=== PATIENT | male | born 1950 | race Caucasian/White ===

== ENCOUNTER → 2023-05-29 10:41 | Outpatient (REF) | payer OTHER, SELFPAY | LOC: HWRAD 10:41 | PROVIDERS: ATTENDING PHYSICIAN Specialist; FAMILY PHYSICIAN Internal Medicine | DX: C67.9 Malignant neoplasm of bladder, unspecified (principal) | CPT/HCPCS: 74178; Q9967 ==

== ENCOUNTER → 2023-10-09 11:47 | Outpatient (REF) | payer OTHER, SELFPAY ==
[2023-10-09 13:39] LABS: Blood Urea Nitrogen 17 mg/dl (9-20); Calcium 8.5 mg/dl (8.4-10.2); Carbon Dioxide 25 mmol/L (22-30); Chloride 109 mmol/L (98-107); Glucose 165 mg/dl (70-99); Potassium 4.8 mmol/L (3.5-5.1); Sodium 138 mmol/L (135-145); eGFR > 60.00
[2023-10-09 13:49] LABS: % Basophils 0.4 % (0-2); % Eosinophils 3.1 % (0-6); % Immature Granulocytes 1.5 % (0-0.5); % Lymphocytes 27.2 % (20.5-51.1); % Monocytes 8.7 % (1.7-9.3); % Neutrophils 59.1 % (42.2-75.2); Absolute Eosinophils 0.2 10^3/uL (0-0.7); Absolute Immature Granulocytes 0.1 10^3/uL (0-0.05); Absolute Monocytes 0.7 10^3/uL (0.1-0.6); Absolute Neutrophils 4.5 10^3/uL (1.4-6.5); Hemoglobin 7.9 g/dL (13.0-18.0); Mean Corp Hgb Conc. 31.6 g/dL (33.0-37.0); Mean Corpuscular Hgb 31.5 pg (27.0-31.0); Mean Corpuscular Volume 99.6 fL (80.0-94.0); Nucleated Red Blood Cells % 0 % (-); Red Blood Cell Count 2.51 10^6/uL (4.70-6.10); Red Cell Dist. Width 13.9 % (11.5-14.5); White Blood Cell Count 7.5 10^3/uL (4.8-10.8)
== END ==
LOC: OLABP 11:47
PROVIDERS: ATTENDING PHYSICIAN Family Medicine
DX: N17.9 Acute kidney failure, unspecified (principal); E11.9 Type 2 diabetes mellitus without complications; E87.1 Hypo-osmolality and hyponatremia; E83.39 Other disorders of phosphorus metabolism; M62.81 Muscle weakness (generalized); C67.9 Malignant neoplasm of bladder, unspecified; Z48.816 Encounter for surgical aftercare following surgery on the genitourinary system
CPT/HCPCS: 36415; 80048; 85025

== ENCOUNTER → 2023-10-11 11:23 | Outpatient (REF) | payer OTHER, SELFPAY ==
[2023-10-11 12:09] LABS: % Basophils 0.3 % (0-2); % Eosinophils 4.3 % (0-6); % Immature Granulocytes 1.5 % (0-0.5); % Lymphocytes 34.9 % (20.5-51.1); % Monocytes 6.8 % (1.7-9.3); % Neutrophils 52.2 % (42.2-75.2); Absolute Eosinophils 0.3 10^3/uL (0-0.7); Absolute Immature Granulocytes 0.1 10^3/uL (0-0.05); Absolute Lymphocytes 2.3 10^3/uL (1.2-3.4); Absolute Monocytes 0.4 10^3/uL (0.1-0.6); Absolute Neutrophils 3.4 10^3/uL (1.4-6.5); Hematocrit 23.9 % (39.0-52.0); Hemoglobin 7.9 g/dL (13.0-18.0); Mean Corp Hgb Conc. 33.1 g/dL (33.0-37.0); Mean Corpuscular Hgb 31.5 pg (27.0-31.0); Mean Corpuscular Volume 95.2 fL (80.0-94.0); Mean Platelet Volume 11.7 fL (7.4-10.4); Nucleated Red Blood Cells % 0 % (-); Platelet Count 125 10^3/uL (130-400); Red Blood Cell Count 2.51 10^6/uL (4.70-6.10); Red Cell Dist. Width 13.9 % (11.5-14.5); White Blood Cell Count 6.5 10^3/uL (4.8-10.8)
[2023-10-11 12:47] LABS: ALT (SGPT) 13 U/L (0-50); AST (SGOT) 22 U/L (17-59); Albumin 2.7 g/dl (3.5-5.0); Alkaline Phosphatase 90 U/L (38-126); Blood Urea Nitrogen 19 mg/dl (9-20); Calcium 9.1 mg/dl (8.4-10.2); Carbon Dioxide 23 mmol/L (22-30); Chloride 108 mmol/L (98-107); Glucose 121 mg/dl (70-99); Potassium 4.4 mmol/L (3.5-5.1); Sodium 138 mmol/L (135-145); Total Bilirubin 0.2 mg/dl (0.2-1.3); Total Protein 5.9 g/dl (6.3-8.2); eGFR > 60.00
== END ==
LOC: OLABP 11:23
PROVIDERS: ATTENDING PHYSICIAN Family Medicine
DX: N17.9 Acute kidney failure, unspecified (principal); E11.9 Type 2 diabetes mellitus without complications; E87.1 Hypo-osmolality and hyponatremia; E83.39 Other disorders of phosphorus metabolism; M62.81 Muscle weakness (generalized); C67.9 Malignant neoplasm of bladder, unspecified; Z48.816 Encounter for surgical aftercare following surgery on the genitourinary system
CPT/HCPCS: 36415; 80053; 85025

== ENCOUNTER → 2023-10-14 11:59 | Outpatient (REF) | payer OTHER, SELFPAY ==
[2023-10-14 16:32] LABS: % Basophils 0.7 % (0-2); % Immature Granulocytes 1.1 % (0-0.5); % Lymphocytes 40.5 % (20.5-51.1); % Monocytes 6.6 % (1.7-9.3); % Neutrophils 46.1 % (42.2-75.2); Absolute Eosinophils 0.3 10^3/uL (0-0.7); Absolute Immature Granulocytes 0.1 10^3/uL (0-0.05); Absolute Lymphocytes 2.3 10^3/uL (1.2-3.4); Absolute Monocytes 0.4 10^3/uL (0.1-0.6); Absolute Neutrophils 2.6 10^3/uL (1.4-6.5); Hematocrit 26.7 % (39.0-52.0); Hemoglobin 8.4 g/dL (13.0-18.0); Mean Corp Hgb Conc. 31.5 g/dL (33.0-37.0); Mean Corpuscular Hgb 31.7 pg (27.0-31.0); Mean Corpuscular Volume 100.8 fL (80.0-94.0); Mean Platelet Volume 11.9 fL (7.4-10.4); Nucleated Red Blood Cells % 0 % (-); Platelet Count 167 10^3/uL (130-400); Red Blood Cell Count 2.65 10^6/uL (4.70-6.10); Red Cell Dist. Width 14.2 % (11.5-14.5); White Blood Cell Count 5.6 10^3/uL (4.8-10.8)
== END ==
LOC: OLABP 11:59
PROVIDERS: ATTENDING PHYSICIAN Family Medicine
DX: N17.9 Acute kidney failure, unspecified (principal); E11.9 Type 2 diabetes mellitus without complications; E87.1 Hypo-osmolality and hyponatremia; E83.39 Other disorders of phosphorus metabolism; M62.81 Muscle weakness (generalized); C67.9 Malignant neoplasm of bladder, unspecified; Z48.816 Encounter for surgical aftercare following surgery on the genitourinary system
CPT/HCPCS: 36415; 85025

== ENCOUNTER → 2023-10-21 11:51 | Outpatient (REF) | payer OTHER, SELFPAY ==
[2023-10-21 12:11] LABS: % Basophils 0.7 % (0-2); % Immature Granulocytes 0.9 % (0-0.5); % Lymphocytes 45.7 % (20.5-51.1); % Monocytes 9.6 % (1.7-9.3); % Neutrophils 38.1 % (42.2-75.2); Absolute Eosinophils 0.3 10^3/uL (0-0.7); Absolute Immature Granulocytes 0.1 10^3/uL (0-0.05); Absolute Lymphocytes 2.5 10^3/uL (1.2-3.4); Absolute Monocytes 0.5 10^3/uL (0.1-0.6); Absolute Neutrophils 2.1 10^3/uL (1.4-6.5); Hematocrit 29.7 % (39.0-52.0); Hemoglobin 9.7 g/dL (13.0-18.0); Mean Corp Hgb Conc. 32.7 g/dL (33.0-37.0); Mean Corpuscular Hgb 31.4 pg (27.0-31.0); Mean Corpuscular Volume 96.1 fL (80.0-94.0); Mean Platelet Volume 12.1 fL (7.4-10.4); Nucleated Red Blood Cells % 0 % (-); Platelet Count 269 10^3/uL (130-400); Red Blood Cell Count 3.09 10^6/uL (4.70-6.10); Red Cell Dist. Width 14.3 % (11.5-14.5); White Blood Cell Count 5.4 10^3/uL (4.8-10.8)
[2023-10-21 12:20] LABS: ALT (SGPT) 13 U/L (0-50); AST (SGOT) 26 U/L (17-59); Albumin 3.3 g/dl (3.5-5.0); Alkaline Phosphatase 78 U/L (38-126); Blood Urea Nitrogen 20 mg/dl (9-20); Calcium 9.4 mg/dl (8.4-10.2); Carbon Dioxide 22 mmol/L (22-30); Chloride 106 mmol/L (98-107); Glucose 157 mg/dl (70-99); Potassium 4.6 mmol/L (3.5-5.1); Sodium 137 mmol/L (135-145); Total Bilirubin 0.2 mg/dl (0.2-1.3); Total Protein 6.2 g/dl (6.3-8.2); eGFR > 60.00
== END ==
LOC: OLABP 11:51
PROVIDERS: ATTENDING PHYSICIAN Family Medicine
DX: N17.9 Acute kidney failure, unspecified (principal); E11.9 Type 2 diabetes mellitus without complications; E87.1 Hypo-osmolality and hyponatremia; E83.39 Other disorders of phosphorus metabolism; M62.81 Muscle weakness (generalized); C67.9 Malignant neoplasm of bladder, unspecified; Z48.816 Encounter for surgical aftercare following surgery on the genitourinary system
CPT/HCPCS: 80053; 85025

== ENCOUNTER → 2023-11-11 09:58 | Outpatient (REF) | payer OTHER, SELFPAY ==
[2023-11-11 14:07] LABS: Blood Urea Nitrogen 18 mg/dl (9-20); Calcium 9.6 mg/dl (8.4-10.2); Carbon Dioxide 24 mmol/L (22-30); Chloride 103 mmol/L (98-107); Glucose 153 mg/dl (70-99); Sodium 138 mmol/L (135-145); eGFR > 60.00
[2023-11-11 14:10] LABS: Hematocrit 29.9 % (39.0-52.0); Hemoglobin 9.5 g/dL (13.0-18.0); Mean Corp Hgb Conc. 31.8 g/dL (33.0-37.0); Mean Corpuscular Hgb 29.7 pg (27.0-31.0); Mean Corpuscular Volume 93.4 fL (80.0-94.0); Platelet Count 476 10^3/uL (130-400); Red Cell Dist. Width 14.6 % (11.5-14.5); White Blood Cell Count 8.9 10^3/uL (4.8-10.8)
[2023-11-11 14:56] LABS: % Basophils 0.4 % (0-2); % Eosinophils 0.8 % (0-6); % Immature Granulocytes 7.6 % (0-0.5); % Monocytes 9.2 % (1.7-9.3); Absolute Eosinophils 0.1 10^3/uL (0-0.7); Absolute Immature Granulocytes 0.7 10^3/uL (0-0.05); Absolute Monocytes 0.8 10^3/uL (0.1-0.6); Absolute Neutrophils 5.4 10^3/uL (1.4-6.5); Nucleated Red Blood Cells % 0 % (-)
== END ==
LOC: OLABP 09:58
PROVIDERS: ATTENDING PHYSICIAN Family Medicine
DX: E78.5 Hyperlipidemia, unspecified (principal); F31.9 Bipolar disorder, unspecified; D64.9 Anemia, unspecified; F33.9 Major depressive disorder, recurrent, unspecified; N10 Acute pyelonephritis; N39.0 Urinary tract infection, site not specified; B95.2 Enterococcus as the cause of diseases classified elsewhere; B96.5 Pseudomonas (aeruginosa) (mallei) (pseudomallei) as the cause of diseases classified elsewhere; Z93.6 Other artificial openings of urinary tract status; E66.9 Obesity, unspecified; M62.81 Muscle weakness (generalized); Z85.51 Personal history of malignant neoplasm of bladder; R26.2 Difficulty in walking, not elsewhere classified; E11.9 Type 2 diabetes mellitus without complications; N17.9 Acute kidney failure, unspecified
CPT/HCPCS: 36415; 80048; 85025

== ENCOUNTER 2023-12-06 00:55 | Inpatient (IN) | payer OTHER, SELFPAY ==
[2023-12-05 22:08] VITALS: BP 146/75
[2023-12-05 22:09] VITALS: BP 146/75
[2023-12-05 22:12] VITALS: BMI 27.6
[2023-12-05 22:30] VITALS: BP 128/83
[2023-12-05 22:33] LABS: % Basophils 0.5 % (0-2); % Eosinophils 0.6 % (0-6); % Immature Granulocytes 0.8 % (0-0.5); % Lymphocytes 14.8 % (20.5-51.1); % Monocytes 9.2 % (1.7-9.3); % Neutrophils 74.1 % (42.2-75.2); Absolute Immature Granulocytes 0.1 10^3/uL (0-0.05); Absolute Monocytes 0.6 10^3/uL (0.1-0.6); Absolute Neutrophils 4.8 10^3/uL (1.4-6.5); Hematocrit 33.9 % (39.0-52.0); Hemoglobin 11.2 g/dL (13.0-18.0); Mean Corpuscular Hgb 29.4 pg (27.0-31.0); Nucleated Red Blood Cells % 0 % (-); Platelet Count 159 10^3/uL (130-400); Red Blood Cell Count 3.81 10^6/uL (4.70-6.10); Red Cell Dist. Width 14.9 % (11.5-14.5); Urine Albumin Trace (Neg - Trace); Urine Bilirubin Negative (Negative); Urine Character Very Cloudy (Clear); Urine Color Yellow; Urine Glucose Negative (Negative); Urine Ketone Negative (Negative); Urine Leukocyte 2+ (Negative); Urine Nitrite Positive (Negative); Urine Occult Blood Trace (Negative); Urine Specific Gravity 1.005 (<1.030); Urine Urobilinogen Negative (Neg - 1+); White Blood Cell Count 6.4 10^3/uL (4.8-10.8)
[2023-12-05 22:53] LABS: Lactic Acid 1.5 mmol/L (0.7-2.0)
[2023-12-05 22:54] LABS: ALT (SGPT) 16 U/L (0-50); AST (SGOT) 32 U/L (17-59); Alkaline Phosphatase 69 U/L (38-126); Blood Urea Nitrogen 18 mg/dl (9-20); Calcium 10.4 mg/dl (8.4-10.2); Carbon Dioxide 25 mmol/L (22-30); Chloride 99 mmol/L (98-107); Estimated Creatinine Clearance 52 ml/min; Glucose 180 mg/dl (70-99); Potassium 5.1 mmol/L (3.5-5.1); Sodium 136 mmol/L (135-145); Total Bilirubin 0.6 mg/dl (0.2-1.3); Total Protein 7.3 g/dl (6.3-8.2); eGFR > 60.00
[2023-12-05 23:00] VITALS: BP 129/67
--- NOTE | 2023-12-05 23:10 | ED.GENMED ---
History of Present Illness
General
Chief Complaint: Male Genito-Urinary Symptoms
Source: patient
Exam Limitations: none
Time Seen by Provider: 12/05/23 22:16
History of Present Illness
History of Present Illness:
73-year-old male who presents for weakness and dizziness. He did have a noted fall yesterday. States he is not really sure why he fell sort of lost balance. Today he became very weak. They are concerned he may have a urinary tract infection. He
does have a history of bladder cancer. Patient denies abdominal pain. Does report he had some vomiting. Denies back pain. Patient states he just feels profoundly weak.
Past History
Past History
ED Past Medical History: Other (Diverticulosis, depression, diabetes, bladder cancer, hypercholesterolemia)
ED Past Surgical History: Urological (Ileostomy, TURP, bladder tumor removed)
Phy Exam
Physical Exam
Physical Exam:
CONSTITUTIONAL Patient alert and oriented to person, place and time. Vital signs reviewed. Does appear a bit frail and weak
HEAD atraumatic, normocephalic.
EYES eyelids normal to inspection, Pupils equally round and reactive to light, Extraocular muscles intact, Conjunctiva normal, Sclera normal.
NECK normal range of motion, Trachea midline, no jugular venous distention.
RESPIRATORY CHEST No respiratory distress noted, Chest expansion equal, Bilateral breath sounds clear.
CARDIOVASCULAR regular and tachycardic.
ABDOMEN right lower abdominal ileostomy noted, very mild lower abdominal tenderness.
BACK normal inspection, no obvious deformities
UPPER EXTREMITY range of motion normal, Motor strength normal, no cyanosis, he has noted swelling to the dorsum of the right hand with mild dorsal tenderness.
LOWER EXTREMITY range of motion normal, Motor strength normal, no cyanosis, no edema. Abrasion noted to the right knee
NEURO Speech normal, No focal motor deficits, Memory normal, Cranial Nerves intact to screening exam.
SKIN skin warm, dry, and normal in color.
Sepsis
Sepsis Screening
Sepsis Assessment: Sepsis
Sepsis Screen
Sepsis Screen: Sepsis
Date: 12/06/23
Time: 00:08
Course
Orders/Labs/Results
Orders:
Orders
12/05/23 22:11
Electrocardiogram (*1) Urgent
Reason for Study: Other
Other Reason for Exam: Possible Sepsis
12/05/23 22:12
EKG- Treatment ONCE
12/05/23 22:16
Complete Blood Count/With Diff Urgent
Comprehensive Metabolic Panel Urgent
Lactic Acid Stat
Urinalysis Reflex To Culture Urgent
Date Specimen was Collected: 12/05/23
Time Specimen was Collected: 22:12
Urine Microscopic Reflex Cult Urgent
Urine Culture Urgent
KANDI Source: U
Specimen Description:
Date Specimen was Collected: 12/05/23
Time Specimen was Collected: 22:12
12/05/23 23:09
CT Head W/o Iv Contrast Urgent
Comment:
Reason For Exam: fall, weakness
CR Chest - 2 Views Urgent
Comment:
Reason For Exam: fever
Hand, Right 3 View [CR Hand - Right Min 3 Views] Urgent
Comment:
Reason For Exam: fall
Knee, Right 4 or More Views [CR Knee- Right 4 Or More View*] Urgent
Comment:
Reason For Exam: fall
12/05/23 23:14
Acetaminophen [Tylenol] 1,000 mg PO NOW STA
12/05/23 23:57
Blood Culture Urgent
KANDI Source: Blood/Venous
Specimen Description:
12/06/23 00:00
Add On- LAB Urgent
Tests Added?: DEPAKOTE LEVEL
12/06/23 00:27
Blood Culture Routine
KANDI Source: Blood/Venous
Specimen Description:
Abnormal Lab Results
12/05/23
22:16
RBC 3.81 L 10^6/uL
(4.70-6.10)
Hgb 11.2 L g/dL
(13.0-18.0)
Hct 33.9 L %
(39.0-52.0)
RDW 14.9 H %
(11.5-14.5)
MPV 11.0 H fL
(7.4-10.4)
Abs Immat Gran (auto) 0.1 H 10^3/uL
(0-0.05)
Absolute Lymphs (auto) 1.0 L 10^3/uL
(1.2-3.4)
Immature Gran % 0.8 H %
(0-0.5)
Lymphocytes % 14.8 L %
(20.5-51.1)
Glucose 180 H mg/dl
(70-99)
Calcium 10.4 H mg/dl
(8.4-10.2)
Ur Occult Blood Reflex Trace A
(Negative)
Urine Nitrite (Reflex) Positive A
(Negative)
Leukocyte Esterase Rfl 2+ A
(Negative)
Urine RBC 7-10 A /HPF
(0-2)
Urine WBC (Reflex) 16-20 A /HPF
(0-5)
Urine Bacteria (Reflex) Moderate A
(Negative)
12/05/23 22:16
12/05/23 22:16
Vital Signs
Temp: 100.9 F
Initial and Last Documented VS:
Initial Vital Signs
Pulse Resp BP Pulse Ox
113 23 146/75 93
12/05/23 22:08 12/05/23 22:08 12/05/23 22:08 12/05/23 22:08
Last Documented Vital Signs
Temp Pulse Resp BP Pulse Ox
100.9 F H 117 25 128/83 96
12/05/23 23:10 12/05/23 22:45 12/05/23 22:45 12/05/23 22:30 12/05/23 22:45
MDM/Problems Addressed
MDM/Problems Addressed:
Urinary tract infection, sepsis
*Radiology
Radiology exam reviewed: preliminary read by ED provider (No fractures noted) and radiology read reviewed
*Pulse Oximetry
Patient hypoxic: no
*EKG
Interpreted by ED Provider?: Yes
Interpretation: abnormal
Rate: tachycardiac
Rhythm: sinus
[place]: normal axis
Ischemia: non-specific ST changes
*Invoicing Machine Operator Interpretation
Rate: tachycardiac
Interpretation: abnormal
Rhythm: sinus
*Critical Care Note
Total Time (30-74mins, 75-104mins- exclusive of procedures): Not Applicable
Data Reviewed
Review of Other/Old Records Reveals: Operative Reports (Several urologic operative report reviewed from -) and Other (Urology history and physical reviewed from 2021)
Source: patient
Further Testing Considered But Not Given:
Consider CT of the abdomen but abdomen soft. Suspect UTI. Treat with antibiotics and admit
Patient Management
Discussion with other providers: Hospitalist
Escalation/DeEscalation of care consider admission/obs:
73-year-old male who presents with profound weakness. Does have nitrite positive urine and do suspect UTI but his ileostomy. No previous cultures to review. No hypoxia. Is a bit tachycardic with a low-grade temperature. Treatment IV fluids and
antipyretics. Cover with antibiotics
ED Attending Note
-
Portions of this chart may have been created with voice recognition software.� Occasional wrong word or��sound alike� substitutions may have occurred due to the inherent limitations of voice recognition software.
Discharge Plan
Departure
Patient Disposition: Admit
Date of Disposition: 12/06/23
Time of Disposition: 00:07
Admit to: Telemetry
Presentation/result/management discussed w/ accepting MD/DO: Hospitalist
Discharge Problem:
Urinary tract infection, Sepsis
Prescriptions:
No Action
metformin 500 MG tablet
500 mg PO BID
glimepiride 2 MG tablet
2 mg PO BID
divalproex 500 MG tablet extended release 24 hr
1,500 mg PO HS
rosuvastatin 10 MG tablet
10 mg PO DAILY
bupropion HCl 150 MG tablet extended release 24 hr
150 mg PO DAILY
Seroquel XR 1 EACH tablet, Ext Rel 24hr dose pack
1 ea PO HS
ascorbic acid (vitamin C) 250 MG tablet,chewable
250 mg PO TID
tamsulosin [Flomax] 0.4 mg Capsule
0.4 mg PO DAILY
Referrals:
Black Graham DO [Family Provider] -
Interventions
Interventions:
*Risk Screen - Suicide Last Done: 12/05/23 22:13
*General Assessment Last Done: 12/05/23 22:09
*Neglect/Abuse Screening Last Done: 12/05/23 22:13
ED- Fall Risk Assessment Last Done: 12/05/23 22:13
ED-Male Genitourinary Assessment Last Done: 12/05/23 22:13
Discharge Date and Time
Print Language: SPANISH
[2023-12-05 23:15] LABS: Urine Bacteria Moderate (Negative); Urine White Cell 16-20 /HPF (0-5)
[2023-12-05] MEDS: TYLENOL 1000 MG PO (23:46)
[2023-12-06] VITALS (12 sets, daily range): BP systolic 116–144; BP diastolic 54–76; PULSE 96; BMI 25.1
[2023-12-06] MEDS: NSS 1000 IV ×2 (00:43→02:41)
[2023-12-06] MEDS: MAXIPIME 2000 MG IV ×3 (00:43→17:10)
[2023-12-06 00:46] LABS: Depakane 72.3 ug/ml (50.0-120.0)
--- NOTE | 2023-12-06 00:51 | HPS.HSE ---
Addendum entered and electronically signed by Delbert Munguia DO 12/06/23 01:16:
A/P:
Fall at Home
- Patient with fall yesterday on flat surface. Pos head impact. No LOC.
- Imaging done in the ED this evening (CT head, XR R hand, knee and chest) with no evidence of acute injury.
- PT / OT evaluations.
- Follow for any new symptoms / complaints.
Original Note:
Family Physician
-
Family Physician: Black Graham
Chief Complaint
-
Fatigue, Weakness
History of Present Illness
Patient is a 73y M with PMH significant for bladder cancer who presents to ED complaining of generalized weakness and fatigue. Patient is extremely somnolent in the ED and has difficulty remaining awake to relay his recent history. He states
that he was seen at [facility] about 2 months ago and underwent cystectomy and ileal conduit formation. Patient notes that he was treated for a urinary tract infection a few weeks ago. He states that he felt similarly weak / tired at that time. He
denies any issues with his ileal conduit / changes in appearance of urine / etc over the past few days. He denies any subjective fevers / chills, cough / dyspnea, N/V/D, etc.
Patient suffered a fall at home yesterday. He states that he was walking on his driveway when his small dog walked between his legs and her tripped - falling onto his R side. He did strike his head / face on the ground. He denies any LOC. He was
able to get up unassisted. He continued to feel very weak / tired throughout the day today and presented to the ED for further evaluation.
Medical History
Past Medical History
Past Medical History: Reports Other
Additional Past Medical History:
Transitional Cell Carcinoma - Bladder Cancer
Bipolar Disorder
ADHD
DM-II
Past Surgical History: Reports Other
Additional Past Surgical History:
TURBT x multiple
Cystectomy / Ileal Conduit Formation
Skin Cancer Excision
L Hand Surgery
Social History
Tobacco: Former Smoker (Quit smoking about 10 years ago. Approx 40 pack years total use.)
Alcohol: Occasional
Drug: None
Family History
Family History: Not pertinent
Allergies / Home Medications
Allergies reflects when Allergies were last updated in [employer].
Home Medications with original date entered in [employer]
Allergy/Medication List:
Allergies
Allergy/AdvReac Type Severity Reaction Status Date / Time
Penicillins Allergy Hives Verified 12/05/23 22:06
Home Medications
divalproex 125 mg tablet,delayed release 375 mg PO QPM 12/06/23
metformin 500 mg tablet 1,000 mg PO BID 12/06/23
This is current med list per patient. Formal med rec in AM may be helpful to confirm no other / missing medications.
Review of Systems
-
History Source: Patient
A 12 point ROS was completed and negative except as noted: Yes
Constitutional: Reports Fatigue; Denies Fever or Chills
EENT: Denies Sore Throat
Respiratory: Denies Cough or Trouble Breathing
Cardiac: Denies Chest Pain or Palpitations
Abdomen/GI: Denies Abdominal Pain, Nausea, Vomiting or Diarrhea
: Denies Dysuria, Frequency or Flank Pain
Musculoskeletal: Reports Joint Pain (R shoulder, knee, hip.)
Neurological: Reports Weakness; Denies Dizzy or Headache
Physical Exam
Vital Signs
Vital Signs
Temp Pulse Resp BP Pulse Ox
100.9 F H 108 23 129/67 96
12/05/23 23:10 12/06/23 00:00 12/06/23 00:00 12/05/23 23:00 12/06/23 00:00
Physical Exam
General: Other (73y M somnolent / lethargic in the ED. Wakes to answer questions / follow commands but falls quickly back to sleep.)
HEENT: Other (Dry MM.)
Respiratory: Other (Decreased at bases - otherwise clear.)
Cardiac: S1/S2 and Regular Rhythm; No Murmur
GI: Soft, Non Distended, Normal Bowel Sounds and Other (Ileal conduit in place in the RLQ draining yellow urine. Post-surgical changes of the abdomen. No significant tenderness / rebound / guarding.)
Musculoskeletal: No Clubbing, No Cyanosis and No Edema
Psych: No Anxious or Depressed
Laboratory Results
-
12/05/23 22:16
12/05/23 22:16
Laboratory Results
Lactic Acid 1.5 mmol/L (0.7-2.0) 12/05/23 22:16
Total Bilirubin 0.6 mg/dl (0.2-1.3) 12/05/23 22:16
AST 32 U/L (17-59) 12/05/23 22:16
ALT 16 U/L (0-50) 12/05/23 22:16
Alkaline Phosphatase 69 U/L (38-126) 12/05/23 22:16
Impression/Plan
-
A/P: Patient is a 73y M with PMH significant for bladder cancer s/p recent cystectomy / ileal conduit formation who presents to ED complaining of generalized weakness and fatigue.
Complicated UTI
Sepsis secondary to the above
- Admit for further evaluation and treatment.
- Patient presents with fever, tachycardia and UA suggestive of infection in patient with new ileal conduit.
- Recent treatment for UTI (a week or two ago) per patient - send to [facility] for records.
- IV abx and adjust as needed based on culture data.
- Supportive care including IVFs, antipyretics, etc.
- Consider abdominal imaging if any new / worsening symptoms, persistent fevers, etc.
- At present, abdominal exam is benign and patient with no localizing complaints.
Acute TME
- This is most likely secondary to sepsis as noted above.
- Depakote level is within normal range - will hold for now in any event pending improvement in mental state.
- Check VBG for completeness to rule out CO2 retention - though no history that would suggest risk factors for this.
- Follow for improvement with treatment of sepsis as noted above.
Bladder Cancer
- Initially diagnosed in 2021 and multiple TURBTs since then, BCG instillation, etc.
- Most recently had cystectomy and ileal conduit formation done at [facility] about 2 months ago.
- Will send for those records for review.
- Patient states that not additional / adjuvant treatments are planned.
- He does note that he was treated with outpatient abx for urine infection about 2 weeks ago.
- Ileal conduit appears to be functioning normally. See above re: possible imaging if symptoms worsen or persist.
DM-II
- Stable. Hold metformin acutely.
- Follow glucose and cover with SSI as needed.
- Update A1C.
Bipolar Disorder
- Currently quite somnolent as noted above.
- Will hold Depakote acutely - restart once mental state is improved / baseline.
DVT Prophylaxis: Subcut Heparin
Code Status: Full
[2023-12-06] MEDS: GENTAMICIN 53.75 MG IV (01:02)
[2023-12-06 01:07] LABS: Venous Blood Gas B.E. -0.3 mmol/L (-4 to +4); Venous Blood Gas pCO2 37 mmHg (35-48); Venous Blood Gas pH 7.42 (7.32-7.43); Venous Blood Gas pO2 157 mmHg (30-50)
[2023-12-06 01:27] LABS: COVID-19 Antigen Negative (Negative)
[2023-12-06 02:19] LABS: Glucose - Point of Care 131 mg/dl (70-99)
[2023-12-06 06:55] LABS: Hematocrit 31.6 % (39.0-52.0); Hemoglobin 10.5 g/dL (13.0-18.0); Mean Corp Hgb Conc. 33.2 g/dL (33.0-37.0); Mean Corpuscular Hgb 30.1 pg (27.0-31.0); Mean Corpuscular Volume 90.5 fL (80.0-94.0); Mean Platelet Volume 10.7 fL (7.4-10.4); Platelet Count 134 10^3/uL (130-400); Red Blood Cell Count 3.49 10^6/uL (4.70-6.10); Red Cell Dist. Width 14.8 % (11.5-14.5)
[2023-12-06 07:26] LABS: Glucose - Point of Care 178 mg/dl (70-99)
[2023-12-06 08:07] LABS: ALT (SGPT) 16 U/L (0-50); AST (SGOT) 37 U/L (17-59); Albumin 3.2 g/dl (3.5-5.0); Alkaline Phosphatase 48 U/L (38-126); Blood Urea Nitrogen 16 mg/dl (9-20); Calcium 9.2 mg/dl (8.4-10.2); Carbon Dioxide 24 mmol/L (22-30); Chloride 107 mmol/L (98-107); Estimated Creatinine Clearance 64 ml/min; Glucose 66 mg/dl (70-99); Potassium 4.6 mmol/L (3.5-5.1); Sodium 142 mmol/L (135-145); Total Bilirubin 0.3 mg/dl (0.2-1.3); Total Protein 6.3 g/dl (6.3-8.2); eGFR > 60.00
[2023-12-06 08:37] LABS: TSH Reflex To Free T4 2.79 uIU/ml (0.47-4.68)
[2023-12-06 08:57] LABS: Glycohemoglobin (HgbA1c) 7.1 % (4.0-5.6)
[2023-12-06 09:15] LABS: Hepatitis C Antibody Negative (Negative)
--- NOTE | 2023-12-06 09:56 | W.PN.HOSP.TC ---
Today's Communication/Plan
-
see A/P
Assessment / Plan
Assessment / Plan
HPI: 73 yo M with PMH significant for bladder cancer who presented to ED complaining of generalized weakness and fatigue.
He stated that he was seen at [facility] about 2 months ago and underwent cystectomy and ileal conduit formation.
Patient noted that he was treated for an urinary tract infection a few weeks ago. He states that he felt similarly weak / tired at that time. He denies any issues with his ileal conduit / changes in appearance of urine / etc over the past few days.
He denies any subjective fevers / chills, cough / dyspnea, N/V/D, etc.
Patient suffered a fall at home the day [employer]. He was walking on his driveway when his small dog walked between his legs and he tripped - falling onto his R side. He did strike his head / face on the ground. He denies any LOC. He was able to get
up unassisted. He continued to feel very weak / tired throughout the day today and presented to the ED for further evaluation.
A/P:
# Generalized weakness likely 2/2 complicated UTI
# Sepsis secondary to the above
Pt with new ileal conduit,
Recent treatment for UTI (a week or two ago) per patient - pending [facility] records.
UA suggestive of infection.
Follow urine culture
Follow blood culture
Cont current Abx with cefepime and adjust as needed based on culture data.
Cont supportive care including IVFs, antipyretics, etc.
# Acute metabolic encephalopathy, most likely secondary to sepsis as noted above.
MS returned to baseline, AOX3
Depakote level is within normal range, resume [employer] Depakote
VBG checked for completeness sake, VGB unrevealing
# Fall at Home due to weakness
Imaging done in the ED (CT head, XR R hand, knee and chest) with NO evidence of acute injury.
PT / OT evaluations.
# Bladder Cancer
Initially diagnosed in 2021 and multiple TURBTs since then, BCG instillation, etc.
Most recently had cystectomy and ileal conduit formation done at [facility] about 2 months ago [employer]
Will send for those records for review.
Patient states that not additional / adjuvant treatments are planned.
He does note that he was treated with outpatient abx for urine infection about 2 weeks ago [employer]
Ileal conduit appears to be functioning normally.
# DM-II, Stable.
Hold metformin acutely.
Follow glucose and cover with SSI as needed.
Update A1C.
# Bipolar Disorder, stable
Improved MS, resume [employer] Depakote
DVT Prophylaxis: Subcut Heparin
Code Status: Full
Anticipated Discharge: 24 - 48 hours
Subjective/Interval History
-
Date of Service: December 06, 2023
Objective Data
-
Labs:
Laboratory Results
12/05/23 12/06/23
22:16 06:22
WBC 6.4 5.0
Hgb 11.2 L 10.5 L
Hct 33.9 L 31.6 L
Plt Count 159 134
Sodium 136 142
Potassium 5.1 4.6
Chloride 99 107
Carbon Dioxide 25 24
BUN 18 16
Creatinine 1.1 0.9
Glucose 180 H 66 L
Calcium 10.4 H 9.2
Total Bilirubin 0.6 0.3
AST 32 37
ALT 16 16
Alkaline Phosphatase 69 48
Vital Signs:
Vital Signs
Temp Pulse Resp BP Pulse Ox
36.8 C 92 18 144/73 98
12/06/23 07:20 12/06/23 07:20 12/06/23 07:20 12/06/23 07:20 12/06/23 07:20
I&O
12/05/23 12/06/23 12/07/23
06:59 06:59 06:59
Intake Total 500 / 500
Output Total 875 / 875
Balance -375 / -375
Review of Systems
-
All other systems: Reviewed and negative
Physical Exam
-
General: Well Developed, Well Nourished, No Apparent Distress, Comfortable and Conversant; Negative Respiratory Distress
HEENT: Normocephalic, Atraumatic, Nose Appears Normal and Ears Appear Normal; Negative Oxygen
Respiratory: Clear to Auscultation and Non Labored Respirations; Negative Accessory Resp Muscle Use
Cardiac: Regular Rhythm and S1/S2
GI: Soft, Nontender, Nondistended and Normal Bowel Sounds
Genito-urinary: Other (Ileal Conduit )
Skin: Warm and Dry
Neuro: Awake, Alert, Oriented and AO x 3
Psych: Calm and Intact Judgement/Insight
Data Reviewed
-
Labs: Labs Reviewed by me
[2023-12-06] MEDS: HEPARIN 5000 UNITS SC ×2 (10:33→20:38)
[2023-12-06] MEDS: NSS IV (10:56)
[2023-12-06 11:49] LABS: Glucose - Point of Care 153 mg/dl (70-99)
[2023-12-06] MEDS: NOVOLOG FLEXPEN-LOW RESISTANCE 1 UNITS SC ×2 (11:54→17:10)
[2023-12-06] MEDS: NOVOLOG FLEXPEN-LOW RESISTANCE SC (11:54)
[2023-12-06 16:50] LABS: Glucose - Point of Care 176 mg/dl (70-99)
[2023-12-06] MEDS: STERILE WATER FOR INJECTION 10 ML IV (17:11)
[2023-12-06] MEDS: DEPAKOTE (12 HR RELEASE) 375 MG PO (17:30)
[2023-12-06] MEDS: SEROQUEL 100 MG PO (20:38)
[2023-12-06 21:21] LABS: Glucose - Point of Care 158 mg/dl (70-99)
[2023-12-07] VITALS (7 sets, daily range): BP systolic 130–170; BP diastolic 73–87; PULSE 90–105
[2023-12-07] MEDS: STERILE WATER FOR INJECTION 10 ML IV ×3 (00:16→17:58)
[2023-12-07] MEDS: MAXIPIME 2000 MG IV ×3 (00:16→17:58)
[2023-12-07] MEDS: TYLENOL 650 MG PO (05:26)
[2023-12-07 06:49] LABS: Hematocrit 31.6 % (39.0-52.0); Hemoglobin 10.4 g/dL (13.0-18.0); Mean Corp Hgb Conc. 32.9 g/dL (33.0-37.0); Mean Corpuscular Hgb 30.2 pg (27.0-31.0); Mean Corpuscular Volume 91.9 fL (80.0-94.0); Platelet Count 146 10^3/uL (130-400); Red Blood Cell Count 3.44 10^6/uL (4.70-6.10); Red Cell Dist. Width 14.8 % (11.5-14.5); White Blood Cell Count 5.1 10^3/uL (4.8-10.8)
[2023-12-07 07:25] LABS: Blood Urea Nitrogen 14 mg/dl (9-20); Calcium 9.6 mg/dl (8.4-10.2); Carbon Dioxide 22 mmol/L (22-30); Chloride 106 mmol/L (98-107); Estimated Creatinine Clearance 64 ml/min; Glucose 127 mg/dl (70-99); Potassium 4.4 mmol/L (3.5-5.1); Sodium 140 mmol/L (135-145); eGFR > 60.00
[2023-12-07 08:38] LABS: Glucose - Point of Care 248 mg/dl (70-99)
[2023-12-07] MEDS: CRESTOR 10 MG PO (09:37)
[2023-12-07] MEDS: WELLBUTRIN XL (24 hour extended release) 150 MG PO (09:37)
[2023-12-07] MEDS: HEPARIN 5000 UNITS SC ×2 (09:37→19:52)
[2023-12-07] MEDS: NOVOLOG FLEXPEN-LOW RESISTANCE 2 UNITS SC (09:38)
--- NOTE | 2023-12-07 10:51 | W.PN.HOSP.TC ---
Today's Communication/Plan
-
see A/P
Assessment / Plan
Assessment / Plan
HPI: 73 yo M with PMH significant for bladder cancer who presented to ED complaining of generalized weakness and fatigue.
He stated that he was seen at [facility] about 2 months ago and underwent cystectomy and ileal conduit formation.
Patient noted that he was treated for an urinary tract infection a few weeks ago. He states that he felt similarly weak / tired at that time. He denies any issues with his ileal conduit / changes in appearance of urine / etc over the past few days.
He denies any subjective fevers / chills, cough / dyspnea, N/V/D, etc.
Patient suffered a fall at home the day [employer]. He was walking on his driveway when his small dog walked between his legs and he tripped - falling onto his R side. He did strike his head / face on the ground. He denies any LOC. He was able to get
up unassisted. He continued to feel very weak / tired throughout the day today and presented to the ED for further evaluation.
A/P:
# Generalized weakness likely 2/2 complicated UTI
# Sepsis secondary to the above
Pt with new ileal conduit,
Recent treatment for UTI (a week or two ago) per patient - pending [facility] records.
UA suggestive of infection. Follow urine culture
blood culture x2 negative
Cont current Abx with cefepime and adjust as needed based on culture data.
Cont supportive care including IVFs, antipyretics, etc.
# Acute metabolic encephalopathy, most likely secondary to sepsis as noted above.
MS returned to baseline, AOX3
Depakote level is within normal range, resumed [employer] Depakote
VBG checked for completeness sake, VGB unrevealing
# Fall at Home due to weakness
Imaging done in the ED (CT head, XR R hand, knee and chest) with NO evidence of acute injury.
PT / OT recc HH
# Bladder Cancer
Initially diagnosed in 2021 and multiple TURBTs since then, BCG instillation, etc.
Most recently had cystectomy and ileal conduit formation done at [facility] about 2 months ago [employer]
Will send for those records for review.
Patient states that not additional / adjuvant treatments are planned.
He does note that he was treated with outpatient abx for urine infection about 2 weeks ago [employer]
Ileal conduit appears to be functioning normally.
# DM-II, Stable.
Hold metformin acutely.
Follow glucose and cover with SSI as needed.
A1C 7.1%.
# Bipolar Disorder, stable
Improved MS, resume [employer] Depakote
DVT Prophylaxis: Subcut Heparin
Code Status: Full
Anticipated Discharge: 24 - 48 hours
Subjective/Interval History
-
Date of Service: December 07, 2023
Objective Data
-
Labs:
Laboratory Results
12/07/23
06:07
WBC 5.1
Hgb 10.4 L
Hct 31.6 L
Plt Count 146
Sodium 140
Potassium 4.4
Chloride 106
Carbon Dioxide 22
BUN 14
Creatinine 0.9
Glucose 127 H
Calcium 9.6
Vital Signs:
Vital Signs
Temp Pulse Resp BP Pulse Ox
36.8 C 91 18 137/74 98
12/07/23 07:00 12/07/23 07:00 12/07/23 07:00 12/07/23 07:00 12/07/23 07:00
I&O
12/06/23 12/07/23 12/08/23
06:59 06:59 06:59
Intake Total 500 / 500 780 / 780
Output Total 875 / 875 1200 / 1200
Balance -375 / -375 -420 / -420
Review of Systems
-
All other systems: Reviewed and negative
Physical Exam
-
General: Well Developed, Well Nourished, No Apparent Distress, Comfortable and Conversant; Negative Respiratory Distress
HEENT: Normocephalic, Atraumatic, Nose Appears Normal and Ears Appear Normal; Negative Oxygen
Respiratory: Clear to Auscultation and Non Labored Respirations; Negative Accessory Resp Muscle Use
Cardiac: Regular Rhythm and S1/S2
GI: Soft, Nontender, Nondistended and Normal Bowel Sounds
Genito-urinary: Other (Ileal Conduit )
Skin: Warm and Dry
Neuro: Awake, Alert, Oriented and AO x 3
Psych: Calm and Intact Judgement/Insight
Data Reviewed
-
Labs: Labs Reviewed by me
[2023-12-07 11:39] LABS: Glucose - Point of Care 175 mg/dl (70-99)
[2023-12-07] MEDS: NOVOLOG FLEXPEN-LOW RESISTANCE 1 UNITS SC ×2 (11:56→17:58)
[2023-12-07 16:37] LABS: Glucose - Point of Care 180 mg/dl (70-99)
[2023-12-07] MEDS: DEPAKOTE (12 HR RELEASE) 375 MG PO (17:57)
[2023-12-07] MEDS: SEROQUEL 100 MG PO (20:51)
[2023-12-07 21:51] LABS: Glucose - Point of Care 213 mg/dl (70-99)
[2023-12-08] VITALS (7 sets, daily range): BP systolic 121–158; BP diastolic 72–89; PULSE 87–96
[2023-12-08] MEDS: MAXIPIME 2000 MG IV ×4 (00:17→23:57)
[2023-12-08] MEDS: STERILE WATER FOR INJECTION 10 ML IV ×4 (00:18→23:57)
[2023-12-08] MEDS: TYLENOL 650 MG PO (04:57)
[2023-12-08 06:37] LABS: Hematocrit 30.7 % (39.0-52.0); Hemoglobin 10.1 g/dL (13.0-18.0); Mean Corp Hgb Conc. 32.9 g/dL (33.0-37.0); Mean Corpuscular Hgb 29.8 pg (27.0-31.0); Mean Corpuscular Volume 90.6 fL (80.0-94.0); Mean Platelet Volume 10.7 fL (7.4-10.4); Platelet Count 168 10^3/uL (130-400); Red Blood Cell Count 3.39 10^6/uL (4.70-6.10); Red Cell Dist. Width 14.6 % (11.5-14.5)
[2023-12-08 06:58] LABS: Blood Urea Nitrogen 15 mg/dl (9-20); Carbon Dioxide 23 mmol/L (22-30); Chloride 106 mmol/L (98-107); Estimated Creatinine Clearance 72 ml/min; Glucose 149 mg/dl (70-99); Potassium 4.4 mmol/L (3.5-5.1); Sodium 140 mmol/L (135-145); eGFR > 60.00
[2023-12-08 07:59] LABS: Glucose - Point of Care 210 mg/dl (70-99)
[2023-12-08] MEDS: CRESTOR 10 MG PO (08:02)
[2023-12-08] MEDS: HEPARIN 5000 UNITS SC ×2 (08:02→20:32)
[2023-12-08] MEDS: NOVOLOG FLEXPEN-LOW RESISTANCE 2 UNITS SC (08:02)
[2023-12-08] MEDS: WELLBUTRIN XL (24 hour extended release) 150 MG PO (08:07)
[2023-12-08 11:39] LABS: Glucose - Point of Care 178 mg/dl (70-99)
--- NOTE | 2023-12-08 12:58 | W.PN.HOSP.TC ---
Today's Communication/Plan
-
see A/P
Assessment / Plan
Assessment / Plan
HPI: 73 yo M with PMH significant for bladder cancer who presented to ED complaining of generalized weakness and fatigue.
He stated that he was seen at [facility] about 2 months ago and underwent cystectomy and ileal conduit formation.
Patient noted that he was treated for an urinary tract infection a few weeks ago. He states that he felt similarly weak / tired at that time. He denies any issues with his ileal conduit / changes in appearance of urine / etc over the past few days.
He denies any subjective fevers / chills, cough / dyspnea, N/V/D, etc.
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 He was walking on his driveway when his small dog walked between his legs and he tripped - falling onto his R side. He did strike his head / face on the ground. He denies any LOC. He was able to get
up unassisted. He continued to feel very weak / tired throughout the day today and presented to the ED for further evaluation.
A/P:
# Generalized weakness likely 2/2 complicated UTI
# Sepsis secondary to the above
Pt with new ileal conduit,
Recent treatment for UTI (a week or two ago) per patient - pending [facility] records.
UA suggestive of infection. Follow urine culture, positive for Serratia and Pseudomonas
blood culture x2 negative
Cont current Abx with cefepime and adjust as needed based on culture data.
Cont supportive care including antipyretics, etc.
# Acute metabolic encephalopathy, most likely secondary to sepsis as noted above.
MS returned to baseline, AOX3
Depakote level is within normal range, resumed VISITING HOUSEKEEPER Depakote
VBG checked for completeness sake, VGB was unrevealing
# Fall at Home due to weakness
Imaging done in the ED (CT head, XR R hand, knee and chest) with NO evidence of acute injury.
PT / OT recc HH
# Bladder Cancer
Initially diagnosed in 2021 and multiple TURBTs since then, BCG instillation, etc.
Most recently had cystectomy and ileal conduit formation done at [facility] about 2 months ago VISITING HOUSEKEEPER
Will send for those records for review.
Patient states that not additional / adjuvant treatments are planned.
He does note that he was treated with outpatient abx for urine infection about 2 weeks ago VISITING HOUSEKEEPER
Ileal conduit appears to be functioning normally.
# DM-II, Stable.
Hold metformin acutely.
Follow glucose and cover with SSI as needed.
A1C 7.1%.
# Bipolar Disorder, stable
Improved MS, resume VISITING HOUSEKEEPER Depakote
DVT Prophylaxis: Subcut Heparin
Code Status: Full
Anticipated Discharge: 24 - 48 hours
Subjective/Interval History
-
Date of Service: December 08, 2023
Objective Data
-
Labs:
Laboratory Results
12/08/23
06:21
WBC 5.0
Hgb 10.1 L
Hct 30.7 L
Plt Count 168
Sodium 140
Potassium 4.4
Chloride 106
Carbon Dioxide 23
BUN 15
Creatinine 0.8
Glucose 149 H
Calcium 10.0
Vital Signs:
Vital Signs
Temp Pulse Resp BP Pulse Ox
36.6 C 90 16 147/77 98
12/08/23 11:23 12/08/23 11:23 12/08/23 11:23 12/08/23 11:23 12/08/23 11:23
I&O
12/07/23 12/08/23 12/09/23
06:59 06:59 06:59
Intake Total 780 / 780 1470 / 1470
Output Total 1200 / 1200 2250 / 2250
Balance -420 / -420 -780 / -780
Review of Systems
-
All other systems: Reviewed and negative
Physical Exam
-
General: Well Developed, Well Nourished, No Apparent Distress, Comfortable and Conversant; Negative Respiratory Distress
HEENT: Normocephalic, Atraumatic, Nose Appears Normal and Ears Appear Normal; Negative Oxygen
Respiratory: Clear to Auscultation and Non Labored Respirations; Negative Accessory Resp Muscle Use
Cardiac: Regular Rhythm and S1/S2
GI: Soft, Nontender, Nondistended and Normal Bowel Sounds
Genito-urinary: Other (Ileal Conduit )
Skin: Warm and Dry
Neuro: Awake, Alert, Oriented and AO x 3
Psych: Calm and Intact Judgement/Insight
Data Reviewed
-
Labs: Labs Reviewed by me
[2023-12-08] MEDS: NOVOLOG FLEXPEN-LOW RESISTANCE 1 UNITS SC ×2 (13:51→17:51)
--- NOTE | 2023-12-08 16:00 | CM ---
Met with patient at the bedside; initial assessment completed
Pharmacy verified: [facility] @ [id number], [place], [place]
Patient lives with in a multilevel home; 4 steps to enter; 14 steps to 2nd floor master BR/Bath; bath has stall shower with seat/grab bar; powder room on the 1st floor
PLOF: independent with ambulation, stairs, and ADLs; drives; retired
Recent SNF stay in 11/25 @ [facility]; [facility] w/ [facility] prior to admission; agreeable to HH care with [facility]; referral sent via [facility]
Son will provide transport home
Plan: Discharge to home when medically stable with Home Health Services from [facility]
[2023-12-08] MEDS: DEPAKOTE (12 HR RELEASE) 375 MG PO (16:40)
[2023-12-08 16:58] LABS: Glucose - Point of Care 179 mg/dl (70-99)
[2023-12-08] MEDS: SEROQUEL 100 MG PO (20:32)
[2023-12-08 21:38] LABS: Glucose - Point of Care 191 mg/dl (70-99)
[2023-12-09 03:00] VITALS: BP 125/72
[2023-12-09 06:53] LABS: Hematocrit 31.5 % (39.0-52.0); Hemoglobin 10.2 g/dL (13.0-18.0); Mean Corp Hgb Conc. 32.4 g/dL (33.0-37.0); Mean Corpuscular Hgb 28.8 pg (27.0-31.0); Mean Platelet Volume 10.5 fL (7.4-10.4); Platelet Count 214 10^3/uL (130-400); Red Blood Cell Count 3.54 10^6/uL (4.70-6.10); Red Cell Dist. Width 14.5 % (11.5-14.5); White Blood Cell Count 5.7 10^3/uL (4.8-10.8)
[2023-12-09 07:25] LABS: Blood Urea Nitrogen 21 mg/dl (9-20); Calcium 10.1 mg/dl (8.4-10.2); Carbon Dioxide 22 mmol/L (22-30); Chloride 107 mmol/L (98-107); Estimated Creatinine Clearance 64 ml/min; Glucose 158 mg/dl (70-99); Potassium 4.5 mmol/L (3.5-5.1); Sodium 141 mmol/L (135-145); eGFR > 60.00
[2023-12-09 07:40] VITALS: BP 119/81
[2023-12-09 07:41] VITALS: BP 119/81; BP 140/82; BP 148/84; PULSE 89; PULSE 95; PULSE 99
[2023-12-09] MEDS: CRESTOR 10 MG PO (08:10)
[2023-12-09] MEDS: HEPARIN 5000 UNITS SC (08:11)
[2023-12-09] MEDS: MAXIPIME 2000 MG IV (08:12)
[2023-12-09] MEDS: STERILE WATER FOR INJECTION 10 ML IV (08:13)
[2023-12-09] MEDS: WELLBUTRIN XL (24 hour extended release) 150 MG PO (08:13)
[2023-12-09 08:15] LABS: Glucose - Point of Care 220 mg/dl (70-99)
[2023-12-09] MEDS: NOVOLOG FLEXPEN-LOW RESISTANCE 2 UNITS SC (08:36)
[2023-12-09 11:12] VITALS: BP 129/83
[2023-12-09 11:58] LABS: Glucose - Point of Care 179 mg/dl (70-99)
--- NOTE | 2023-12-09 11:59 | W.PN.HOSP.TC ---
Today's Communication/Plan
-
Monitor vital signs see plan
Switch antibiotics to oral
Patient will follow with urology outpatient
Discharge today
Time of discharge 37-minutes
Assessment / Plan
Assessment / Plan
HPI: 73 yo M with PMH significant for bladder cancer who presented to ED complaining of generalized weakness and fatigue.
He stated that he was seen at [facility] about 2 months ago and underwent cystectomy and ileal conduit formation.
Patient noted that he was treated for an urinary tract infection a few weeks ago. He states that he felt similarly weak / tired at that time. He denies any issues with his ileal conduit / changes in appearance of urine / etc over the past few days.
He denies any subjective fevers / chills, cough / dyspnea, N/V/D, etc.
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 He was walking on his driveway when his small dog walked between his legs and he tripped - falling onto his R side. He did strike his head / face on the ground. He denies any LOC. He was able to get
up unassisted. He continued to feel very weak / tired throughout the day today and presented to the ED for further evaluation.
A/P:
# Generalized weakness likely 2/2 complicated UTI
# Sepsis secondary to the above
Pt with new ileal conduit,
Recent treatment for UTI (a week or two ago) per patient - pending [facility] records.
UA suggestive of infection. Follow urine culture, positive for Serratia and Pseudomonas. sensitive to cipro
blood culture x2 negative
dc on cipro
Cont supportive care including antipyretics, etc.
# Acute metabolic encephalopathy, most likely secondary to sepsis as noted above.
MS returned to baseline, AOX3
Depakote level is within normal range, resumed SPEECH AND LANGUAGE CLINICIAN Depakote
VBG checked for completeness sake, VGB was unrevealing
# Fall at Home due to weakness
Imaging done in the ED (CT head, XR R hand, knee and chest) with NO evidence of acute injury.
PT / OT recc HH
# Bladder Cancer
Initially diagnosed in 2021 and multiple TURBTs since then, BCG instillation, etc.
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
Will send for those records for review.
Patient states that not additional / adjuvant treatments are planned.
He does note that he was treated with outpatient abx for urine infection about 2 weeks ago [employer]ECH AND LANGUAGE CLINICIAN
Ileal conduit appears to be functioning normally.
# DM-II, Stable.
Hold metformin acutely.
Follow glucose and cover with SSI as needed.
A1C 7.1%.
# Bipolar Disorder, stable
Improved MS, resume SPEECH AND LANGUAGE CLINICIAN Depakote
DVT Prophylaxis: Subcut Heparin
Code Status: Full
General: Well Developed, Well Nourished, No Apparent Distress, Comfortable and Conversant; Negative Respiratory Distress
HEENT: Normocephalic, Atraumatic, Nose Appears Normal and Ears Appear Normal; Negative Oxygen
Respiratory: Clear to Auscultation and Non Labored Respirations; Negative Accessory Resp Muscle Use
Cardiac: Regular Rhythm and S1/S2
GI: Soft, Nontender, Nondistended and Normal Bowel Sounds
Genito-urinary: Other (Ileal Conduit )
Skin: Warm and Dry
Neuro: Awake, Alert, Oriented and AO x 3
Psych: Calm and Intact Judgement/Insight
Anticipated Discharge: Today
Subjective/Interval History
-
Date of Service: December 09, 2023
denies pain
Objective Data
-
Labs:
Laboratory Results
12/09/23
06:16
WBC 5.7
Hgb 10.2 L
Hct 31.5 L
Plt Count 214 D
Sodium 141
Potassium 4.5
Chloride 107
Carbon Dioxide 22
BUN 21 H
Creatinine 0.9
Glucose 158 H
Calcium 10.1
Vital Signs:
Vital Signs
Temp Pulse Resp BP Pulse Ox
98.7 F 87 16 129/83 98
12/09/23 11:12 12/09/23 11:12 12/09/23 11:12 12/09/23 11:12 12/09/23 11:12
I&O
12/08/23 12/09/23 12/10/23
06:59 06:59 06:59
Intake Total 1470 / 1470 1620 / 1620
Output Total 2250 / 2250 1900 / 1900
Balance -780 / -780 -280 / -280
--- NOTE | 2023-12-09 12:15 | W.DCSUMMARY ---
Discharge Summary
Discharge Data
Date of Admission: 12/06/23
Date of Discharge: 12/09/23
-
Pending Results: No
Hospital Course
73-year-old male with past medical history of bladder cancer came to the hospital with generalized weakness and sepsis which was likely thought was secondary to complicate urinary tract infection given his recent procedure of new ileal conduit.
Patient was initially on IV antibiotics which were later transitioned to oral antibiotics prior to discharge. His urine culture was positive with Pseudomonas and Serratia. He also had acute metabolic encephalopathy secondary to sepsis which over
time continue to improve. Once his symptoms continue to improve, he was then discharged home with instructions to follow-up with all his physicians outpatient.
Discharge Plan
-
Patient Disposition: Home (Routine Discharge)
Discharge Diagnosis/Procedures: Complicated urinary tract infection
Acute metabolic encephalopathy
Diet: As tolerated and Diabetic, Carb Controlled
Activity: As tolerated
Driving Restrictions: As prior to admission
Bathing Restrictions: None
Activity Restrictions/Additional Instructions:
Follow-up with your urologist outpatient
Referrals:
Black Graham, [Family Provider] - in less than 1 week
Prescriptions:
New
ciprofloxacin HCl 500 mg tablet
500 mg PO BID Qty: 14 0RF
Continued
metformin 500 mg Tablet
500 mg PO BID
divalproex 125 mg Tablet,Delayed Release (Dr/Ec)
1,500 mg PO QPM
quetiapine 100 mg Tablet
100 mg PO HS
glimepiride 2 mg Tablet
2 mg PO BID
omega-3 fatty acids Capsule
1 cap PO DAILY
rosuvastatin 10 mg Tablet
10 mg PO DAILY
bupropion HCl 150 mg Tablet Extended Release 24 Hr
150 mg PO DAILY
Discharge Orders:
Discharge Patient (As Directed); Ordered 12/09/23
Ordered By: Kurt Lira
Discharge Date and Time
Discharge Date/Time: 12/09/23 14:08
Print Language: INDONESIAN
[2023-12-09] MEDS: NOVOLOG FLEXPEN-LOW RESISTANCE 1 UNITS SC (12:51)
[2023-12-09] MEDS: FLUAD (65 yr+) 2024-2025 FORMULA 0.5 ML IM (12:52)
--- NOTE | 2023-12-09 13:27 | CM ---
Reviewed chart, patient medically stable for discharge. Met with patient who is agreeable and signed IMM after it was reviewed. He stated that family will come to pick him up.
Plan: Case management will continue to follow and assist with discharge planning. Home.
== END 2023-12-09 14:08 | disposition home or self-care (01) | DRG 871 ==
LOC: 3 WEST ACU 00:55
PROVIDERS: Internal Medicine; Student in an Organized Health Care Education/Training Program; ADMITTING PHYSICIAN Hospitalist; ATTENDING PHYSICIAN Internal Medicine; EMERGENCY PHYSICIAN Emergency Medicine; FAMILY PHYSICIAN Internal Medicine
DX: A41.9 Sepsis, unspecified organism (principal); G93.41 Metabolic encephalopathy; N39.0 Urinary tract infection, site not specified; Z87.891 Personal history of nicotine dependence; C67.9 Malignant neoplasm of bladder, unspecified; E11.9 Type 2 diabetes mellitus without complications; F31.9 Bipolar disorder, unspecified
CPT/HCPCS: 70450; 71046; 73130; 73564; 80048; 80053; 80164; 81003; 81015; 82248; 82805; 82962; 83036; 83605; 83735; 84443; 85025; 85027; 86803; 87040; 87077; 87086; 87186; 87811; 90662; 93005; 96374; 97162; 97166; 99285; G0008

== ENCOUNTER → 2024-01-02 13:17 | Outpatient (REF) | payer OTHER, SELFPAY | LOC: RCS 13:17 | PROVIDERS: ATTENDING PHYSICIAN Nurse Practitioner Family; FAMILY PHYSICIAN Internal Medicine | DX: E87.5 Hyperkalemia (principal) | CPT/HCPCS: 93005 ==

== ENCOUNTER → 2024-01-28 14:19 | Outpatient (REF) | payer OTHER, SELFPAY | LOC: RAD 14:19 | PROVIDERS: ATTENDING PHYSICIAN Physician Assistant; FAMILY PHYSICIAN Internal Medicine | DX: C67.4 Malignant neoplasm of posterior wall of bladder (principal) | CPT/HCPCS: 74178; Q9967 ==

== ENCOUNTER 2024-03-21 01:10 | Inpatient (IN) | payer OTHER, SELFPAY ==
[2024-03-20 19:47] VITALS: BP 116/67
[2024-03-20 19:51] VITALS: BP 116/67
[2024-03-20 19:57] VITALS: BMI 25.5
[2024-03-20 20:00] VITALS: BP 109/70
--- NOTE | 2024-03-20 20:33 | ED.GENMED ---
History of Present Illness
General
Chief Complaint: Weakness
Source: patient
Time Seen by Provider: 03/20/24 20:01
History of Present Illness
History of Present Illness:
This is a 74 y/o male with PMH of bladder cancer who presents to the ED c/o generalized weakness. He admits to feeling so weak his legs 'may give out' and is unable to walk at this time. Pt states he took Tylenol earlier today. He is currently being
tx for a UTI but is unsure when he was diagnosed with it and not sure which specific ABX he is currently taking. Admits to fatigue, mild headache and some abdominal pain when trying to sit up. Admits to decreased appetite. Pt underwent cystectomy
and ileal conduit formation in Oct 2023 and currently has an ostomy. Denies tobacco use and admits to alcohol use on occasion.
Past History
Past History
ED Past Medical History: Other (Diverticulosis, depression, diabetes, bladder cancer, hypercholesterolemia)
ED Past Surgical History: Urological (Ileostomy, TURP, bladder tumor removed)
Phy Exam
Physical Exam
Physical Exam:
Skin: Pale, soft; turgor with delayed recoil
Head: Atraumatic, normocephalic; scalp, pink freely moveable without tenderness
Eyes: sclerae non-icteric; PERRLA
Chest and Lungs: muscle and respiratory effort symmetric without use of accessory muscles; vesicular breath sounds without adventitious sounds; even, quiet breathing
Heart: No lifts or heaves visible; regular rate and rhythm; No murmurs, rubs or gallops
PV: radial, dorsalis pedis and posterior tibial pulses all intact bilaterally
Abdomen: soft, flat, non-distended abdomen; aorta midline with no visible pulsation; normoactive bowel sounds
Course
Orders/Labs/Results
Orders:
Orders
03/20/24 20:41
0.9% Sodium Chloride 1000 ml [Nss] 1,000 ml IV BOLUS
03/20/24 20:42
CT Head W/o Iv Contrast Urgent
Comment:
Reason For Exam: altered mental status
CR Chest - 2 Views Urgent
Comment:
Reason For Exam: altered mental status
03/20/24 20:45
Lactic Acid Q4H
Comment: CANCEL 2nd LACTIC ACID IF 1st LACTIC ACID IS LESS THAN 2
03/20/24 21:13
Ammonia Urgent
Complete Blood Count/With Diff Urgent
Comprehensive Metabolic Panel Urgent
Blood Culture Q30M
KANDI Source: Blood/Venous
Specimen Description:
Blood Culture Q30M
KANDI Source: Blood/Venous
Specimen Description:
03/20/24 21:14
COVID-19 Antigen Urgent
Source: Nasal Swab
Influenza A+B Rapid Molecular Urgent
KANDI Source: Nasal Swab
Specimen Description:
03/21/24 00:45
Lactic Acid Q4H
Comment: CANCEL 2nd LACTIC ACID IF 1st LACTIC ACID IS LESS THAN 2
Abnormal Lab Results
03/20/24
21:13
RBC 4.12 L 10^6/uL
(4.70-6.10)
Hgb 11.8 L g/dL
(13.0-18.0)
Hct 37.0 L %
(39.0-52.0)
MCHC 31.9 L g/dL
(33.0-37.0)
RDW 17.2 H %
(11.5-14.5)
Abs Immat Gran (auto) 0.6 H 10^3/uL
(0-0.05)
Absolute Neuts (auto) 7.0 H 10^3/uL
(1.4-6.5)
Absolute Monos (auto) 1.1 H 10^3/uL
(0.1-0.6)
Immature Gran % 5.1 H %
(0-0.5)
Lymphocytes % 18.3 L %
(20.5-51.1)
Monocytes % 9.8 H %
(1.7-9.3)
Carbon Dioxide 17 L mmol/L
(-30)
BUN 45 H mg/dl
(9-20)
Creatinine 1.8 H mg/dL
(0.7-1.3)
Glucose 115 H mg/dl
(70-99)
AST 85 H U/L
(17-59)
Ammonia < 9 L umol/L
(30)
03/20/24 21:13
03/20/24 21:13
Vital Signs
Initial and Last Documented VS:
Initial Vital Signs
Temp Pulse Resp BP Pulse Ox
97.6 F 98 19 116/67 97
03/20/24 19:47 03/20/24 19:47 03/20/24 19:47 03/20/24 19:47 03/20/24 19:47
Last Documented Vital Signs
Temp Pulse Resp BP Pulse Ox
97.6 F 93 18 109/70 97
03/20/24 19:47 03/20/24 21:30 03/20/24 21:30 03/20/24 20:00 03/20/24 21:30
MDM/Problems Addressed
MDM/Problems Addressed:
74 y/o male with PMH of bladder cancer and is currently being tx for a UTI. Complaints of generalized weakness and fatigue. Pt is unable to walk due to weakness. Pt currently does not meet SIRS criteria but had a similar presentation in the past
when septic from a UTI in Dec 2023.
*Critical Care Note
Total Time (30-74mins, 75-104mins- exclusive of procedures): Not Applicable
ED Attending Note
-
Portions of this chart may have been created with voice recognition software.� Occasional wrong word or��sound alike� substitutions may have occurred due to the inherent limitations of voice recognition software.
Discharge Plan
Departure
Prescriptions:
No Action
metformin 500 mg Tablet
500 mg PO BID
divalproex 125 mg Tablet,Delayed Release (Dr/Ec)
1,500 mg PO QPM
quetiapine 100 mg Tablet
100 mg PO HS
glimepiride 2 mg Tablet
2 mg PO BID
omega-3 fatty acids Capsule
1 cap PO DAILY
rosuvastatin 10 mg Tablet
10 mg PO DAILY
bupropion HCl 150 mg Tablet Extended Release 24 Hr
150 mg PO DAILY
ciprofloxacin HCl 500 mg tablet
500 mg PO BID Qty: 14 0RF
Referrals:
Black Graham, [Family Provider] -
Interventions
Interventions:
*Risk Screen - Suicide Last Done: 03/20/24 19:47
*General Assessment Last Done: 03/20/24 19:58
*Neglect/Abuse Screening Last Done: 03/20/24 19:47
ED- Fall Risk Assessment Last Done: 03/20/24 19:58
*ED COVID-19 Vaccine History Last Done: 03/20/24 19:58
ED- Cardiac Assessment Last Done: 03/20/24 19:58
ED- Neurological Assessment Last Done: 03/20/24 19:58
ED- Pulmonary Assessment Last Done: 03/20/24 19:58
Discharge Date and Time
Print Language: ALGERIAN
[2024-03-20 21:46] LABS: % Basophils 0.8 % (0-2); % Eosinophils 0.6 % (0-6); % Immature Granulocytes 5.1 % (0-0.5); % Lymphocytes 18.3 % (20.5-51.1); % Monocytes 9.8 % (1.7-9.3); % Neutrophils 65.4 % (42.2-75.2); Absolute Basophils 0.1 10^3/uL (0-0.2); Absolute Eosinophils 0.1 10^3/uL (0-0.7); Absolute Immature Granulocytes 0.6 10^3/uL (0-0.05); Absolute Monocytes 1.1 10^3/uL (0.1-0.6); Hemoglobin 11.8 g/dL (13.0-18.0); Mean Corp Hgb Conc. 31.9 g/dL (33.0-37.0); Mean Corpuscular Hgb 28.6 pg (27.0-31.0); Mean Corpuscular Volume 89.8 fL (80.0-94.0); Nucleated Red Blood Cells % 0 % (-); Red Blood Cell Count 4.12 10^6/uL (4.70-6.10); Red Cell Dist. Width 17.2 % (11.5-14.5); White Blood Cell Count 10.7 10^3/uL (4.8-10.8)
[2024-03-20 21:49] LABS: Ammonia < 9 umol/L (9-30)
[2024-03-20 21:52] LABS: ALT (SGPT) 34 U/L (0-50); AST (SGOT) 85 U/L (17-59); Albumin 3.8 g/dl (3.5-5.0); Alkaline Phosphatase 107 U/L (38-126); Blood Urea Nitrogen 45 mg/dl (9-20); Calcium 9.9 mg/dl (8.4-10.2); Carbon Dioxide 17 mmol/L (22-30); Chloride 102 mmol/L (98-107); Estimated Creatinine Clearance 32 ml/min; Glucose 115 mg/dl (70-99); Potassium 5.1 mmol/L (3.5-5.1); Sodium 135 mmol/L (135-145); Total Bilirubin 0.5 mg/dl (0.2-1.3); Total Protein 7.4 g/dl (6.3-8.2); eGFR 38.53
[2024-03-20] MEDS: NSS 1000 IV (22:00)
[2024-03-20 22:01] LABS: COVID-19 Antigen Negative (Negative)
[2024-03-20 22:03] LABS: Mean Platelet Volume 10.3 fL (7.4-10.4); Platelet Count 226 10^3/uL (130-400)
[2024-03-20 22:13] LABS: Urine Albumin Trace (Neg - Trace); Urine Bilirubin Negative (Negative); Urine Character Clear (Clear); Urine Color Yellow; Urine Glucose Negative (Negative); Urine Ketone Negative (Negative); Urine Leukocyte 2+ (Negative); Urine Nitrite Negative (Negative); Urine Occult Blood 1+ (Negative); Urine Urobilinogen Negative (Neg - 1+)
[2024-03-20 22:20] LABS: Urine Squamous Cell 0-2 /LPF (Few)
[2024-03-20 22:21] LABS: Urine Yeast Few (Negative)
[2024-03-20 22:22] LABS: Urine Bacteria Moderate (Negative)
[2024-03-20 23:00] VITALS: BP 141/69
[2024-03-20 23:25] LABS: Lactic Acid 1.9 mmol/L (0.7-2.0)
[2024-03-21] VITALS (9 sets, daily range): BP systolic 128–149; BP diastolic 61–82; PULSE 65–97; O2SAT 97; BMI 24.6
--- NOTE | 2024-03-21 00:16 | ED.GENMED ---
History of Present Illness
General
Chief Complaint: Weakness
Time Seen by Provider: 03/20/24 20:01
History of Present Illness
History of Present Illness:
see previous note
Past History
Past History
ED Past Medical History: Other (Diverticulosis, depression, diabetes, bladder cancer, hypercholesterolemia)
ED Past Surgical History: Urological (Ileostomy, TURP, bladder tumor removed)
Phy Exam
Physical Exam
Physical Exam:
see previous note
Course
Orders/Labs/Results
Orders:
Orders
03/20/24 20:41
0.9% Sodium Chloride 1000 ml [Nss] 1,000 ml IV BOLUS
03/20/24 20:42
CT Head W/o Iv Contrast Urgent
Comment:
Reason For Exam: altered mental status
CR Chest - 2 Views Urgent
Comment:
Reason For Exam: altered mental status
03/20/24 21:13
Ammonia Urgent
Complete Blood Count/With Diff Urgent
Comprehensive Metabolic Panel Urgent
Creatine Phosphokinase Urgent
Blood Culture Q30M
KANDI Source: Blood/Venous
Specimen Description:
Blood Culture Q30M
KANDI Source: Blood/Venous
Specimen Description:
03/20/24 21:14
COVID-19 Antigen Urgent
Source: Nasal Swab
Influenza A+B Rapid Molecular Urgent
KANDI Source: Nasal Swab
Specimen Description:
03/20/24 22:07
Urine Microscopic Reflex Cult Urgent
Urine Reflex Culture from UA [Urinalysis Reflex To Culture] Urgent
Date Specimen was Collected: 03/20/24
Time Specimen was Collected: 22:05
Urine Culture Urgent
KANDI Source: U
Specimen Description:
Date Specimen was Collected: 03/20/24
Time Specimen was Collected: 22:05
03/20/24 22:50
Lactic Acid Q4H
Comment: CANCEL 2nd LACTIC ACID IF 1st LACTIC ACID IS LESS THAN 2
03/21/24 00:19
Pt Eval And Treat Urgent
Activity Level: With Assistance
03/21/24 00:55
Admit/Transfer Patient As Directed
Co-Sign Provider:
Level of Care: Inpatient admission
Assign to:: Medical/Surgical
Physician / Group: hospitalist
Diagnosis: acute kidney injury
Reason for Hospitalization: acute kidney injury
Expected length of stay greater than two midnights?: Yes
ELOS- Estimated Length of Stay in days: 2
I certify the patient meets the requirements for IP care: Yes
PRN Pain Medication Management As Directed
May give lesser potent ordered pain med per pt: Yes
preference::
Protocol:: Medication orders for pain may be administered in a
manner that supports deferring to patient preference
when the pt is:
- Requesting an ordered lesser potent pain medication.
Least to most potent pain medications are defined
as: acetaminophen < NSAID < tramadol < opioids
(morphine, oxycodone, hydromorphone).
- Requesting a lesser dose of the same medication IF
ORDERED.
- Requesting a less intrusive route of administration
if both routes are prescribed by the provider (PO <
IV).
03/21/24 00:56
Code Status As Directed
Resuscitation Status: Full Code
03/21/24 01:00
Flush (0.9% Sodium Chloride) [Flush (Nss)] See Dose Instructions IV PER PROTOCOL
03/21/24 01:01
Add On- LAB Stat
Tests Added?: CPK
03/21/24 01:03
Aztreonam [Azactam] 2,000 mg IV NOW STA
Sterile Water [Sterile Water For Injection] 10 ml IV NOW STA
03/21/24 01:30
0.45% Sodium Chloride 1000 ml [0.45%NaCl] 1,000 ml Sodium Bicarbonate 75 meq IV 150 mls/hr
03/21/24 02:28
Acetaminophen [Tylenol] 650 mg PO Q4HPRN PRN
Bisacodyl [Dulcolax] 10 mg RECTAL [id number] PRN
Docusate W/Senna [Senokot-S] 1 tablet PO BIDPRN PRN
Polyethylene Glycol Powder [Miralax] 17 grams PO DAILYPRN PRN
03/21/24 02:28
Activity As Directed
Activity Level: With Assistance
Orthostatic Vital Signs As Directed
Orthostatic VS Frequency: Daily
Vital Signs As Directed
Frequency: Per unit guidelines
Kidney & Bladder US [US Renal With Bladder] Routine
Comment:
Reason For Exam: acute kidney injury, eval hydro, h/o ileal conduit
DX Deep Vein Thrombosis Video Routine
03/21/24 Breakfast
2000 calorie (17 carb) Diabetic
At Your Request: Limited Participation
Basic Metabolic Panel IN AM
Complete Blood Count/No Diff IN AM
Creatine Phosphokinase IN AM
TSH IN AM
03/21/24 08:00
Bupropion(24Hr)Extended Releas [WELLBUTRIN XL (24 hour extended release)] 150 mg PO DAILY
Glimepiride [Amaryl] 2 mg PO BID AT 0800,1700
Heparin 5,000 units SC Q8
03/21/24 10:00
Aztreonam [Azactam] 2,000 mg IV Q8H
03/21/24 18:00
Divalproex Delayed Rel. 12 Hr [Depakote (12 Hr Release)] 1,500 mg PO QPM
03/21/24 22:00
Quetiapine Fumarate [Seroquel] 100 mg PO HS
Abnormal Lab Results
03/20/24 03/20/24
21:13 22:07
RBC 4.12 L 10^6/uL
(4.70-6.10)
Hgb 11.8 L g/dL
(13.0-18.0)
Hct 37.0 L %
(39.0-52.0)
MCHC 31.9 L g/dL
(33.0-37.0)
RDW 17.2 H %
(11.5-14.5)
Abs Immat Gran (auto) 0.6 H 10^3/uL
(0-0.05)
Absolute Neuts (auto) 7.0 H 10^3/uL
(1.4-6.5)
Absolute Monos (auto) 1.1 H 10^3/uL
(0.1-0.6)
Immature Gran % 5.1 H %
(0-0.5)
Lymphocytes % 18.3 L %
(20.5-51.1)
Monocytes % 9.8 H %
(1.7-9.3)
Carbon Dioxide 17 L mmol/L
(22-30)
BUN 45 H mg/dl
(9-20)
Creatinine 1.8 H mg/dL
(0.7-1.3)
Glucose 115 H mg/dl
(70-99)
AST 85 H U/L
(17-59)
Ammonia < 9 L umol/L
(9-30)
Creatine Kinase 43 L U/L
(55-170)
Ur Occult Blood Reflex 1+ A
(Negative)
Leukocyte Esterase Rfl 2+ A
(Negative)
Urine RBC 3-6 A /HPF
(0-2)
Urine Bacteria (Reflex) Moderate A
(Negative)
Urine Yeast Few A
(Negative)
03/20/24 21:13
03/20/24 21:13
Vital Signs
Initial and Last Documented VS:
Initial Vital Signs
Temp Pulse Resp BP Pulse Ox
36.4 C 98 19 116/67 97
03/20/24 19:47 03/20/24 19:47 03/20/24 19:47 03/20/24 19:47 03/20/24 19:47
Last Documented Vital Signs
Temp Pulse Resp BP Pulse Ox
36.4 C 84 16 131/80 97
03/21/24 02:20 03/21/24 02:20 03/21/24 02:20 03/21/24 02:20 03/21/24 02:20
*Critical Care Note
Total Time (30-74mins, 75-104mins- exclusive of procedures): Not Applicable
Update Note
Update Note:
UPDATE (Christ Rodriguez MD)
I have seen and evaluated the patient after signout and reviewed all labs and imaging.
Focused HPI: 74-year-old male with history as documented presented with generalized weakness. He lives at home with his whom he says requires significant assistance. He says that she called the ambulance tonight because she was afraid he was
going to fall and she cannot help him if he falls. He says he has been feeling very weak for the past few days. He is currently being treated for UTI.
Physical exam: Awake and alert not in distress. Vital signs normal. Abdomen soft, nontender, urostomy in place with clear urine.
Medical Decision Makin-year-old male presenting with generalized weakness for the past few days. Labs sent off including a CBC and a CMP notable for MICHELLE with a creatinine of 1.8 doubled from his baseline and significant elevated BUN�concern
for acute dehydration. He also has a mild metabolic acidosis. Possible starvation ketosis in the setting of poor appetite. His lactate was normal. His urinalysis was essentially equivocal. He is apparently already on antibiotics. He was sent
for a CT head and a chest x-ray which showed no acute pathology. Suspect that this is multifactorial likely UTI contributing as well as dehydration and poor p.o. intake. He was given IV fluids he says he does not feel much better. Not steady on
his feet and currently lives with his essentially alone without assistance. Will plan admit for continued hydration, monitoring of clinical status, PT evaluation. Discussed case with hospitalist.
ED Attending Note
-
Portions of this chart may have been created with voice recognition software.� Occasional wrong word or��sound alike� substitutions may have occurred due to the inherent limitations of voice recognition software.
Discharge Plan
Departure
Patient Disposition: Admit
Date of Disposition: 03/21/24
Time of Disposition: 00:23
Admit to doctor: Ori
Presentation/result/management discussed w/ accepting MD/DO: Hospitalist
Discharge Problem:
Acute dehydration, MICHELLE (acute kidney injury)
Interventions
Interventions:
*Risk Screen - Suicide Last Done: 03/20/24 19:47
*General Assessment Last Done: 03/20/24 19:58
*Neglect/Abuse Screening Last Done: 03/20/24 19:47
ED- Fall Risk Assessment Last Done: 03/20/24 19:58
*ED COVID-19 Vaccine History Last Done: 03/20/24 19:58
*Nursing Disposition Last Done: 03/21/24 02:11
ED- Cardiac Assessment Last Done: 03/20/24 19:58
ED- Neurological Assessment Last Done: 03/20/24 19:58
ED- Pulmonary Assessment Last Done: 03/20/24 19:58
Discharge Date and Time
Discharge Date/Time: 03/21/24 02:12
--- NOTE | 2024-03-21 00:42 | HPS.HSE ---
Family Physician
-
Family Physician: Black Graham
Chief Complaint
-
Generalized weakness
History of Present Illness
This is a 74-year-old history of bladder cancer status post bladder resection with with ileal conduit, [id number] diabetes, seizure disorder presenting to the emergency department with generalized weakness.
Patient is a fairly poor historian and cannot give me exact details. He reports that he has been generally weak ever since his surgery but they said decided to send him to the hospital because she was concerned about worsening weakness. He
reports that he is so weak he is unable to get himself up when he lays down. He tells me that he has been on antibiotics for about a week now but is unsure exactly which. He says a goes on and off antibiotics and a change often. He states he has
not been eating lately due to loss of appetite. He denies any nausea or vomiting. He denies having any diarrhea. He denies any change in the color or quantity of urine output. He tells me that he had fevers at home but he clearly can explain
what that means. When I asked him about the fevers he says yes his sons have been coming to help with the fevers. When asked in what they do he cannot specify. He appears to be slightly encephalopathic compared to his baseline. He denies any
other medication changes.
In the ED he was afebrile with a temp of nine 7.8 blood pressure was 129/67 with a pulse of 88. Was satting 98% on room air. CBC was unremarkable white count of 10.7, hemoglobin of 11.8 and platelet of 226. His labs are notable for elevated BUN
of 45, creatinine 1.8 and a bicarb of 17 with a potassium of 5.1. AST slightly elevated, UA is positive with leukocyte esterase occasional 8 WBCs and few bacteria. COVID test is negative. Flu test negative.
Chest x-ray shows no acute infiltrates. CT of the head shows no acute intracranial process.
Medical History
Past Medical History
Past Medical History: Reports Cancer (Bladder cancer status post surgery), HTN, Hypercholesterolemia, NIDDM and Seizures
Past Surgical History: Reports Urological (Bladder resection with ileal conduit)
Social History
Tobacco: Former Smoker
Alcohol: None
Drug: None
Personal:
Living: With Family
Employment: Retired
Family History
Family History: Not pertinent
Allergies / Home Medications
Allergies reflects when Allergies were last updated in [facility].
Home Medications with original date entered in [facility]
Allergy/Medication List:
Allergies
Allergy/AdvReac Type Severity Reaction Status Date / Time
Penicillins Allergy Hives Verified 03/21/24 00:11
Home Medications
bupropion HCl 150 mg 24 hr tablet, extended release 150 mg PO DAILY Depression 12/06/23
divalproex 125 mg tablet,delayed release 1,500 mg PO QPM Seizures 12/06/23
glimepiride 2 mg tablet 2 mg PO BID Diabetes 12/06/23
metformin 500 mg tablet 500 mg PO BID Diabetes 12/06/23
omega-3 fatty acids 1 cap PO DAILY 12/06/23
quetiapine 100 mg tablet 100 mg PO HS Sleep 12/06/23
rosuvastatin 10 mg tablet 10 mg PO DAILY High Cholesterol 12/06/23
Review of Systems
-
Constitutional: Reports Weight Loss and Fatigue
EENT: Reports No Symptoms
Respiratory: Reports No Symptoms
Cardiac: Reports No Symptoms
Abdomen/GI: Reports No Symptoms
: Reports No Symptoms
Musculoskeletal: Reports No Symptoms
Skin: Reports No Symptoms
Neurological: Reports Weakness
Endocrine: Reports No Symptoms
Hematologic/Lymphatic: Reports No Symptoms
Psych: Reports No Symptoms
Physical Exam
Vital Signs
Vital Signs
Temp Pulse Resp BP Pulse Ox
97.8 F 88 18 129/67 99
03/20/24 22:01 03/21/24 00:02 03/21/24 00:02 03/21/24 00:02 03/21/24 00:02
Physical Exam
General: No Apparent Distress and Poor Appetite
HEENT: NormoCephalic, Anicteric, Moist mucous membranes, Atraumatic and PERRLA
Respiratory: Clear
Cardiac: S1/S2 and Regular Rhythm
Breast: Deferred by me
GI: Soft, Non Tender, Non Distended and Ostomy (w/ clear urine output)
Rectal: Deferred by Provider
Genito-urinary: Clear Urine
Musculoskeletal: No Clubbing, No Cyanosis and No Edema
Skin: Warm
Neuro: Alert, Oriented (oriented to person and place but not year) and Nonfocal/grossly intact
Hematologic/Lymphatic: No Lymphadenopathy
Psych: Calm
Laboratory Results
-
03/20/24 21:13
03/20/24 21:13
Laboratory Results
Lactic Acid 1.9 mmol/L (0.7-2.0) 03/20/24 22:50
Total Bilirubin 0.5 mg/dl (0.2-1.3) 03/20/24 21:13
AST 85 U/L (17-59) H 03/20/24 21:13
ALT 34 U/L (0-50) 03/20/24 21:13
Alkaline Phosphatase 107 U/L (38-126) 03/20/24 21:13
Data Reviewed
-
Diagnostic Radiology: Image Personally Visualized and interpreted and Report Reviewed by me
Lab Data: Labs Reviewed by me
Old Records: Reviewed
Impression/Plan
-
IMPRESSION:
74 y.o w/ history of bladder ca coming in with weakness. Has been on oral antibiotics for few days for UTI. Reports loss of appetite and has not been eating for about 2 days. Denies any abdominal discomfort or pain. No flank pain. Question of
fevers at home. HD stable and afebrile here but found to be weak with new MICHELLE Cr 1.8 from 0.9 and a metabolic acidosis.
PLAN:
1. MICHELLE - BUN/Cr > 2.0 suggestive of prerenal. Lactic acid is normal. HD is normal. Unlikely ATN. No h/o obstruction. Isolated AST elevation.
- admit to med/surg
- pre-renal azotemia, continue IV 1/2 NS + b75 meq of bicarb given acidosis and ileal conduit
- check cpk
- abdominal u/s to eval hydro
- orthostatics in am
- nephrology consult if no improvement with fluids
2. Weakness and AMS - Denies any seizure activity, ammonia level normal. ?UTI and dehydration
- blood and urine cultures sent
- External records indicate he has been on levaquin, IV aztreonam for now pending cultures
- IV fluids w/ bicarb as above
- PT eval
3. Seizure d/o -
- continue valprex qpm, ammonia levels normal, slight AST elevation, no seizure, checking cpk
- quetiapine 100mg po hs
- hold rosuvastatin
3. DM II
- hold metformin
- continue glimepiride
- sliding scale insulin
DVT PPX - heparin sq
Code status - full code
[2024-03-21] MEDS: STERILE WATER FOR INJECTION 10 ML IV ×3 (01:49→17:47)
[2024-03-21] MEDS: AZACTAM 2000 MG IV ×3 (01:50→17:47)
[2024-03-21] MEDS: SODIUM BICARBONATE 1075 MEQ IV ×3 (02:03→16:15)
[2024-03-21 02:37] LABS: Creatine Phosphokinase 43 U/L (55-170)
--- NOTE | 2024-03-21 03:46 | PTCARENOTE ---
Received patient from ER. stable vitals. AAOx3, very forgetful, poor historian, no family members with patient at this time. Bed alarm in place for safety. No complaints. POC reviewed with patient
[2024-03-21] MEDS: AMARYL 2 MG PO ×2 (09:07→17:47)
[2024-03-21] MEDS: WELLBUTRIN XL (24 hour extended release) 150 MG PO (09:07)
[2024-03-21] MEDS: HEPARIN 5000 UNITS SC ×3 (09:07→23:34)
[2024-03-21 09:52] LABS: Hematocrit 32.5 % (39.0-52.0); Hemoglobin 10.6 g/dL (13.0-18.0); Mean Corp Hgb Conc. 32.6 g/dL (33.0-37.0); Mean Platelet Volume 9.8 fL (7.4-10.4); Platelet Count 242 10^3/uL (130-400); Red Blood Cell Count 3.65 10^6/uL (4.70-6.10); Red Cell Dist. Width 17.2 % (11.5-14.5); White Blood Cell Count 9.9 10^3/uL (4.8-10.8)
[2024-03-21 10:08] LABS: Blood Urea Nitrogen 39 mg/dl (9-20); Calcium 8.8 mg/dl (8.4-10.2); Carbon Dioxide 22 mmol/L (22-30); Chloride 106 mmol/L (98-107); Creatine Phosphokinase 62 U/L (55-170); Estimated Creatinine Clearance 41 ml/min; Glucose 75 mg/dl (70-99); Potassium 4.6 mmol/L (3.5-5.1); Sodium 138 mmol/L (135-145); eGFR 52.09
[2024-03-21 10:39] LABS: TSH 2.55 uIU/ml (0.47-4.68)
--- NOTE | 2024-03-21 14:11 | W.PN.HOSP.TC ---
Today's Communication/Plan
-
PT/OT
cont IVF
follow labs/cultures
Assessment / Plan
Assessment / Plan
pt is a 74 year old male
MICHELLE--possibly due to poor appetite and poor oral intake, Lactic acid is normal--cont IVF--creat from 1.8 to 1.4--cpk wnl
Weakness and AMS - Denies any seizure activity, ammonia level normal. ?UTI and dehydration --cultures pending--cont azactam for now--PT/OT
Seizure d/o-- none recently-- continue Valproic acid, ammonia levels normal, slight AST elevation, no seizure--quetiapine 100mg po hs- hold rosuvastatin
DM II -- hold metformin-- continue glimepiride-- sliding scale insulin
DVT proph
Code status - full code
Anticipated Discharge: 24 - 48 hours
Subjective/Interval History
-
Date of Service: March 21, 2024
pt without c/o
Objective Data
-
Labs:
Laboratory Results
03/21/24
09:06
WBC 9.9
Hgb 10.6 L
Hct 32.5 L
Plt Count 242
Sodium 138
Potassium 4.6
Chloride 106
Carbon Dioxide 22
BUN 39 H
Creatinine 1.4 H
Glucose 75
Calcium 8.8
Vital Signs:
max temp for 24 hours
03/21/24
07:28
Temp 97.8 F
Vital Signs
Temp Pulse Resp BP Pulse Ox
97.8 F 85 14 149/82 98
03/21/24 07:28 03/21/24 07:28 03/21/24 07:28 03/21/24 07:28 03/21/24 07:28
I&O
03/20/24 03/21/24 03/22/24
06:59 06:59 06:59
Output Total 400 / 400
Balance -400 / -400
Review of Systems
-
All other systems: Reviewed and negative
Physical Exam
-
General: Well Developed, Well Nourished and No Apparent Distress
HEENT: Normocephalic and Atraumatic; Negative Oxygen
Respiratory: Clear to Auscultation; Negative Wheezes or Rhonchi
Cardiac: Regular Rhythm and S1/S2; Negative Murmur
GI: Soft, Nontender, Nondistended and Normal Bowel Sounds
Musculoskeletal: No Clubbing, No Cyanosis and No Edema
Skin: Warm
Neuro: Awake and Alert
Psych: Calm
--- NOTE | 2024-03-21 17:10 | CM ---
Alert awake oriented patient who lives with his Hermila who lives in a 2 story home with 4 step to enter and 14 steps to bed and bathroom. He is independent in driving and in all activities of daily living.He was offered VN he declined need he
requested [facility]ses [facility].
Hx of [facility] and [place]
Pharmacy [facility]
PCP DR Graham
PLAN Home with [facility]
[2024-03-21] MEDS: DEPAKOTE (12 HR RELEASE) 1500 MG PO (17:48)
[2024-03-21] MEDS: SEROQUEL 100 MG PO (23:34)
[2024-03-21] MEDS: TYLENOL 650 MG PO (23:38)
[2024-03-22] MEDS: SODIUM BICARBONATE 1075 MEQ IV (01:14)
[2024-03-22] MEDS: STERILE WATER FOR INJECTION 10 ML IV ×3 (01:16→17:18)
[2024-03-22] MEDS: AZACTAM 2000 MG IV ×3 (01:17→17:20)
[2024-03-22 07:28] LABS: Hematocrit 30.3 % (39.0-52.0); Hemoglobin 9.9 g/dL (13.0-18.0); Mean Corp Hgb Conc. 32.7 g/dL (33.0-37.0); Mean Corpuscular Hgb 28.6 pg (27.0-31.0); Mean Corpuscular Volume 87.6 fL (80.0-94.0); Mean Platelet Volume 10.2 fL (7.4-10.4); Platelet Count 238 10^3/uL (130-400); Red Blood Cell Count 3.46 10^6/uL (4.70-6.10); Red Cell Dist. Width 17.2 % (11.5-14.5); White Blood Cell Count 7.1 10^3/uL (4.8-10.8)
[2024-03-22 07:54] VITALS: BP 151/71
[2024-03-22 08:08] LABS: Blood Urea Nitrogen 28 mg/dl (9-20); Calcium 8.4 mg/dl (8.4-10.2); Carbon Dioxide 26 mmol/L (22-30); Chloride 105 mmol/L (98-107); Estimated Creatinine Clearance 52 ml/min; Glucose 94 mg/dl (70-99); Magnesium 1.7 mg/dl (1.6-2.3); Sodium 139 mmol/L (135-145); eGFR > 60.00
[2024-03-22] MEDS: WELLBUTRIN XL (24 hour extended release) 150 MG PO (09:16)
[2024-03-22] MEDS: AMARYL 2 MG PO ×2 (09:16→17:17)
[2024-03-22] MEDS: HEPARIN 5000 UNITS SC ×2 (09:17→17:17)
--- NOTE | 2024-03-22 10:52 | W.PN.HOSP.TC ---
Today's Communication/Plan
-
CM for SNF?
Assessment / Plan
Assessment / Plan
pt is a 74 year old male
MICHELLE--possibly due to poor appetite and poor oral intake, Lactic acid is normal--cont IVF--creat from 1.8 to 1.4 to 1.1 --resolved---cpk wnl
Weakness - Denies any seizure activity, ammonia level normal. ?UTI and dehydration --cultures pending--cont azactam for now--PT/OT rec SNF--pt not opposed
Seizure d/o-- none recently-- continue Valproic acid, ammonia levels normal, slight AST elevation, no seizure--quetiapine 100mg po hs- hold rosuvastatin
DM II -- restart metformin-- continue glimepiride-- sliding scale insulin
DVT proph
Code status - full code
Anticipated Discharge: 24 - 48 hours
Subjective/Interval History
-
Date of Service: March 22, 2024
pt asking about results of tests that I just told him about--? cognitive issues, ?dementia
Objective Data
-
Labs:
Laboratory Results
03/22/24
06:34
WBC 7.1
Hgb 9.9 L
Hct 30.3 L
Plt Count 238
Sodium 139
Potassium 4.0
Chloride 105
Carbon Dioxide 26
BUN 28 H
Creatinine 1.1
Glucose 94
Calcium 8.4
Vital Signs:
max temp for 24 hours
03/21/24
23:46
Temp 98.7 F
Vital Signs
Temp Pulse Resp BP Pulse Ox
97.8 F 83 14 151/71 96
03/22/24 07:54 03/22/24 07:54 03/22/24 07:54 03/22/24 07:54 03/22/24 07:54
I&O
03/21/24 03/22/24 03/23/24
06:59 06:59 06:59
Intake Total 2039
Output Total 400 / 400 1949
Balance -400 / -400 /
Review of Systems
-
All other systems: Reviewed and negative
Physical Exam
-
General: Well Developed, Well Nourished and No Apparent Distress
HEENT: Normocephalic and Atraumatic
Respiratory: Clear to Auscultation; Negative Wheezes or Rhonchi
Cardiac: Regular Rhythm and S1/S2; Negative Murmur
GI: Soft, Nontender, Nondistended and Normal Bowel Sounds
Genito-urinary: Other (ileostomy/conduit)
Musculoskeletal: No Clubbing, No Cyanosis and No Edema
Neuro: Awake
[2024-03-22 15:26] VITALS: BP 146/76
[2024-03-22] MEDS: DEPAKOTE (12 HR RELEASE) 1500 MG PO (17:17)
[2024-03-22] MEDS: GLUCOPHAGE 500 MG PO (17:20)
[2024-03-22 19:35] VITALS: BP 155/94; BP 158/79; BP 163/87; PULSE 107; PULSE 97; PULSE 98
[2024-03-22] MEDS: SEROQUEL 100 MG PO (22:00)
[2024-03-22 23:04] VITALS: BP 154/77
[2024-03-23] MEDS: HEPARIN 5000 UNITS SC ×4 (01:12→23:24)
[2024-03-23] MEDS: STERILE WATER FOR INJECTION 10 ML IV ×2 (01:13→11:00)
[2024-03-23] MEDS: AZACTAM 2000 MG IV ×2 (01:13→10:59)
[2024-03-23 07:10] VITALS: BP 154/86
[2024-03-23 07:15] VITALS: BP 145/77; BP 154/86; BP 162/83; PULSE 80; PULSE 83; PULSE 88
[2024-03-23] MEDS: WELLBUTRIN XL (24 hour extended release) 150 MG PO (07:51)
[2024-03-23] MEDS: GLUCOPHAGE 500 MG PO ×2 (07:51→16:06)
[2024-03-23] MEDS: AMARYL 2 MG PO ×2 (07:51→16:06)
[2024-03-23 09:05] LABS: Hematocrit 32.1 % (39.0-52.0); Hemoglobin 10.5 g/dL (13.0-18.0); Mean Corp Hgb Conc. 32.7 g/dL (33.0-37.0); Mean Corpuscular Hgb 28.8 pg (27.0-31.0); Mean Corpuscular Volume 88.2 fL (80.0-94.0); Mean Platelet Volume 10.4 fL (7.4-10.4); Platelet Count 297 10^3/uL (130-400); Red Blood Cell Count 3.64 10^6/uL (4.70-6.10); Red Cell Dist. Width 16.9 % (11.5-14.5); White Blood Cell Count 8.9 10^3/uL (4.8-10.8)
[2024-03-23 09:28] LABS: Blood Urea Nitrogen 26 mg/dl (9-20); Calcium 9.2 mg/dl (8.4-10.2); Carbon Dioxide 23 mmol/L (22-30); Chloride 106 mmol/L (98-107); Estimated Creatinine Clearance 57 ml/min; Glucose 99 mg/dl (70-99); Magnesium 1.9 mg/dl (1.6-2.3); Potassium 4.3 mmol/L (3.5-5.1); Sodium 140 mmol/L (135-145); eGFR > 60.00
--- NOTE | 2024-03-23 11:59 | VNURNOTE ---
Home Health Liaison met with patient to discuss [facility] nurse/therapy, visits, schedule and homebound status. Patient is agreeable and understands that visits at home will be 2-3 x per week to assess and teach medical management.
[facility] brochure provided with contact information. Patient is aware that [facility] will contact them for start of care in 1-2 days after discharge from .
[facility] referral accepted in [facility].
--- NOTE | 2024-03-23 12:11 | CM ---
Patient daughter arrived and now is stating that patient can't go home as he has 2 flights of steps and his has Alzheimer's. Family did not have a plan for patient and son who is POA is on vacation. Daughter requested pt/ot to re assess
patient and CM provided a place for mom information. CM will continue to follow for discharge planning needs.
Plan; reassess for therapy recommendation and work with family for safe discharge
[2024-03-23 12:50] VITALS: BP 137/87; BP 142/75; PULSE 90; O2SAT 97
--- NOTE | 2024-03-23 13:50 | W.DCSUMMARY ---
Documented by User: Alexandria Garcia MD, Resident 03/24/24 15:46
Discharge Summary
Discharge Data
Date of Admission: 03/21/24
Date of Discharge: 03/24/24
-
Pending Results: No
Hospital Course
Discharging Physician : Dr. Bernice Luna, Dr. Alexandria Anderson
Disposition : SNF
Principal Discharge diagnosis : Acute kidney injury, mild right-sided hydronephrosis
Chronic Discharge diagnosis : Hx of bladder cancer s/p resection with ileal conduit, diabetes, seizure, mild cognitive impairment
Hospital Course : 75 y/o male with pmhx of bladder cancer s/p resection with ileal conduit presented to the ED with generalized weakness, decreased appetite and change in mental status. On initial workup, patient was hemodynamically stable, not
septic. Had elevated Cr (1.8), BUN 45 and low bicarb (17). With the impression of prerenal azotemia likely due to poor oral intake, patient was started on IV fluids with bicarb. U/A was positive for leukocyte esterase and WBC 8. Started on
Aztreonam. Renal US showed mild right hydronephrosis. Head CT was negative for acute pathologies. Blood culture neg. COVID neg. Flu neg. CPK, lactic acid, ammonia normal. Urine culture revealed mixed debbie, possible contamination and antibiotic was
discontinued. Patient's symptoms markedly improved and he was back to baseline with Cr 1.0.
Patient is medically stable for discharge with no change in home meds. Patient's family want discharge to a care home.
Important imaging findings :
Renal ultrasound: Mild right hydronephrosis, multiple bilateral renal cysts measuring up to 3.5 cm.
Discharge Plan
-
Patient Disposition: Custodial/SNF
Discharge Diagnosis/Procedures: acute kidney injury (resolved), mild right-sided hydronephrosis, history of bladder cancer s/p resection with ileal conduit, diabetes, seizure, mild cognitive impairment
Condition: Fair
Diet: Diabetic, Carb Controlled
Activity: As tolerated
Driving Restrictions: As prior to admission
Bathing Restrictions: OK to Shower
Referrals:
Black Graham, [Family Provider] - in less than 1 week
Prescriptions:
Continued
metformin 500 mg Tablet
500 mg PO BID
divalproex 125 mg Tablet,Delayed Release (Dr/Ec)
1,500 mg PO QPM
quetiapine 100 mg Tablet
100 mg PO HS
glimepiride 2 mg Tablet
2 mg PO BID
omega-3 fatty acids Capsule
1 cap PO DAILY
rosuvastatin 10 mg Tablet
10 mg PO DAILY
bupropion HCl 150 mg Tablet Extended Release 24 Hr
150 mg PO DAILY
Discharge Orders:
Discharge Patient (As Directed); Ordered 03/24/24
Ordered By: Alexandria Garcia
Discharge Date and Time
Discharge Date/Time: 03/24/24 13:49
Print Language: ETHIOPIAN

Documented by User: Bernice Luna MD 03/25/24 07:57
Discharge Summary
Discharge Data
Date of Admission: 03/21/24
Date of Discharge: 03/24/24
Hospital Course
Discharging Physician : Dr. Bernice Luna, Dr. Alexandria Anderson
Disposition : SNF
Principal Discharge diagnosis : Acute kidney injury (resolved), mild right-sided hydronephrosis
Chronic Discharge diagnosis : Hx of bladder cancer s/p resection with ileal conduit, diabetes, seizure, mild cognitive impairment
Hospital Course : 75 y/o male with pmhx of bladder cancer s/p resection with ileal conduit presented to the ED with generalized weakness, decreased appetite and change in mental status. On initial workup, patient was hemodynamically stable, not
septic. Had elevated Cr (1.8) likley due to prerenal azotemia from poor oral intake. Patient was started on IV fluids with bicarb. U/A was positive for leukocyte esterase and WBC 8. Started on Aztreonam. Renal US showed mild right hydronephrosis.
Urine culture revealed mixed debbie, possible contamination and antibiotic was discontinued. Patient's symptoms markedly improved and he was back to baseline with Cr 1.0.
Patient is medically stable for discharge with no change in home meds. Patient's family wanted discharge to a care home.
Important imaging findings :
Renal ultrasound: Mild right hydronephrosis, multiple bilateral renal cysts measuring up to 3.5 cm.
Discharge Plan
-
Patient Disposition: Custodial/SNF
Discharge Diagnosis/Procedures: acute kidney injury (resolved), mild right-sided hydronephrosis, history of bladder cancer s/p resection with ileal conduit, diabetes, seizure, mild cognitive impairment
Condition: Fair
Diet: Diabetic, Carb Controlled
Activity: As tolerated
Driving Restrictions: As prior to admission
Bathing Restrictions: OK to Shower
Referrals:
Black Graham DO [Family Provider] - in less than 1 week
Prescriptions:
Continued
metformin 500 mg Tablet
500 mg PO BID
divalproex 125 mg Tablet,Delayed Release (Dr/Ec)
1,500 mg PO QPM
quetiapine 100 mg Tablet
100 mg PO HS
glimepiride 2 mg Tablet
2 mg PO BID
omega-3 fatty acids Capsule
1 cap PO DAILY
rosuvastatin 10 mg Tablet
10 mg PO DAILY
bupropion HCl 150 mg Tablet Extended Release 24 Hr
150 mg PO DAILY
Discharge Orders:
Discharge Patient (As Directed); Ordered 03/24/24
Ordered By: Alexandria Garcia
Discharge Date and Time
Discharge Date/Time: 03/24/24 13:49
Print Language: ETHIOPIAN
--- NOTE | 2024-03-23 13:53 | W.PN.HOSP.TC ---
Addendum entered and electronically signed by Alexandria aGrcia MD, Resident 03/24/24 18:03:
- Ultrasound finding of mild right hydronephrosis is a valid diagnosis.
Addendum entered and electronically signed by Marilee Hernandez MD 03/23/24 16:35:
I saw and evaluated the patient independently. I reviewed the resident�s note and agree with findings and plan as documented by Dr. Anderson.
GENERAL: well developed, well nourished, male in no apparent distress
HEENT: NC/AT--no O2 requirements
HEART: regular rate and rhythm, +S1, +S2
LUNGS : clear to auscultation bilaterally
ABDOM: soft, nontender, nondistended, + bowel sounds
EXT: no cyanosis, clubbing, or edema
NEUROLOGIC: apparent dementia (or at least cognitive issues)
MICHELLE--possibly due to poor appetite and poor oral intake, Lactic acid is normal--stop IVF--creat from 1.8 to 1.4 to 1.1 --resolved---cpk wnl--mild right hydronephrosis has no bearing as pt with ileostomy
Weakness - Denies any seizure activity, ammonia level normal. ?UTI and dehydration --urine culture mixed debbie c/w contamination --stop azactam
Seizure d/o-- none recently-- continue Valproic acid, ammonia levels normal, slight AST elevation, no seizure--quetiapine 100mg po hs- hold rosuvastatin
DM II -- restart metformin-- continue glimepiride-- sliding scale insulin
DVT proph
Code status - full code
d/c to SNF when bed available
medically stable for d/c
Original Note:
Today's Communication/Plan
-
Urine culture contamination -- dc abx
Patient medically stable -- Discharge planning
Assessment / Plan
Assessment / Plan
74 year old male with:
#MICHELLE--possibly due to poor appetite and poor oral intake--lactate, cpk wnl--cont IVF--creat from 1.8 to 1.0--resolved
#Weakness--Denies any seizure activity, ammonia level normal. ?UTI and dehydration--blood culture neg, urine culture contamination--will dc aztreonam--discharge planning
#Hx of seizure--continue Valproic acid, ammonia levels normal, slight AST elevation, no seizure--quetiapine 100mg po hs
#DM--restart metformin--continue glimepiride--sliding scale insulin
DVT prophylaxis - Heparin
Code status - full code
Anticipated Discharge: Today
Subjective/Interval History
-
Date of Service: March 23, 2024
Objective Data
-
Labs:
Laboratory Results
03/23/24
08:17
WBC 8.9
Hgb 10.5 L
Hct 32.1 L
Plt Count 297 D
Sodium 140
Potassium 4.3
Chloride 106
Carbon Dioxide 23
BUN 26 H
Creatinine 1.0
Glucose 99
Calcium 9.2
Vital Signs:
Vital Signs
Temp Pulse Resp BP Pulse Ox
97.7 F 80 16 154/86 97
03/23/24 07:10 03/23/24 07:10 03/23/24 07:10 03/23/24 07:10 03/23/24 07:10
I&O
03/22/24 03/23/24 03/24/24
06:59 06:59 06:59
Intake Total 2039 480 / 480
Output Total 1949 2425 / 2425 625 / 625
Balance 90 / 90 -2425 / -2425 -145 / -145
Review of Systems
-
History Source: Patient
Constitutional: Reports No Symptoms
EENT: Reports No Symptoms Reported
Respiratory: Reports No Symptoms
Cardiac: Reports No Symptoms
Abdomen/GI: Reports No Symptoms
Breast: Reports No Symptoms
Genitourinary: Reports No Symptoms
Musculoskeletal: Reports No Symptoms
Skin: Reports No Symptoms
Neuro: Reports No Symptoms
Endocrine: Reports No Symptoms
Hematologic / Lymphatic: Reports No Symptoms
Allergy / Immunology: Reports No Symptoms
Physical Exam
-
General: Well Developed, Well Nourished, No Apparent Distress and Comfortable
HEENT: Normocephalic
Respiratory: Clear to Auscultation
Cardiac: Regular Rhythm and S1/S2
GI: Soft, Nontender and Nondistended
Genito-urinary: No Costovertebral Tender and Other (urostomy)
Musculoskeletal: No Clubbing, No Cyanosis and No Edema
Skin: Warm and Dry
Neuro: Awake, Alert and Oriented
Hematologic / Lymphatic: No Lymphadenopathy
Psych: Calm
--- NOTE | 2024-03-23 14:48 | PN.CDI ---
CDI
- -
CDI:
Physician Documentation Request
Admit Date: 03/21/24 01:10
Dear Doctor Monica,
Clinical Indicators:
The diagnosis of mild right hydronephrosis was included in the signed US of renal with bladder 03/21
Please indicate in your progress notes if you are in agreement that the above diagnosis is valid for this patient:
____ - mild right hydronephrosis is a valid diagnosis (Please include it in your progress notes)
____ - mild right hydronephrosis is not a valid diagnosis for this patient
____ - Other
Use of terms such as suspected, likely, concern for, or probable are acceptable for a diagnosis that is being evaluated, monitored or treated as if it exists and can be coded in the inpatient setting, when documented at the time of discharge.
Thank you,
Neha Vila RN, BSN
CDI Specialist
tiger text
Please use your independent medical judgment in providing your response.
--- NOTE | 2024-03-23 15:26 | CM ---
Patient daughter came to say that patient lives with his in a 2 story home. has Alzheimers and they are unsafe in the home. Patient POA and son is away on vacation and patient daughter states no plan was made for home supports previous to
patient admission. patient daughter indicated that she wants patient placed. CM offered information on a place for mom and PT/OT reassessed patient to confirm appropriateness of the SNF level. CM will continue to follow for discharge planning needs.
Plan; SNF due to patient family update
[2024-03-23 15:36] VITALS: BP 161/83
[2024-03-23] MEDS: STERILE WATER FOR INJECTION IV (17:01)
[2024-03-23] MEDS: DEPAKOTE (12 HR RELEASE) 1500 MG PO (17:06)
[2024-03-23] MEDS: SEROQUEL 100 MG PO (21:27)
[2024-03-23 23:00] VITALS: BP 147/72
[2024-03-24 07:28] LABS: Hematocrit 33.5 % (39.0-52.0); Hemoglobin 10.9 g/dL (13.0-18.0); Mean Corp Hgb Conc. 32.5 g/dL (33.0-37.0); Mean Corpuscular Hgb 28.4 pg (27.0-31.0); Mean Corpuscular Volume 87.2 fL (80.0-94.0); Mean Platelet Volume 9.7 fL (7.4-10.4); Platelet Count 307 10^3/uL (130-400); Red Blood Cell Count 3.84 10^6/uL (4.70-6.10); Red Cell Dist. Width 16.5 % (11.5-14.5); White Blood Cell Count 9.2 10^3/uL (4.8-10.8)
[2024-03-24 07:36] VITALS: BP 158/80
[2024-03-24 07:37] VITALS: BP 158/79; BP 158/80; BP 175/79; PULSE 77; PULSE 83; PULSE 85
[2024-03-24 07:52] LABS: Blood Urea Nitrogen 25 mg/dl (9-20); Carbon Dioxide 25 mmol/L (22-30); Chloride 107 mmol/L (98-107); Estimated Creatinine Clearance 57 ml/min; Glucose 99 mg/dl (70-99); Potassium 4.4 mmol/L (3.5-5.1); Sodium 140 mmol/L (135-145); eGFR > 60.00
[2024-03-24] MEDS: HEPARIN 5000 UNITS SC (08:22)
[2024-03-24] MEDS: GLUCOPHAGE 500 MG PO (08:22)
[2024-03-24] MEDS: AMARYL 2 MG PO (08:22)
[2024-03-24] MEDS: WELLBUTRIN XL (24 hour extended release) 150 MG PO (08:22)
--- NOTE | 2024-03-24 09:28 | CM ---
Addendum entered by Hien Thacker RN 03/24/24 12:22:
[facility]
Report
[phone]
fax
[phone]
Addendum entered by Hien Thacker RN 03/24/24 11:59:
CM updated daughter Price. Price is happy with discharge plan and thankful for CM efforts. CM updated Demian Gavin with discharge time.
Addendum entered by Hien Thacker RN 03/24/24 11:31:
[facility] authorization for [facility]:
[id number]
NRD 03/30
Level 1
Review goes to:
[phone]
Acute Care Auth:
[id number]
PLAN: Discharge to [facility]
Original Note:
CM was updated that patient is medically ready for discharge. CM spoke with patient's son Shana who confirmed that [facility] is their first choice. CM sent referral via [facility].
Patient's daughter is also agreeable to placement
Price [phone]
CM will await acceptance.
--- NOTE | 2024-03-24 11:42 | W.PN.HOSP.TC ---
Addendum entered and electronically signed by Bernice Luna MD 03/25/24 07:58:
total DC time 38 min
Addendum entered and electronically signed by Bernice Luna MD 03/24/24 13:09:
I personally performed a history and physical exam of the patient and discussed management with the resident. I reviewed the resident's note and agree with the documented findings and plan of care HPI/CC.
A/P:
# MICHELLE, resolved
off IVF
creat from 1.8 to 1.0 today
mild right hydronephrosis has no bearing as pt with ileostomy
# Weakness
urine culture with mixed debbie c/w contamination, stopped Azactam
PT OT recc SNF
# Seizure d/o
none recently
continue Valproic acid, quetiapine HS, buspirone
hold rosuvastatin
# DM II
restarted metformin
continue glimepiride
sliding scale insulin
DVT proph
Code status - full code
Dispo: SNF
Original Note:
Today's Communication/Plan
-
Discharge to SNF
Assessment / Plan
Assessment / Plan
74 year old male with:
#MICHELLE--possibly due to poor appetite and poor oral intake--lactate, cpk wnl--cont IVF--creat from 1.8 to 1.0--resolved
#Weakness--Denies any seizure activity, ammonia level normal. ?UTI and dehydration--blood culture neg, urine culture contamination--dc'ed aztreonam--discharge planning
#Hx of seizure--continue Valproic acid, ammonia levels normal, slight AST elevation, no seizure--quetiapine 100mg po hs
#DM--restart metformin--continue glimepiride--sliding scale insulin
DVT prophylaxis - Heparin
Code status - full code
Patient is medically stable for discharge to SNF.
Anticipated Discharge: Today
Subjective/Interval History
-
Date of Service: March 24, 2024
Objective Data
-
Labs:
Laboratory Results
03/24/24
06:56
WBC 9.2
Hgb 10.9 L
Hct 33.5 L
Plt Count 307
Sodium 140
Potassium 4.4
Chloride 107
Carbon Dioxide 25
BUN 25 H
Creatinine 1.0
Glucose 99
Calcium 9.0
Vital Signs:
Vital Signs
Temp Pulse Resp BP Pulse Ox
97.6 F 77 18 158/80 96
03/24/24 07:36 03/24/24 07:36 03/24/24 07:36 03/24/24 07:36 03/24/24 07:36
I&O
03/23/24 03/24/24 03/25/24
06:59 06:59 06:59
Intake Total 1200 / 1200
Output Total 2425 / 2425 2650 / 2650
Balance -2425 / -2425 -1450 / -1450
Review of Systems
-
History Source: Patient
All other systems: Reviewed and negative
Physical Exam
-
General: Well Developed, Well Nourished, No Apparent Distress and Comfortable
HEENT: Normocephalic
Respiratory: Clear to Auscultation
Cardiac: Regular Rhythm and S1/S2
GI: Soft, Nontender, Nondistended and Ostomy
Genito-urinary: No Costovertebral Tender and Clear Urine
Musculoskeletal: No Clubbing, No Cyanosis and No Edema
Skin: Warm
Neuro: Awake, Alert and Oriented
Hematologic / Lymphatic: No Lymphadenopathy
Psych: Calm
[2024-03-24 12:28] VITALS: BP 147/81
== END 2024-03-24 13:49 | DRG 683 ==
LOC: 1 ACUTE 01:10
PROVIDERS: Internal Medicine; ADMITTING PHYSICIAN Internal Medicine; ATTENDING PHYSICIAN Internal Medicine; EMERGENCY PHYSICIAN Emergency Medicine; FAMILY PHYSICIAN Internal Medicine
DX: N17.9 Acute kidney failure, unspecified (principal); E87.20 Acidosis, unspecified; G40.909 Epilepsy, unspecified, not intractable, without status epilepticus; E11.9 Type 2 diabetes mellitus without complications; N13.30 Unspecified hydronephrosis; I10 Essential (primary) hypertension; F32.A Depression, unspecified; E78.00 Pure hypercholesterolemia, unspecified; Z87.891 Personal history of nicotine dependence; Z85.51 Personal history of malignant neoplasm of bladder; Z11.52 Encounter for screening for COVID-19; Z93.6 Other artificial openings of urinary tract status
CPT/HCPCS: 70450; 71046; 76770; 80048; 80053; 81003; 81015; 82140; 82550; 83605; 83735; 84443; 85025; 85027; 87040; 87086; 87502; 87811; 96361; 96374; 97116; 97162; 97166; 97530; 99285; J7030

== ENCOUNTER → 2024-03-30 13:51 | Outpatient (REF) | payer OTHER, SELFPAY ==
[2024-03-30 15:05] LABS: % Basophils 0.3 % (0-2); % Eosinophils 0.9 % (0-6); % Immature Granulocytes 1.5 % (0-0.5); % Lymphocytes 19.8 % (20.5-51.1); % Monocytes 6.6 % (1.7-9.3); % Neutrophils 70.9 % (42.2-75.2); Absolute Eosinophils 0.1 10^3/uL (0-0.7); Absolute Immature Granulocytes 0.2 10^3/uL (0-0.05); Absolute Lymphocytes 2.2 10^3/uL (1.2-3.4); Absolute Monocytes 0.7 10^3/uL (0.1-0.6); Absolute Neutrophils 7.9 10^3/uL (1.4-6.5); Hematocrit 35.9 % (39.0-52.0); Hemoglobin 11.3 g/dL (13.0-18.0); Mean Corp Hgb Conc. 31.5 g/dL (33.0-37.0); Mean Corpuscular Hgb 28.2 pg (27.0-31.0); Mean Corpuscular Volume 89.5 fL (80.0-94.0); Mean Platelet Volume 10.5 fL (7.4-10.4); Nucleated Red Blood Cells % 0 % (-); Platelet Count 378 10^3/uL (130-400); Red Blood Cell Count 4.01 10^6/uL (4.70-6.10); Red Cell Dist. Width 16.6 % (11.5-14.5); White Blood Cell Count 11.2 10^3/uL (4.8-10.8)
[2024-03-30 15:19] LABS: ALT (SGPT) 17 U/L (0-50); AST (SGOT) 28 U/L (17-59); Albumin 3.6 g/dl (3.5-5.0); Alkaline Phosphatase 88 U/L (38-126); Blood Urea Nitrogen 27 mg/dl (9-20); Calcium 9.4 mg/dl (8.4-10.2); Carbon Dioxide 23 mmol/L (22-30); Chloride 105 mmol/L (98-107); Glucose 96 mg/dl (70-99); Potassium 5.3 mmol/L (3.5-5.1); Sodium 138 mmol/L (135-145); Total Bilirubin 0.4 mg/dl (0.2-1.3); Total Protein 6.9 g/dl (6.3-8.2); eGFR > 60.00
== END ==
LOC: OLABP 13:51
PROVIDERS: ATTENDING PHYSICIAN Family Medicine
DX: N17.9 Acute kidney failure, unspecified (principal); E11.9 Type 2 diabetes mellitus without complications; G40.909 Epilepsy, unspecified, not intractable, without status epilepticus; E66.9 Obesity, unspecified; E78.5 Hyperlipidemia, unspecified; F31.9 Bipolar disorder, unspecified; Z85.51 Personal history of malignant neoplasm of bladder
CPT/HCPCS: 36415; 80053; 85025

== ENCOUNTER → 2024-05-06 12:08 | Outpatient (REF) | payer OTHER, SELFPAY | LOC: RAD 12:08 | PROVIDERS: ATTENDING PHYSICIAN Physician Assistant; FAMILY PHYSICIAN Internal Medicine | DX: C67.4 Malignant neoplasm of posterior wall of bladder (principal) | CPT/HCPCS: 71046 ==

== ENCOUNTER → 2024-05-13 09:29 | Outpatient (REF) | payer OTHER, SELFPAY | LOC: RAD 09:29 | PROVIDERS: ATTENDING PHYSICIAN Physician Assistant; FAMILY PHYSICIAN Internal Medicine | DX: C67.4 Malignant neoplasm of posterior wall of bladder (principal) | CPT/HCPCS: 74178; Q9967 ==

== ENCOUNTER 2024-09-02 18:11 | Inpatient (IN) | payer OTHER, SELFPAY ==
[2024-09-02 11:16] VITALS: BP 144/90
[2024-09-02 11:46] VITALS: BP 155/76
[2024-09-02 11:48] VITALS: BMI 23.6
[2024-09-02 12:43] LABS: Hematocrit 37.2 % (39.0-52.0); Hemoglobin 12.4 g/dL (13.0-18.0); Mean Corp Hgb Conc. 33.3 g/dL (33.0-37.0); Mean Corpuscular Volume 91.4 fL (80.0-94.0); Nucleated Red Blood Cells % 0 % (-); Platelet Count 270 10^3/uL (130-400); Red Cell Dist. Width 15.4 % (11.5-14.5)
[2024-09-02 13:04] LABS: ALT (SGPT) 19 U/L (0-50); AST (SGOT) 39 U/L (17-59); Albumin 4.2 g/dl (3.5-5.0); Alkaline Phosphatase 91 U/L (38-126); Blood Urea Nitrogen 50 mg/dl (9-20); Calcium 11.0 mg/dl (8.4-10.2); Carbon Dioxide 17 mmol/L (22-30); Chloride 110 mmol/L (98-107); Estimated Creatinine Clearance 30 ml/min; Glucose 119 mg/dl (70-99); Potassium 5.3 mmol/L (3.5-5.1); Sodium 139 mmol/L (135-145); Total Protein 8.9 g/dl (6.3-8.2); eGFR 36.11
--- NOTE | 2024-09-02 13:22 | ED.GENMED ---
History of Present Illness
General
Chief Complaint: Weakness
Exam Limitations: none
Time Seen by Provider: 09/02/24 12:37
Nursing documentation reviewed up to this point in time: agreed with
History of Present Illness
History of Present Illness:
74 yr old male presents to the ED for evaluation. Pt has hx of bladder cancer s/p resection with ileal confuit(06/2023), diabetes, seizure and mild cognitive impairment presents for weakness.
Pt is a poor historian.
I spoke to at home who is also a poor historian and reports patient could not get out of bed today.
Past History
Past History
ED Past Medical History: Other (Diverticulosis, depression, diabetes, bladder cancer, hypercholesterolemia)
ED Past Surgical History: Urological (Ileostomy, TURP, bladder tumor removed)
Phy Exam
General Physical Exam
General Presentation: no apparent distress
General age: appears stated age
General Skin: warm and dry
General Habitus: elderly
General Mental: alert
General Hydration: dry mucous membranes
Cardiovascular Exam
Cardiovascular Exam: regular rate/rhythm, no murmur and normal peripheral pulses
Pulmonary Exam
Pulmonary Exam: lungs clear and no respiratory distress
Gastrointestinal Exam
Gastrointestinal Exam: non tender and soft
Neurological Exam
Neurological Exam: alert
Musculoskeletal Exam
Musculoskeletal Exam: full ROM
Skin Exam
Skin Exam: normal color and warm/dry
Psychiatric Exam
Psychiatric Exam: normal mood/affect
Course
Orders/Labs/Results
Orders:
Orders
09/02/24 11:18
EKG [Electrocardiogram (*1)] Urgent
Reason for Study: Fatigue / Weakness
EKG- Treatment ONCE
09/02/24 12:24
CBC/With Diff [Complete Blood Count/With Diff] Urgent
CMP [Comprehensive Metabolic Panel] Urgent
Urinalysis Reflex To Culture Urgent
Date Specimen was Collected: 09/02/24
Time Specimen was Collected: 11:19
Urine Microscopic Reflex Cult Urgent
Urine Culture Urgent
KANDI Source: U
Specimen Description:
Date Specimen was Collected: 09/02/24
Time Specimen was Collected: 11:19
09/02/24 13:40
CT Abd/pel Without Iv Or Oral Urgent
Comment:
Reason For Exam: toro/uti worsening renal function
09/02/24 13:43
0.9% Sodium Chloride 500 ml [Nss] 500 ml IV BOLUS
Abnormal Lab Results
09/02/24
12:24
WBC 14.6 H 10^3/uL
(4.8-10.8)
RBC 4.07 L 10^6/uL
(4.70-6.10)
Hgb 12.4 L g/dL
(13.0-18.0)
Hct 37.2 L %
(39.0-52.0)
RDW 15.4 H %
(11.5-14.5)
MPV 11.3 H fL
(7.4-10.4)
Abs Immat Gran (auto) 0.1 H 10^3/uL
(0-0.05)
Absolute Neuts (auto) 11.2 H 10^3/uL
(1.4-6.5)
Absolute Monos (auto) 1.4 H 10^3/uL
(0.1-0.6)
Neutrophils % 76.7 H %
(42.2-75.2)
Lymphocytes % 11.9 L %
(20.5-51.1)
Monocytes % 9.8 H %
(1.7-9.3)
Potassium 5.3 H mmol/L
(3.5-5.1)
Chloride 110 H mmol/L
(98-107)
Carbon Dioxide 17 L mmol/L
(22-30)
BUN 50 H mg/dl
(9-20)
Creatinine 1.9 H mg/dL
(0.7-1.3)
Glucose 119 H mg/dl
(70-99)
Calcium 11.0 H mg/dl
(8.4-10.2)
Total Protein 8.9 H g/dl
(6.3-8.2)
Ur Occult Blood Reflex 3+ A
(Negative)
Urine Nitrite (Reflex) Positive A
(Negative)
Leukocyte Esterase Rfl 3+ A
(Negative)
Urine RBC 11-15 A /HPF
(0-2)
Urine WBC (Reflex) 60-70 A /HPF
(0-5)
Urine Bacteria (Reflex) Many A
(Negative)
Urine Albumin (Reflex) 2+ A
(Neg - Trace)
09/02/24 12:24
09/02/24 12:24
Vital Signs
Initial and Last Documented VS:
Initial Vital Signs
Temp Pulse Resp BP Pulse Ox
98.2 F 99 15 144/90 97
09/02/24 11:16 09/02/24 11:16 09/02/24 11:16 09/02/24 11:16 09/02/24 11:16
Last Documented Vital Signs
Temp Pulse Resp BP Pulse Ox
98.2 F 90 11 155/76 96
09/02/24 11:16 09/02/24 13:30 09/02/24 13:30 09/02/24 11:46 09/02/24 13:37
MDM/Problems Addressed
Differential Diagnosis Includes:
Not limited to UTI infection dehydration
MDM/Problems Addressed:
Patient is a 74-year-old male with history of bladder cancer status post resection with ileal conduit presented with weakness. Urine is positive for infection. White count is normal white count is elevated at 14.6. Patient with elevated
BUN/creatinine, 50/1.9 which is increased from previous. Potassium minimally elevated at 5.3. CAT scan does show moderate left and mild right perinephric stranding left slightly greater in comparison to prior study possible on the basis of UTI
cannot exclude left Pyelo.
IV Rocephin ordered I did review cultures of urine from 2023 will start with IV Rocephin.
Patient was given small fluid bolus will require admission for weakness and UTI.
*Radiology
Radiology exam reviewed: radiology read reviewed
*Pulse Oximetry
SaO2: 96
Oxygen Mode of Delivery: Room air
Patient hypoxic: no
*Critical Care Note
Total Time (30-74mins, 75-104mins- exclusive of procedures): Not Applicable
ED Attending Note
-
Portions of this chart may have been created with voice recognition software.� Occasional wrong word or��sound alike� substitutions may have occurred due to the inherent limitations of voice recognition software.
Discharge Plan
Departure
Patient Disposition: Admit
Date of Disposition: 09/02/24
Time of Disposition: 16:46
Admit to: Med/Surg
Presentation/result/management discussed w/ accepting MD/DO: Hospitalist
Patient with high blood pressure during this ER visit?: Yes
Condition: Fair
Covid-19: Not Applicable
Discharge Problem:
Acute UTI, Acute dehydration, Acute renal insufficiency
Instructions: Urinary tract infections in adults, Acute kidney injury, Dehydration in adults - ED discharge instructions
Prescriptions:
No Action
metformin 500 mg Tablet
500 mg PO BID
divalproex 125 mg Tablet,Delayed Release (Dr/Ec)
1,500 mg PO QPM
quetiapine 100 mg Tablet
100 mg PO HS
glimepiride 2 mg Tablet
2 mg PO BID
omega-3 fatty acids Capsule
1 cap PO DAILY
rosuvastatin 10 mg Tablet
10 mg PO DAILY
bupropion HCl 150 mg Tablet Extended Release 24 Hr
150 mg PO DAILY
Referrals:
UNKNOWN - PT NOT,INTERVIEWE [Family Provider]
Interventions
Interventions:
*Risk Screen - Suicide Last Done: 09/02/24 11:16
*General Assessment Last Done: 09/02/24 11:16
*Neglect/Abuse Screening Last Done: 09/02/24 11:16
*ED COVID-19 Vaccine History Last Done: 09/02/24 11:16
ED- Cardiac Assessment Last Done: 09/02/24 12:29
ED- Neurological Assessment Last Done: 09/02/24 12:29
ED- Pulmonary Assessment Last Done: 09/02/24 12:29
Discharge Date and Time
Print Language: MARTINIQUAIS
[2024-09-02 13:23] LABS: Urine Character Cloudy (Clear)
[2024-09-02] MEDS: NSS 500 IV (13:48)
[2024-09-02 14:40] LABS: Urine Squamous Cell 0-2 /LPF (Few); Urine Urothelial Cell 0-2 /LPF (FEW)
[2024-09-02 14:42] LABS: Urine White Cell 60-70 /HPF (0-5)
[2024-09-02 14:55] VITALS: BP 150/93
[2024-09-02] MEDS: ROCEPHIN 1000 MG IV (17:00)
--- NOTE | 2024-09-02 18:01 | HPS.HSE ---
Family Physician
-
Family Physician: INTERVIEWE UNKNOWN - PT NOT
Chief Complaint
-
Weakness, intermittent fevers, vomiting
History of Present Illness
Mr. Hernandez is a 74-year-old male with medical history of bladder cancer (status post bladder resection with ileal conduit at [facility] 06/2023), NIDDM, and bipolar disorder who presented from home with generalized weakness. He also reports intermittent
fevers and vomiting over the past 1 to 2 weeks. He reports being able to ambulate without an assistive device. He also reports back pain which makes it difficult for him to get out of bed into a standing position, however says this is chronic. He
says he is being treated with ciprofloxacin twice daily for the past few months prescribed by his PCP for fevers. This will need to be confirmed with his PCP. Also, his med rec will need to be reviewed as he says he continues to take tamsulosin at
home although he no longer urinates via his urethra since his bladder resection with ileal conduit. He denies abdominal pain, diarrhea, or shortness of breath. He lives at home with his and their dog. He has had no recent sick contacts. He
does not follow-up regularly with his urologist. He has had 2 prior admissions here with similar complaints since his bladder resection, and urine culture from 12/05/2023 grew Pseudomonas aeruginosa and MDR Serratia marcescens.
In the ED, he was afebrile and normotensive and saturating appropriately on room air. He had a leukocytosis of 14.6, and MICHELLE with a creatinine of 1.9 (baseline appears to be around 1.0) and a potassium of 5.3, lactate was within normal limits,
urinalysis is positive for pyuria and bacteriuria. CT imaging of his abdomen and pelvis without contrast showed evidence of left pyelonephritis. He was started on antibiotics and IV fluids and admitted for further evaluation and management of
complicated UTI.
Medical History
Past Medical History
Past Medical History: Reports Other
Additional Past Medical History:
bladder cancer (status post bladder resection with ileal conduit at [facility] 06/2023), NIDDM, bipolar disorder
Past Surgical History: Reports Other
Additional Past Surgical History:
bladder resection with ileal conduit at [facility] 06/2023, skin cancer excision, left hand surgery after accidental amputation of third digit
Social History
Alcohol: Occasional
Drug: None
Personal:
Living: With Family
Family History
Family History: Not pertinent
Allergies / Home Medications
Allergies reflects when Allergies were last updated in [facility].
Home Medications with original date entered in [facility]
Allergy/Medication List:
Allergies
Allergy/AdvReac Type Severity Reaction Status Date / Time
Penicillins Allergy Hives; Verified 03/23/24 11:59
tolerated
cefepime
Home Medications
bupropion HCl 150 mg 24 hr tablet, extended release 150 mg PO DAILY Depression 12/06/23
glimepiride 2 mg tablet 2 mg PO BID Diabetes 12/06/23
metformin 500 mg tablet 500 mg PO BID Diabetes 12/06/23
quetiapine 100 mg tablet 100 mg PO HS Sleep 12/06/23
rosuvastatin 10 mg tablet 10 mg PO DAILY High Cholesterol 12/06/23
ciprofloxacin HCl 500 mg tablet 500 mg PO BID 09/02/24
divalproex 500 mg tablet,extended release 24 hr 1,500 mg PO DAILY 09/02/24
famotidine 20 mg tablet (Pepcid) 20 mg PO DAILYPRN PRN gerd 09/02/24
folic acid 0.8 mg capsule 0.8 mg PO DAILY 09/02/24
tamsulosin 0.4 mg capsule (Flomax) 0.4 mg PO DAILY 09/02/24
vitamin B complex 1 tab PO DAILY 09/02/24
Review of Systems
-
History Source: Patient
A 12 point ROS was completed and negative except as noted: Yes
Constitutional: Reports Fever and Fatigue
Physical Exam
Vital Signs
Vital Signs
Temp Pulse Resp BP Pulse Ox
98.2 F 94 15 150/93 97
09/02/24 11:16 09/02/24 16:45 09/02/24 16:45 09/02/24 14:55 09/02/24 16:45
Physical Exam
General: No Apparent Distress
Laboratory Results
-
09/02/24 12:24
09/02/24 12:24
Laboratory Results
Lactic Acid Cancelled 09/02/24 20:45
Total Bilirubin 0.6 mg/dl (0.2-1.3) 09/02/24 12:24
AST 39 U/L (17-59) 09/02/24 12:24
ALT 19 U/L (0-50) 09/02/24 12:24
Alkaline Phosphatase 91 U/L (38-126) 09/02/24 12:24
Impression/Plan
-
General: No Apparent Distress, Comfortable and Conversant
HEENT: NormoCephalic, Moist mucous membranes, Atraumatic
Respiratory: Clear and Non Labored Respirations
Cardiac: S1/S2 and Regular Rhythm; No Rub or Gallop
GI: Soft, Non Tender, Non Distended, ileal conduit draining appropriately
Musculoskeletal: No Edema, left hand third digit amputation
Skin: Warm and dry
: NO Mcrbide
Neuro: Awake, Alert, Nonfocal/grossly intact
Psych: Calm and cooperative
Mr. Hernandez is a 74-year-old male with medical history of bladder cancer (status post bladder resection with ileal conduit at [facility] 06/2023), NIDDM, and bipolar disorder who presented from home with generalized weakness. He also reports intermittent
fevers and vomiting over the past 1 to 2 weeks. He reports being able to ambulate without an assistive. He also reports back pain which makes it difficult for him to get out of bed into a standing position, however he says this is chronic. He
says he is being treated with ciprofloxacin twice daily for the past few months prescribed by his PCP for fevers. This will need to be confirmed with his PCP. Also, his med rec will need to be reviewed as he says he continues to take tamsulosin at
home although he no longer urinates via his urethra since his bladder resection with ileal conduit. He denies abdominal pain, diarrhea, or shortness of breath. He lives at home with his and their dog. He has had no recent sick contacts. He
does not follow-up regularly with his urologist. He has had 2 prior admissions here with similar complaints since his bladder resection, and urine culture from 12/05/2023 grew Pseudomonas aeruginosa and MDR Serratia marcescens.
In the ED, he was afebrile and normotensive and saturating appropriately on room air. He had a leukocytosis of 14.6, and MICHELLE with a creatinine of 1.9 (baseline appears to be around 1.0) and a potassium of 5.3, lactate was within normal limits,
urinalysis is positive for pyuria and bacteriuria. CT imaging of his abdomen and pelvis without contrast showed evidence of left pyelonephritis. He was started on antibiotics and IV fluids and admitted for further evaluation and management of
complicated UTI.
Complicated UTI:
- History of bladder cancer status post resection and ileal conduit which appears to be functioning appropriately
- Prior urine cultures grew Pseudomonas aeruginosa and MDR Serratia marcescens
- CT imaging shows evidence of left pyelonephritis
- Will start antibiotic coverage with cefepime and await culture results
- IV fluids
- Monitor for fevers
- If no clinical improvement may need to repeat renal imaging with contrast
MICHELLE:
- Mild with a creatinine of 1.9, suspect prerenal
- Continue IV fluids for improvement on a.m. labs
Hyperkalemia:
- Mild with serum potassium of 5.3
- Suspect related to MICHELLE, normal-appearing T waves on EKG
- Continue IV fluids and monitor on repeat labs in the morning
Generalized weakness:
- Suspect due to complicated UTI
- Will ask for PT/OT evaluation
Bipolar disorder:
- Stable
- Continue home bupropion 150 mg daily, divalproex 1500 mg daily, and quetiapine 100 mg at bedtime
NIDDM:
- Blood glucose within normal limits
- Continue home metformin 500 mg p.o. twice daily and glimepiride 2 mg p.o. twice daily
- Check hemoglobin A1c
- Can add sliding scale insulin if needed
DVT prophylaxis: Subcu heparin
CODE STATUS: Full code
Total time spent on today's encounter was 60 minutes
[2024-09-02 20:25] VITALS: BP 145/97; BMI 22.9
--- NOTE | 2024-09-02 20:30 | PTCARENOTE ---
Pt arrived via stretcher from the ED. Patient unable to walk due to his chronic back pain, pulled over onto the bed by staff. AAOx3, VSS. Patient has a urostomy, draining clear yellow. Educated on plan of care and medications. Oriented to the room,
fall risk band applied, call turcios is within reach.
[2024-09-02] MEDS: NSS 1000 IV (20:33)
[2024-09-02] MEDS: AMARYL PO (20:42)
[2024-09-02] MEDS: GLUCOPHAGE PO (20:42)
[2024-09-02] MEDS: MAXIPIME 1000 MG IV (22:35)
[2024-09-02] MEDS: STERILE WATER FOR INJECTION 10 ML IV (22:35)
[2024-09-02] MEDS: SEROQUEL 100 MG PO (22:35)
[2024-09-02] MEDS: HEPARIN SC (23:02)
[2024-09-02 23:32] VITALS: BP 135/93
[2024-09-03] MEDS: NSS 1000 IV ×2 (05:08→13:24)
[2024-09-03] MEDS: MAXIPIME 1000 MG IV ×3 (05:08→21:17)
[2024-09-03] MEDS: STERILE WATER FOR INJECTION 10 ML IV ×3 (05:08→21:17)
[2024-09-03 06:40] LABS: Hematocrit 32.6 % (39.0-52.0); Hemoglobin 10.7 g/dL (13.0-18.0); Mean Corp Hgb Conc. 32.8 g/dL (33.0-37.0); Mean Corpuscular Volume 92.4 fL (80.0-94.0); Nucleated Red Blood Cells % 0 % (-); Platelet Count 238 10^3/uL (130-400); Red Cell Dist. Width 15.7 % (11.5-14.5)
[2024-09-03 07:11] LABS: Glucose - Point of Care 106 mg/dl (70-99)
[2024-09-03 07:20] LABS: Blood Urea Nitrogen 40 mg/dl (9-20); Calcium 9.6 mg/dl (8.4-10.2); Carbon Dioxide 17 mmol/L (22-30); Chloride 114 mmol/L (98-107); Estimated Creatinine Clearance 38 ml/min; Glucose 100 mg/dl (70-99); Potassium 4.9 mmol/L (3.5-5.1); Sodium 141 mmol/L (135-145); eGFR 47.95
[2024-09-03 07:55] LABS: Glycohemoglobin (HgbA1c) 7.2 % (4.0-5.6)
[2024-09-03 07:56] VITALS: BP 154/96
[2024-09-03 08:34] VITALS: BP 148/95; PULSE 81; O2SAT 98
[2024-09-03] MEDS: FOLVITE 0.8 MG PO (08:34)
[2024-09-03] MEDS: AMARYL 2 MG PO ×2 (08:34→17:27)
[2024-09-03] MEDS: HEPARIN SC ×2 (08:34→15:35)
[2024-09-03] MEDS: DEPAKOTE ER (24 HR RELEASE) 1500 MG PO (08:34)
[2024-09-03] MEDS: CRESTOR 10 MG PO (08:34)
[2024-09-03] MEDS: GLUCOPHAGE 500 MG PO ×2 (08:34→17:27)
[2024-09-03] MEDS: WELLBUTRIN XL (24 hour extended release) 150 MG PO (08:34)
[2024-09-03 08:36] VITALS: BP 148/95; PULSE 82; O2SAT 99
[2024-09-03 11:50] LABS: Glucose - Point of Care 175 mg/dl (70-99)
--- NOTE | 2024-09-03 12:22 | W.PN.HOSP.TC ---
Today's Communication/Plan
-
Assessment / Plan
Assessment / Plan
General: No Apparent Distress, Comfortable and Conversant
HEENT: NormoCephalic, Moist mucous membranes, Atraumatic
Respiratory: Clear and Non Labored Respirations
Cardiac: S1/S2 and Regular Rhythm; No Rub or Gallop
GI: Soft, Non Tender, Non Distended, ileal conduit draining appropriately
Musculoskeletal: No Edema, left hand third digit amputation
Skin: Warm and dry
: NO Mcbride
Neuro: Awake, Alert, Nonfocal/grossly intact
Psych: Calm and cooperative
Mr. Hernandez is a 74-year-old male with medical history of bladder cancer (status post bladder resection with ileal conduit at [facility] 06/2023), NIDDM, and bipolar disorder who presented from home with generalized weakness. He also reports intermittent
fevers and vomiting over the past 1 to 2 weeks. He reports being able to ambulate without an assistive. He also reports back pain which makes it difficult for him to get out of bed into a standing position, however he says this is chronic. He
says he is being treated with ciprofloxacin twice daily for the past few months prescribed by his PCP for fevers. This will need to be confirmed with his PCP. Also, his med rec will need to be reviewed as he says he continues to take tamsulosin at
home although he no longer urinates via his urethra since his bladder resection with ileal conduit. He denies abdominal pain, diarrhea, or shortness of breath. He lives at home with his and their dog. He has had no recent sick contacts. He
does not follow-up regularly with his urologist. He has had 2 prior admissions here with similar complaints since his bladder resection, and urine culture from 12/05/2023 grew Pseudomonas aeruginosa and MDR Serratia marcescens.
In the ED, he was afebrile and normotensive and saturating appropriately on room air. He had a leukocytosis of 14.6, and MICHELLE with a creatinine of 1.9 (baseline appears to be around 1.0) and a potassium of 5.3, lactate was within normal limits,
urinalysis is positive for pyuria and bacteriuria. CT imaging of his abdomen and pelvis without contrast showed evidence of left pyelonephritis. He was started on antibiotics and IV fluids and admitted for further evaluation and management of
complicated UTI.
Complicated UTI:
- History of bladder cancer status post resection and ileal conduit which appears to be functioning appropriately
- Prior urine cultures grew Pseudomonas aeruginosa and MDR Serratia marcescens
- CT imaging shows evidence of left pyelonephritis
- Continue antibiotics with cefepime and await culture results
- IV fluids
- Leukocytosis resolved, remains afebrile
MICHELLE:
- Mild with an initial creatinine of 1.9, suspect prerenal
- Improved today with a creatinine of 1.5
- Continue IV fluids, monitor
Hyperkalemia:
- Mild with serum potassium of 5.3 on initial labs
- Now resolved within normal limits
Generalized weakness:
- Suspect due to complicated UTI
- Will ask for PT/OT evaluation
Bipolar disorder:
- Stable
- Continue home bupropion 150 mg daily, divalproex 1500 mg daily, and quetiapine 100 mg at bedtime
NIDDM:
- Blood glucose within normal limits
- Continue home metformin 500 mg p.o. twice daily and glimepiride 2 mg p.o. twice daily
- Hemoglobin A1c 7.2%
- Can add sliding scale insulin if needed
DVT prophylaxis: Subcu heparin
CODE STATUS: Full code
Total time spent on today's encounter was 40 minutes
Anticipated Discharge: 24 - 48 hours
Subjective/Interval History
-
Date of Service: September 03, 2024
Patient was seen and examined at bedside this morning. Feeling slightly better but still generally feeling weak. Was able to work productively with PT/OT this morning. Renal function improving.
Objective Data
-
Labs:
Laboratory Results
09/03/24
06:23
WBC 7.7
Hgb 10.7 L
Hct 32.6 L
Plt Count 238
Sodium 141
Potassium 4.9
Chloride 114 H
Carbon Dioxide 17 L
BUN 40 H
Creatinine 1.5 H
Glucose 100 H
Calcium 9.6
Vital Signs:
Vital Signs
Temp Pulse Resp BP Pulse Ox
98.4 F 96 20 154/96 98
09/03/24 07:56 09/03/24 07:56 09/03/24 07:56 09/03/24 07:56 09/03/24 08:45
I&O
09/02/24 09/03/24 09/04/24
06:59 06:59 06:59
Intake Total 1680 / 1680 600 / 600
Output Total 1650 / 1650 600 / 600
Balance 30 / 30 0 / 0
Review of Systems
-
History Source: Patient
All other systems: Reviewed and negative
Constitutional: Reports Weakness
Physical Exam
-
General: No Apparent Distress
[2024-09-03 14:41] VITALS: BP 111/51
[2024-09-03 15:27] VITALS: BP 139/93
[2024-09-03 16:48] LABS: Glucose - Point of Care 63 mg/dl (70-99)
[2024-09-03 17:03] LABS: Glucose - Point of Care 65 mg/dl (70-99)
--- NOTE | 2024-09-03 17:13 | VATNOTE ---
Right arm antecubital #20 protective catheter found to be infiltrated. NSS infusing through AC at the time. Swollen area around site and cool to touch. Pt denying pain. Brisk cap refill and strong pulse below site. No fluid aspirated. Patient and
family at bedside educated on elevating extremity and pillow provided.
--- NOTE | 2024-09-03 17:20 | CM ---
Attempted to meet with patient however he was asleep and would not wake up. Will attempt again.
[2024-09-03 17:25] LABS: Glucose - Point of Care 61 mg/dl (70-99)
[2024-09-03 17:48] LABS: Glucose - Point of Care 79 mg/dl (70-99)
[2024-09-03] MEDS: SEROQUEL 100 MG PO (21:17)
[2024-09-03 21:33] LABS: Glucose - Point of Care 91 mg/dl (70-99)
[2024-09-03 23:17] VITALS: BP 141/78
[2024-09-04] MEDS: HEPARIN SC ×2 (02:07→23:36)
[2024-09-04 03:27] LABS: Glucose - Point of Care 70 mg/dl (70-99)
[2024-09-04 03:52] LABS: Glucose - Point of Care 99 mg/dl (70-99)
[2024-09-04] MEDS: NSS 1000 IV (05:26)
[2024-09-04] MEDS: STERILE WATER FOR INJECTION 10 ML IV ×3 (05:27→21:11)
[2024-09-04] MEDS: MAXIPIME 1000 MG IV ×3 (05:27→21:11)
[2024-09-04 07:53] LABS: Hematocrit 33.0 % (39.0-52.0); Hemoglobin 10.7 g/dL (13.0-18.0); Mean Corp Hgb Conc. 32.4 g/dL (33.0-37.0); Mean Corpuscular Volume 93.8 fL (80.0-94.0); Nucleated Red Blood Cells % 0 % (-); Platelet Count 200 10^3/uL (130-400); Red Cell Dist. Width 15.7 % (11.5-14.5)
[2024-09-04 07:55] VITALS: BP 160/91
[2024-09-04 08:22] LABS: Glucose - Point of Care 123 mg/dl (70-99)
[2024-09-04] MEDS: GLUCOPHAGE 500 MG PO ×2 (09:27→17:57)
[2024-09-04] MEDS: CRESTOR 10 MG PO (09:27)
[2024-09-04] MEDS: DEPAKOTE ER (24 HR RELEASE) 1500 MG PO (09:27)
[2024-09-04] MEDS: HEPARIN 5000 UNITS SC ×2 (09:27→17:56)
[2024-09-04] MEDS: WELLBUTRIN XL (24 hour extended release) 150 MG PO (09:27)
[2024-09-04] MEDS: AMARYL 2 MG PO ×2 (09:28→17:57)
[2024-09-04] MEDS: FOLVITE 0.8 MG PO (09:28)
[2024-09-04 09:32] LABS: Blood Urea Nitrogen 33 mg/dl (9-20); Calcium 9.4 mg/dl (8.4-10.2); Carbon Dioxide 12 mmol/L (22-30); Chloride 118 mmol/L (98-107); Estimated Creatinine Clearance 47 ml/min; Glucose 125 mg/dl (70-99); Potassium 4.8 mmol/L (3.5-5.1); Sodium 139 mmol/L (135-145); eGFR > 60.00
--- NOTE | 2024-09-04 11:44 | VATNOTE ---
R arm infiltrate from 7/3 visualized at this time. Mild redness and bruising noted, no discomfort per patient. No further intervention implemented at this time. Will continue to monitor.
[2024-09-04] MEDS: SODIUM BICARBONATE 50 MEQ IV (12:15)
--- NOTE | 2024-09-04 12:37 | W.PN.HOSP.TC ---
Today's Communication/Plan
-
Assessment / Plan
Assessment / Plan
General: No Apparent Distress, Comfortable and Conversant
HEENT: NormoCephalic, Moist mucous membranes, Atraumatic
Respiratory: Clear and Non Labored Respirations
Cardiac: S1/S2 and Regular Rhythm; No Rub or Gallop
GI: Soft, Non Tender, Non Distended, ileal conduit draining appropriately
Musculoskeletal: No Edema, left hand third digit amputation
Skin: Warm and dry
: NO Mcbride
Neuro: Awake, Alert, Nonfocal/grossly intact
Psych: Calm and cooperative
Mr. Hernandez is a 74-year-old male with medical history of bladder cancer (status post bladder resection with ileal conduit at [facility] 06/2023), NIDDM, and bipolar disorder who presented from home with generalized weakness. He also reports intermittent
fevers and vomiting over the past 1 to 2 weeks. He reports being able to ambulate without an assistive. He also reports back pain which makes it difficult for him to get out of bed into a standing position, however he says this is chronic. He
says he is being treated with ciprofloxacin twice daily for the past few months prescribed by his PCP for fevers. This will need to be confirmed with his PCP. Also, his med rec will need to be reviewed as he says he continues to take tamsulosin at
home although he no longer urinates via his urethra since his bladder resection with ileal conduit. He denies abdominal pain, diarrhea, or shortness of breath. He lives at home with his and their dog. He has had no recent sick contacts. He
does not follow-up regularly with his urologist. He has had 2 prior admissions here with similar complaints since his bladder resection, and urine culture from 12/05/2023 grew Pseudomonas aeruginosa and MDR Serratia marcescens.
In the ED, he was afebrile and normotensive and saturating appropriately on room air. He had a leukocytosis of 14.6, and MICHELLE with a creatinine of 1.9 (baseline appears to be around 1.0) and a potassium of 5.3, lactate was within normal limits,
urinalysis is positive for pyuria and bacteriuria. CT imaging of his abdomen and pelvis without contrast showed evidence of left pyelonephritis. He was started on antibiotics and IV fluids and admitted for further evaluation and management of
complicated UTI.
Complicated UTI:
- History of bladder cancer status post resection and ileal conduit which appears to be functioning appropriately
- Prior urine cultures grew Pseudomonas aeruginosa and MDR Serratia marcescens, current blood cultures growing staph epi which may be an contaminant, repeat cultures pending
- CT imaging shows evidence of left pyelonephritis
- Continue antibiotics with cefepime
- Hold further IV fluids
- Leukocytosis resolved, remains afebrile
Nongapped metabolic acidosis:
- Bicarb of 12 on a.m. labs down from 17 yesterday
- Likely related to ileal conduit
- Given a dose of IV bicarb with additional p.o. scheduled
- Remains hemodynamically stable
- Will recheck labs this afternoon
MICHELLE:
- Mild with an initial creatinine of 1.9, suspect prerenal
- Resolved with a creatinine this morning of 1.2
Hyperkalemia:
- Mild with serum potassium of 5.3 on initial labs
- Now resolved within normal limits
Generalized weakness:
- Suspect due to complicated UTI
- Evaluated by PT/OT who are recommending SNF when medically stable
Bipolar disorder:
- Stable
- Continue home bupropion 150 mg daily, divalproex 1500 mg daily, and quetiapine 100 mg at bedtime
NIDDM:
- Blood glucose within normal limits
- Continue home metformin 500 mg p.o. twice daily and glimepiride 2 mg p.o. twice daily
- Hemoglobin A1c 7.2%
- Can add sliding scale insulin if needed
DVT prophylaxis: Subcu heparin
CODE STATUS: Full code
Total time spent on today's encounter was 40 minutes
Anticipated Discharge: 24 - 48 hours
Subjective/Interval History
-
Date of Service: September 04, 2024
Patient was seen and examined at bedside this morning. Feeling generally well although still has significant weakness.
Objective Data
-
Labs:
Laboratory Results
09/04/24 09/04/24 09/04/24
07:00 07:01 08:33
WBC 5.3
Hgb 10.7 L
Hct 33.0 L
Plt Count 200
Sodium Cancelled 139
Potassium Cancelled 4.8
Chloride Cancelled 118 H
Carbon Dioxide Cancelled 12 L*
BUN Cancelled 33 H
Creatinine Cancelled 1.2
Glucose Cancelled 125 H
Calcium Cancelled 9.4
Vital Signs:
Vital Signs
Temp Pulse Resp BP Pulse Ox
98.4 F 81 18 160/91 97
09/04/24 07:55 09/04/24 07:55 09/04/24 07:55 09/04/24 07:55 09/04/24 07:55
I&O
09/03/24 09/04/24 09/05/24
06:59 06:59 06:59
Intake Total 1680 / 1680 2520 / 2520
Output Total 1650 / 1650 3150 / 3150
Balance 30 / 30 -630 / -630
Review of Systems
-
History Source: Patient
All other systems: Reviewed and negative
Constitutional: Reports Weakness
Physical Exam
-
General: No Apparent Distress
[2024-09-04 13:17] LABS: Glucose - Point of Care 156 mg/dl (70-99)
[2024-09-04 15:48] VITALS: BP 158/79
[2024-09-04 17:21] LABS: Glucose - Point of Care 129 mg/dl (70-99)
[2024-09-04] MEDS: SODIUM BICARBONATE 650 MG PO ×2 (17:56→21:11)
[2024-09-04] MEDS: FLUSH (NSS) 1 FLUSH IV (17:59)
[2024-09-04 20:21] LABS: Blood Urea Nitrogen 30 mg/dl (9-20); Calcium 8.9 mg/dl (8.4-10.2); Carbon Dioxide 18 mmol/L (22-30); Chloride 113 mmol/L (98-107); Estimated Creatinine Clearance 47 ml/min; Glucose 263 mg/dl (70-99); Potassium 4.5 mmol/L (3.5-5.1); Sodium 139 mmol/L (135-145); eGFR > 60.00
[2024-09-04 21:08] LABS: Glucose - Point of Care 206 mg/dl (70-99)
[2024-09-04] MEDS: SEROQUEL 100 MG PO (21:11)
[2024-09-04 23:45] VITALS: BP 144/77
[2024-09-05] MEDS: MAXIPIME 1000 MG IV ×3 (05:09→21:18)
[2024-09-05] MEDS: STERILE WATER FOR INJECTION 10 ML IV ×3 (05:09→21:17)
[2024-09-05 07:32] LABS: Hematocrit 31.3 % (39.0-52.0); Hemoglobin 10.1 g/dL (13.0-18.0); Mean Corp Hgb Conc. 32.3 g/dL (33.0-37.0); Mean Corpuscular Volume 92.1 fL (80.0-94.0); Nucleated Red Blood Cells % 0 % (-); Platelet Count 202 10^3/uL (130-400); Red Cell Dist. Width 15.3 % (11.5-14.5)
[2024-09-05 07:35] LABS: Glucose - Point of Care 108 mg/dl (70-99)
[2024-09-05 07:49] VITALS: BP 169/87
[2024-09-05 07:56] LABS: Blood Urea Nitrogen 25 mg/dl (9-20); Calcium 9.5 mg/dl (8.4-10.2); Carbon Dioxide 18 mmol/L (22-30); Chloride 117 mmol/L (98-107); Estimated Creatinine Clearance 47 ml/min; Glucose 116 mg/dl (70-99); Potassium 4.4 mmol/L (3.5-5.1); Sodium 142 mmol/L (135-145); eGFR > 60.00
[2024-09-05] MEDS: DEPAKOTE ER (24 HR RELEASE) 1500 MG PO (10:37)
[2024-09-05] MEDS: SODIUM BICARBONATE 650 MG PO ×3 (10:44→21:17)
[2024-09-05] MEDS: WELLBUTRIN XL (24 hour extended release) 150 MG PO (10:45)
[2024-09-05] MEDS: FOLVITE 0.8 MG PO (10:45)
[2024-09-05] MEDS: AMARYL 2 MG PO ×2 (10:45→18:05)
[2024-09-05] MEDS: GLUCOPHAGE 500 MG PO ×2 (10:54→18:05)
[2024-09-05] MEDS: CRESTOR 10 MG PO (10:55)
[2024-09-05] MEDS: HEPARIN 5000 UNITS SC ×2 (10:55→18:05)
[2024-09-05] MEDS: FLUSH (NSS) 1 FLUSH IV (10:56)
--- NOTE | 2024-09-05 11:37 | VATNOTE ---
rac continues to have redness at old infiltrate site, no edema, pt denies discomfort. no treatment given, will monitor
[2024-09-05] MEDS: FLUSH (NSS) 2 FLUSH IV (13:27)
--- NOTE | 2024-09-05 13:36 | W.PN.HOSP.TC ---
Today's Communication/Plan
-
Assessment / Plan
Assessment / Plan
General: No Apparent Distress, Comfortable and Conversant
HEENT: NormoCephalic, Moist mucous membranes, Atraumatic
Respiratory: Clear and Non Labored Respirations
Cardiac: S1/S2 and Regular Rhythm; No Rub or Gallop
GI: Soft, Non Tender, Non Distended, ileal conduit draining appropriately
Musculoskeletal: No Edema, left hand third digit amputation
Skin: Warm and dry
: NO Mcbride
Neuro: Awake, Alert, Nonfocal/grossly intact
Psych: Calm and cooperative
Mr. Hernandez is a 74-year-old male with medical history of bladder cancer (status post bladder resection with ileal conduit at [facility] 06/2023), NIDDM, and bipolar disorder who presented from home with generalized weakness. He also reports intermittent
fevers and vomiting over the past 1 to 2 weeks. He reports being able to ambulate without an assistive. He also reports back pain which makes it difficult for him to get out of bed into a standing position, however he says this is chronic. He
says he is being treated with ciprofloxacin twice daily for the past few months prescribed by his PCP for fevers. This will need to be confirmed with his PCP. Also, his med rec will need to be reviewed as he says he continues to take tamsulosin at
home although he no longer urinates via his urethra since his bladder resection with ileal conduit. He denies abdominal pain, diarrhea, or shortness of breath. He lives at home with his and their dog. He has had no recent sick contacts. He
does not follow-up regularly with his urologist. He has had 2 prior admissions here with similar complaints since his bladder resection, and urine culture from 12/05/2023 grew Pseudomonas aeruginosa and MDR Serratia marcescens.
In the ED, he was afebrile and normotensive and saturating appropriately on room air. He had a leukocytosis of 14.6, and MICHELLE with a creatinine of 1.9 (baseline appears to be around 1.0) and a potassium of 5.3, lactate was within normal limits,
urinalysis is positive for pyuria and bacteriuria. CT imaging of his abdomen and pelvis without contrast showed evidence of left pyelonephritis. He was started on antibiotics and IV fluids and admitted for further evaluation and management of
complicated UTI.
Complicated UTI:
- History of bladder cancer status post resection and ileal conduit which appears to be functioning appropriately
- Prior urine cultures grew Pseudomonas aeruginosa and MDR Serratia marcescens, current blood cultures growing staph epi which may be an contaminant, repeat cultures with no growth to date
- Initial CT imaging shows evidence of left pyelonephritis
- Have been treating with cefepime, will plan to transition to oral ciprofloxacin
- Hold further IV fluids
- Leukocytosis resolved, remains afebrile
- Anticipate discharge to SNF in the next 24 to 48 hours once final culture results are available
Nongapped metabolic acidosis:
- Bicarb dropped to 12, to 18 after IV and oral bicarb
- Likely related to ileal conduit
- Will continue scheduled p.o. bicarb
- Remains hemodynamically stable
MICHELLE:
- Mild with an initial creatinine of 1.9, suspect prerenal
- Resolved with a creatinine this morning of 1.2
Hyperkalemia:
- Mild with serum potassium of 5.3 on initial labs
- Now resolved within normal limits
Generalized weakness:
- Suspect due to complicated UTI
- Improving
- Evaluated by PT/OT who are recommending SNF when medically stable
Bipolar disorder:
- Stable
- Continue home bupropion 150 mg daily, divalproex 1500 mg daily, and quetiapine 100 mg at bedtime
NIDDM:
- Blood glucose within normal limits
- Continue home metformin 500 mg p.o. twice daily and glimepiride 2 mg p.o. twice daily
- Hemoglobin A1c 7.2%
- Additional sliding scale insulin as needed
DVT prophylaxis: Subcu heparin
CODE STATUS: Full code
Total time spent on today's encounter was 40 minutes
Anticipated Discharge: 24 - 48 hours
Subjective/Interval History
-
Date of Service: September 05, 2024
Patient was seen and examined at bedside this morning. Repeat blood cultures negative. Feeling a bit stronger when ambulating with PT.
Objective Data
-
Labs:
Laboratory Results
09/05/24
06:46
WBC 6.2
Hgb 10.1 L
Hct 31.3 L
Plt Count 202
Sodium 142
Potassium 4.4
Chloride 117 H
Carbon Dioxide 18 L
BUN 25 H
Creatinine 1.2
Glucose 116 H
Calcium 9.5
Vital Signs:
Vital Signs
Temp Pulse Resp BP Pulse Ox
98.4 F 77 18 169/87 97
09/05/24 07:49 09/05/24 07:49 09/05/24 07:49 09/05/24 07:49 09/05/24 07:49
I&O
09/04/24 09/05/24 09/06/24
06:59 06:59 06:59
Intake Total 2520 / 2520 1470 / 1470
Output Total 3150 / 3150 2450 / 2450
Balance -630 / -630 -980 / -980
Review of Systems
-
History Source: Patient
All other systems: Reviewed and negative
Constitutional: Reports Weakness
Physical Exam
-
General: No Apparent Distress
[2024-09-05 15:43] VITALS: BP 162/86
--- NOTE | 2024-09-05 16:38 | CM ---
Alert awake oriented patient who lives with his Hermila who lives in a 2 story home with 3 step to enter and 12 steps to bed and bathroom. He is independent in driving and in all activities of daily living.He was offered VN he requested [facility]
.His will drive him home.He uses a walker.
No VN hx / [facility] history
Pharmacy [facility] [place]
PCP DR Nieto
PLAN Home with [facility]
[2024-09-05 17:32] LABS: Glucose - Point of Care 115 mg/dl (70-99)
[2024-09-05] MEDS: NOVOLOG FLEXPEN-LOW RESISTANCE SC (18:05)
[2024-09-05] MEDS: SEROQUEL 100 MG PO (21:17)
[2024-09-05 21:42] LABS: Glucose - Point of Care 102 mg/dl (70-99)
[2024-09-05] MEDS: HEPARIN SC (22:17)
[2024-09-05 23:07] VITALS: BP 142/68
[2024-09-06] MEDS: MAXIPIME 1000 MG IV ×3 (05:57→22:24)
[2024-09-06] MEDS: STERILE WATER FOR INJECTION 10 ML IV ×3 (05:57→22:24)
[2024-09-06 07:11] VITALS: BP 150/87
[2024-09-06 07:18] LABS: Glucose - Point of Care 91 mg/dl (70-99)
[2024-09-06 07:41] LABS: Blood Urea Nitrogen 27 mg/dl (9-20); Calcium 9.5 mg/dl (8.4-10.2); Carbon Dioxide 19 mmol/L (22-30); Chloride 116 mmol/L (98-107); Estimated Creatinine Clearance 52 ml/min; Glucose 99 mg/dl (70-99); Potassium 4.2 mmol/L (3.5-5.1); Sodium 141 mmol/L (135-145); eGFR > 60.00
[2024-09-06] MEDS: GLUCOPHAGE 500 MG PO ×2 (09:23→16:37)
[2024-09-06] MEDS: CRESTOR 10 MG PO (09:23)
[2024-09-06] MEDS: DEPAKOTE ER (24 HR RELEASE) 1500 MG PO (09:23)
[2024-09-06] MEDS: SODIUM BICARBONATE 650 MG PO (09:23)
[2024-09-06] MEDS: WELLBUTRIN XL (24 hour extended release) 150 MG PO (09:24)
[2024-09-06] MEDS: HEPARIN 5000 UNITS SC ×2 (09:24→16:36)
[2024-09-06] MEDS: AMARYL 2 MG PO ×2 (09:24→16:36)
[2024-09-06] MEDS: FOLVITE 0.8 MG PO (09:24)
[2024-09-06] MEDS: NOVOLOG FLEXPEN-LOW RESISTANCE SC (09:26)
--- NOTE | 2024-09-06 10:36 | VATNOTE ---
[facility] INFILTR[facility] RESLOVED, WILL CONT TO FOLLOW FOR VAT NEEDS
--- NOTE | 2024-09-06 10:49 | W.PN.HOSP.TC ---
Today's Communication/Plan
-
see plan
Assessment / Plan
Assessment / Plan
74-year-old male with medical history of bladder cancer (status post bladder resection with ileal conduit at [facility] 06/2023), NIDDM, and bipolar disorder who presented from home with generalized weakness. He also reports intermittent fevers and
vomiting over the past 1 to 2 weeks. He reports being able to ambulate without an assistive. He also reports back pain which makes it difficult for him to get out of bed into a standing position, however he says this is chronic. He says he is
being treated with ciprofloxacin twice daily for the past few months prescribed by his PCP for fevers. This will need to be confirmed with his PCP. Also, his med rec will need to be reviewed as he says he continues to take tamsulosin at home
although he no longer urinates via his urethra since his bladder resection with ileal conduit. He denies abdominal pain, diarrhea, or shortness of breath. He lives at home with his and their dog. He has had no recent sick contacts. He does
not follow-up regularly with his urologist. He has had 2 prior admissions here with similar complaints since his bladder resection, and urine culture from 12/05/2023 grew Pseudomonas aeruginosa and MDR Serratia marcescens.
In the ED, he was afebrile and normotensive and saturating appropriately on room air. He had a leukocytosis of 14.6, and MICHELLE with a creatinine of 1.9 (baseline appears to be around 1.0) and a potassium of 5.3, lactate was within normal limits,
urinalysis is positive for pyuria and bacteriuria. CT imaging of his abdomen and pelvis without contrast showed evidence of left pyelonephritis. He was started on antibiotics and IV fluids and admitted for further evaluation and management of
complicated UTI.
Gen: NAD, Awake and alert
Eyes: EOMI, PERRLA, no scleral icterus.
Neck: supple.
CV: RRR, +S1/S2, no m/r/g.
Resp: CTAB, no rales, wheezes, or rhonchi.
Abd: +BS, soft, NT, ND
Skin: No rashes.
Neuro: CN 2-12 intact, non-focal.
Psych: Normal mood and affect.
09/04/24 09:42 Blood/Venous Blood Culture - Preliminary
No Growth in 48 hours- Final report to follow
09/02/24 16:53 Blood/Venous Blood Culture - Preliminary
No Growth in 72 hours- Final report to follow
09/02/24 17:00 Blood/Venous Blood Culture - Final
Staphylococcus epidermidis
Additional testing on request
09/02/24 17:00 Blood/Venous Gram Stain - Final
09/02/24 12:24 Urine Urine Culture - Final
CT A/P 09/02/24: Prior cystectomy with urinary diversion and right lower quadrant urostomy and ileal conduit again seen. Mild left renal collecting system and left ureteral dilatation similar in caliber to prior study most likely nonobstructive.
However, there is moderate left and mild right perinephric stranding, left slightly greater in comparison to prior study, findings possibly on the basis of urinary tract infection, cannot exclude left pyelonephritis on this study without intravenous
contrast. Small bilateral simple renal cysts. Colonic diverticulosis.
Complicated UTI:
-h/o bladder CA s/p resection and ileal conduit which appears to be functioning appropriately
-prior UCxs grew Pseudomonas aeruginosa and MDR Serratia marcescens (sensitive to Cipro)
-initial BCx with staph epi (likely a contaminant), repeat BCx NG x [address] A/P with possible L pyelonephritis
-cont Cefepime with plan to transition to PO Cipro
-s/p IVFs
-leukocytosis has resolved
Non-AG metabolic acidosis:
-Bicarb dropped to 12, now 19 after IV and oral bicarb
-likely related to ileal conduit
-increase PO bicarb to 1300mg TID
MICHELLE: prerenal azotemia, resolved with IVFs
Hyperkalemia, resolved
Generalized weakness: due to complicated UTI, improving, PT/OT, will need SNF
Bipolar disorder: cont home bupropion/divalproex/quetiapine
DM2: a1c 7.2%, cont Metformin/Glimepiride, SSI/accuchecks
FULL/heparin
Total time spent on today's encounter was 50 minutes which included time spent in counseling the patient/family regarding diagnosis and treatment plan as listed above, goals of care, and symptom management. Case was discussed with nursing staff,
specialists, and care coordinators/case management. All labs and imaging personally reviewed by me. Remainder the time spent in detailed review of previous records, lab data, imaging, and other medical provider documentation.
Anticipated Discharge: Within 24 hours
Subjective/Interval History
-
Date of Service: September 06, 2024
No new complaints.
Objective Data
-
Labs:
Laboratory Results
09/06/24
06:40
Sodium 141
Potassium 4.2
Chloride 116 H
Carbon Dioxide 19 L
BUN 27 H
Creatinine 1.1
Glucose 99
Calcium 9.5
Vital Signs:
Vital Signs
Temp Pulse Resp BP Pulse Ox
97.6 F 79 16 150/87 97
09/06/24 07:11 09/06/24 07:11 09/06/24 07:11 09/06/24 07:11 09/06/24 07:11
I&O
09/05/24 09/06/24 09/07/24
06:59 06:59 06:59
Intake Total 1470 / 1470 1440 / 1440 240 / 240
Output Total 2450 / 2450 2500 / 2500
Balance -980 / -980 -1060 / -1060 240 / 240
[2024-09-06 12:23] LABS: Glucose - Point of Care 208 mg/dl (70-99)
[2024-09-06] MEDS: NOVOLOG FLEXPEN-LOW RESISTANCE 2 UNITS SC (13:14)
[2024-09-06] MEDS: FLUSH (NSS) 2 FLUSH IV (13:15)
[2024-09-06 15:50] VITALS: BP 153/70
[2024-09-06] MEDS: SODIUM BICARBONATE 1300 MG PO ×2 (16:36→22:23)
[2024-09-06 16:52] LABS: Glucose - Point of Care 182 mg/dl (70-99)
--- NOTE | 2024-09-06 16:57 | CM ---
PT indicated SNF .
Spoke with pt in room .
Reviewed PT with pt .
Pt requested [facility].Referral made.
PLAN Check if SNf can accept
[2024-09-06] MEDS: NOVOLOG FLEXPEN-LOW RESISTANCE 1 UNITS SC (17:58)
[2024-09-06 21:33] LABS: Glucose - Point of Care 137 mg/dl (70-99)
[2024-09-06] MEDS: SEROQUEL 100 MG PO (22:23)
[2024-09-06] MEDS: TYLENOL 650 MG PO (22:23)
[2024-09-06 23:12] VITALS: BP 141/77
[2024-09-07] MEDS: MAXIPIME 1000 MG IV ×3 (06:16→21:31)
[2024-09-07] MEDS: STERILE WATER FOR INJECTION 10 ML IV ×3 (06:16→21:22)
[2024-09-07] MEDS: FLUSH (NSS) 1 FLUSH IV ×2 (06:18→21:23)
[2024-09-07 07:10] VITALS: BP 146/82
[2024-09-07 07:17] LABS: Glucose - Point of Care 101 mg/dl (70-99)
[2024-09-07] MEDS: NOVOLOG FLEXPEN-LOW RESISTANCE SC ×2 (07:37→12:33)
[2024-09-07 07:51] LABS: Blood Urea Nitrogen 27 mg/dl (9-20); Calcium 9.4 mg/dl (8.4-10.2); Carbon Dioxide 20 mmol/L (22-30); Chloride 112 mmol/L (98-107); Estimated Creatinine Clearance 47 ml/min; Glucose 102 mg/dl (70-99); Potassium 4.2 mmol/L (3.5-5.1); Sodium 139 mmol/L (135-145); eGFR > 60.00
[2024-09-07] MEDS: AMARYL 2 MG PO ×2 (08:34→17:18)
[2024-09-07] MEDS: GLUCOPHAGE 500 MG PO ×2 (08:34→17:18)
[2024-09-07] MEDS: FOLVITE 0.8 MG PO (08:34)
[2024-09-07] MEDS: CRESTOR 10 MG PO (08:34)
[2024-09-07] MEDS: SODIUM BICARBONATE 1300 MG PO ×3 (08:34→21:21)
[2024-09-07] MEDS: WELLBUTRIN XL (24 hour extended release) 150 MG PO (08:35)
[2024-09-07] MEDS: DEPAKOTE ER (24 HR RELEASE) 1500 MG PO (08:35)
[2024-09-07] MEDS: HEPARIN 5000 UNITS SC ×2 (08:35→17:18)
--- NOTE | 2024-09-07 09:04 | PN.CDI ---
CDI
- -
CDI:
Physician Documentation Request
Admit Date: 09/02/24 18:11
Dear Doctor,
Please review the following and provide your response in the progress notes.
Clinical Indicators:
Pt admitted with complicated UTI and MICHELLE.
09/06 Progress Note: ' ...presented from home with generalized weakness. He also reports intermittent fevers and vomiting over the past 1 to 2 weeks...'
Selected Entries
09/02/24
11:16 09/02/24
12:15 09/02/24
13:00
Pulse 99 94 95
Laboratory Tests
09/02/24
12:24
WBC 14.6 H
Please clarify which of the following most accurately describes the status of the patient's infection:
Sepsis
- Systemic manifestations of infection, with 2 or more SIRS criteria which include:
- Fever >100.9 degrees F or hypothermia < 96.8 degrees F
- Leukocytosis - WBC > 12,000 or leukopenia - WBC < 4,000 or > 10% bands
- Tachycardia > 90 beats per minute
- Tachypnea - RR > 20 breaths per minute or PaCO2 , 32mmHg
Source: Merck Manual 2012
- Indicate the known or suspected underlying infection, such as UTI, pneumonia or cellulitis
- Indicate if a suspected bacterial infection of unknown source
- Indicate if associated with an Ileal conduit
Severe Sepsis
- Sepsis with associated acute organ dysfunction, such as renal or respiratory failure
- Documentation should indicate the association between the sepsis and the organ dysfunction
UTI Only, Without Systemic Illness
Bacteremia
- Abnormal lab finding only, does not indicate systemic illness
Other
Use of terms such as suspected, likely, concern for, or probable (associated with a specific diagnosis that is being evaluated, monitored, or treated as if it exists) are acceptable and can be coded in the inpatient setting, when documented at the
time of discharge.
Thank you,
Anali Morris RN, BSN
CDI Specialist
[place] [facility]
Please use your independent medical judgment in providing your response.
--- NOTE | 2024-09-07 09:21 | PN.CDI ---
CDI
- -
CDI:
Physician Documentation Request
Admit Date: 09/02/24 18:11
Dear Doctor,
Please review the following and provide your response in the progress notes.
Clinical Indicators:
Pt admitted with UTI and MICHELLE.
Past medical History includes bladder cancer (status post bladder resection with ileal conduit at [facility] 06/2023
09/07 Progress Note: ' He has had 2 prior admissions here with similar complaints since his bladder resection, and urine culture from 12/05/2023 grew Pseudomonas aeruginosa and MDR Serratia marcescens.'
Please clarify the relationship between these conditions:
Yes, UTI is related to/associated with/due to ileal conduit.
No, UTI is not related to/associated with/due to ileal conduit.
Other
Use of terms such as suspected, likely, concern for, or probable (associated with a specific diagnosis that is being evaluated, monitored, or treated as if it exists) are acceptable and can be coded in the inpatient setting, when documented at the
time of discharge.
Thank you,
Anali Morris RN, BSN
CDI Specialist
[place] [facility]
Please use your independent medical judgment in providing your response.
[2024-09-07 09:30] VITALS: BP 157/83; PULSE 78; O2SAT 96
[2024-09-07 09:46] VITALS: BP 148/84; PULSE 85; O2SAT 97
--- NOTE | 2024-09-07 09:52 | W.PN.HOSP.TC ---
Addendum entered and electronically signed by Deuce Mclain MD 09/07/24 16:57:
Sepsis, POA, due to UTI which was related to/associated with/due to ileal conduit.
Addendum entered and electronically signed by Deuce Mclain MD 09/07/24 13:00:
UTI is related to/associated with/due to ileal conduit.
Original Note:
Today's Communication/Plan
-
see plan
Assessment / Plan
Assessment / Plan
74-year-old male with medical history of bladder cancer (status post bladder resection with ileal conduit at [facility] 06/2023), NIDDM, and bipolar disorder who presented from home with generalized weakness. He also reports intermittent fevers and
vomiting over the past 1 to 2 weeks. He reports being able to ambulate without an assistive. He also reports back pain which makes it difficult for him to get out of bed into a standing position, however he says this is chronic. He says he is
being treated with ciprofloxacin twice daily for the past few months prescribed by his PCP for fevers. This will need to be confirmed with his PCP. Also, his med rec will need to be reviewed as he says he continues to take tamsulosin at home
although he no longer urinates via his urethra since his bladder resection with ileal conduit. He denies abdominal pain, diarrhea, or shortness of breath. He lives at home with his and their dog. He has had no recent sick contacts. He does
not follow-up regularly with his urologist. He has had 2 prior admissions here with similar complaints since his bladder resection, and urine culture from 12/05/2023 grew Pseudomonas aeruginosa and MDR Serratia marcescens.
In the ED, he was afebrile and normotensive and saturating appropriately on room air. He had a leukocytosis of 14.6, and MICHELLE with a creatinine of 1.9 (baseline appears to be around 1.0) and a potassium of 5.3, lactate was within normal limits,
urinalysis is positive for pyuria and bacteriuria. CT imaging of his abdomen and pelvis without contrast showed evidence of left pyelonephritis. He was started on antibiotics and IV fluids and admitted for further evaluation and management of
complicated UTI.
Gen: NAD, Awake and alert
Eyes: EOMI, PERRLA, no scleral icterus.
Neck: supple.
CV: RRR, +S1/S2, no m/r/g.
Resp: CTAB, no rales, wheezes, or rhonchi.
Abd: +BS, soft, NT, ND
Skin: No rashes.
Neuro: CN 2-12 intact, non-focal.
Psych: Normal mood and affect.
09/04/24 09:42 Blood/Venous Blood Culture - Preliminary
No Growth in 72 hours- Final report to follow
09/02/24 16:53 Blood/Venous Blood Culture - Preliminary
No Growth in 4 days- Final report to follow
09/02/24 17:00 Blood/Venous Blood Culture - Final
Staphylococcus epidermidis
Additional testing on request
09/02/24 17:00 Blood/Venous Gram Stain - Final
09/02/24 12:24 Urine Urine Culture - Final
CT A/P 09/02/24: Prior cystectomy with urinary diversion and right lower quadrant urostomy and ileal conduit again seen. Mild left renal collecting system and left ureteral dilatation similar in caliber to prior study most likely nonobstructive.
However, there is moderate left and mild right perinephric stranding, left slightly greater in comparison to prior study, findings possibly on the basis of urinary tract infection, cannot exclude left pyelonephritis on this study without intravenous
contrast. Small bilateral simple renal cysts. Colonic diverticulosis.
Complicated UTI:
-h/o bladder CA s/p resection and ileal conduit which appears to be functioning appropriately
-prior UCxs grew Pseudomonas aeruginosa and MDR Serratia marcescens (sensitive to Cipro)
-initial BCx with staph epi (likely a contaminant), repeat BCx NG x 72 [address] A/P with possible L pyelonephritis
-cont Cefepime with plan to transition to PO Cipro (to complete 10-14 days) on discharge
-s/p IVFs
-leukocytosis has resolved
Non-AG metabolic acidosis:
-Bicarb dropped to 12, now 19 after IV and oral bicarb
-likely related to ileal conduit
-cont PO bicarb at increased dose of 1300mg TID
MICHELLE: prerenal azotemia, resolved with IVFs
Hyperkalemia, resolved
Generalized weakness: due to complicated UTI, improving, PT/OT, will need SNF
Bipolar disorder: cont home bupropion/divalproex/quetiapine
DM2: a1c 7.2%, cont Metformin/Glimepiride, SSI/accuchecks
FULL/heparin
Medically cleared for d/c, case management aware.
Anticipated Discharge: Today
Subjective/Interval History
-
Date of Service: September 07, 2024
No new complaints.
Objective Data
-
Labs:
Laboratory Results
09/07/24
06:10
Sodium 139
Potassium 4.2
Chloride 112 H
Carbon Dioxide 20 L
BUN 27 H
Creatinine 1.2
Glucose 102 H
Calcium 9.4
Vital Signs:
Vital Signs
Temp Pulse Resp BP Pulse Ox
97.4 F 76 16 146/82 97
09/07/24 07:10 09/07/24 07:10 09/07/24 07:10 09/07/24 07:10 09/07/24 07:10
I&O
09/06/24 09/07/24 09/08/24
06:59 06:59 06:59
Intake Total 1440 / 1440 1320 / 1320
Output Total 2500 / 2500 1950 / 1950
Balance -1060 / -1060 -630 / -630
[2024-09-07 12:16] LABS: Glucose - Point of Care 109 mg/dl (70-99)
[2024-09-07 15:20] VITALS: BP 129/74
[2024-09-07 16:31] LABS: Glucose - Point of Care 163 mg/dl (70-99)
--- NOTE | 2024-09-07 16:41 | CM ---
PT indicated SNF .
Spoke with pt and son Estuardo both agree on [facility] .
[facility] from [facility] accepted pt and provided NPI #s.
Estuardo will drive patient to [facility]
Auth # [id number] for 5 skilled days till 09/11/24 NRD call [phone] . [facility] is aware.
[facility]
report [phone]
fax [phone]
PLAN To [facility] at discharge.
[2024-09-07] MEDS: NOVOLOG FLEXPEN-LOW RESISTANCE 1 UNITS SC (17:18)
[2024-09-07 21:11] LABS: Glucose - Point of Care 126 mg/dl (70-99)
[2024-09-07] MEDS: SEROQUEL 100 MG PO (21:21)
[2024-09-07 23:38] VITALS: BP 131/71
[2024-09-07] MEDS: HEPARIN SC ×2 (23:56)
[2024-09-08] MEDS: STERILE WATER FOR INJECTION 10 ML IV ×2 (05:31→13:10)
[2024-09-08] MEDS: MAXIPIME 1000 MG IV ×2 (05:32→13:10)
[2024-09-08 07:00] VITALS: BP 134/84
[2024-09-08 08:14] LABS: Glucose - Point of Care 53 mg/dl (70-99)
[2024-09-08] MEDS: DEPAKOTE ER (24 HR RELEASE) 1500 MG PO (08:14)
[2024-09-08] MEDS: FOLVITE 0.8 MG PO (08:14)
[2024-09-08] MEDS: AMARYL 2 MG PO (08:14)
[2024-09-08] MEDS: HEPARIN 5000 UNITS SC (08:14)
[2024-09-08] MEDS: NOVOLOG FLEXPEN-LOW RESISTANCE SC (08:15)
[2024-09-08] MEDS: WELLBUTRIN XL (24 hour extended release) 150 MG PO (08:15)
[2024-09-08] MEDS: GLUCOPHAGE PO (08:15)
[2024-09-08] MEDS: SODIUM BICARBONATE 1300 MG PO (08:15)
[2024-09-08] MEDS: CRESTOR 10 MG PO (08:15)
[2024-09-08 08:32] LABS: Glucose - Point of Care 68 mg/dl (70-99)
[2024-09-08 08:48] LABS: Glucose - Point of Care 103 mg/dl (70-99)
--- NOTE | 2024-09-08 09:09 | W.PN.HOSP.TC ---
Today's Communication/Plan
-
d/c
Assessment / Plan
Assessment / Plan
74-year-old male with medical history of bladder cancer (status post bladder resection with ileal conduit at [facility] 06/2023), NIDDM, and bipolar disorder who presented from home with generalized weakness. He also reports intermittent fevers and
vomiting over the past 1 to 2 weeks. He reports being able to ambulate without an assistive. He also reports back pain which makes it difficult for him to get out of bed into a standing position, however he says this is chronic. He says he is
being treated with ciprofloxacin twice daily for the past few months prescribed by his PCP for fevers. This will need to be confirmed with his PCP. Also, his med rec will need to be reviewed as he says he continues to take tamsulosin at home
although he no longer urinates via his urethra since his bladder resection with ileal conduit. He denies abdominal pain, diarrhea, or shortness of breath. He lives at home with his and their dog. He has had no recent sick contacts. He does
not follow-up regularly with his urologist. He has had 2 prior admissions here with similar complaints since his bladder resection, and urine culture from 12/05/2023 grew Pseudomonas aeruginosa and MDR Serratia marcescens.
In the ED, he was afebrile and normotensive and saturating appropriately on room air. He had a leukocytosis of 14.6, and MICHELLE with a creatinine of 1.9 (baseline appears to be around 1.0) and a potassium of 5.3, lactate was within normal limits,
urinalysis is positive for pyuria and bacteriuria. CT imaging of his abdomen and pelvis without contrast showed evidence of left pyelonephritis. He was started on antibiotics and IV fluids and admitted for further evaluation and management of
complicated UTI.
Gen: NAD, Awake and alert
Eyes: EOMI, PERRLA, no scleral icterus.
Neck: supple.
CV: Remains RRR, +S1/S2, no m/r/g.
Resp: CTAB anteriorly, no rales, wheezes, or rhonchi.
Abd: +BS, soft, NT, ND
Skin: No rashes.
Neuro: Remains CN 2-12 intact, non-focal.
Psych: Normal mood and affect.
09/04/24 09:42 Blood/Venous Blood Culture - Preliminary
No Growth in 72 hours- Final report to follow
09/02/24 16:53 Blood/Venous Blood Culture - Preliminary
No Growth in 4 days- Final report to follow
09/02/24 17:00 Blood/Venous Blood Culture - Final
Staphylococcus epidermidis
Additional testing on request
09/02/24 17:00 Blood/Venous Gram Stain - Final
09/02/24 12:24 Urine Urine Culture - Final
CT A/P 09/02/24: Prior cystectomy with urinary diversion and right lower quadrant urostomy and ileal conduit again seen. Mild left renal collecting system and left ureteral dilatation similar in caliber to prior study most likely nonobstructive.
However, there is moderate left and mild right perinephric stranding, left slightly greater in comparison to prior study, findings possibly on the basis of urinary tract infection, cannot exclude left pyelonephritis on this study without intravenous
contrast. Small bilateral simple renal cysts. Colonic diverticulosis.
Complicated UTI:
-h/o bladder CA s/p resection and ileal conduit which appears to be functioning appropriately
-prior UCxs grew Pseudomonas aeruginosa and MDR Serratia marcescens (sensitive to Cipro)
-initial BCx with staph epi (likely a contaminant), repeat BCx NG x 72 [address] A/P with possible L pyelonephritis
-cont Cefepime with plan to transition to PO Cipro (to complete 10-14 days) on discharge
-c/s ID for opinion on duration of abx
-s/p IVFs
-leukocytosis has resolved
Non-AG metabolic acidosis:
-Bicarb dropped to 12, now 19 after IV and oral bicarb
-likely related to ileal conduit
-cont PO bicarb at increased dose of 1300mg TID
MICHELLE: prerenal azotemia, resolved with IVFs
Hyperkalemia, resolved
Generalized weakness: due to complicated UTI, improving, PT/OT, will need SNF
Bipolar disorder: cont home bupropion/divalproex/quetiapine
DM2: a1c 7.2%, cont Metformin/Glimepiride, SSI/accuchecks
FULL/heparin
Medically cleared for d/c pending ID carline, case management aware.
Anticipated Discharge: Today
Subjective/Interval History
-
Date of Service: September 08, 2024
No new complaints.
Objective Data
-
Vital Signs:
Vital Signs
Temp Pulse Resp BP Pulse Ox
97.3 F 76 16 134/84 96
09/08/24 07:00 09/08/24 07:00 09/08/24 07:00 09/08/24 07:00 09/08/24 07:00
I&O
09/07/24 09/08/24 09/09/24
06:59 06:59 06:59
Intake Total 1320 / 1320 1820 / 1820
Output Total 1949 / 1949 1800 / 1800
Balance -630 / -630
--- NOTE | 2024-09-08 09:15 | VNURNOTE ---
Chart reviewed. Patient is current with [facility]. Appears that DC plan is SNF. [facility] remains available
[2024-09-08 10:54] LABS: Glucose - Point of Care 205 mg/dl (70-99)
--- NOTE | 2024-09-08 11:08 | CON.ID ---
Consultation
-
Date/Time Consultation Requested: September 08, 20248
Date/Time Consultation Performed: September 08, 2024 1110
Requesting Provider: Dr. Deuce Mclain
Performing Provider: Dr. Jen Perdue
Reason for Consultation: Complicated UTI
Chief Complaint / Past History
Chief Complaint
Weakness
History of Present Illness
74-year-old male with history of diabetes mellitus, bladder cancer status post cystectomy with ileal conduit who presented to the ED on September 02 due to 1 to 2-week history of progressive weakness, nausea, intermittent fevers.In ED white count 14.6,
urine analysis positive nitrite, 3+ leukocyte esterase, 6070 white blood cells. Urine culture more than 100,000 colony-forming units of mixed debbie. Patient is currently on cefepime day 6. White count is now normal. He reports feeling better.
Eating well. He denies flank pain. No diarrhea.
Past History
Additional Past Medical History:
DM
Seizure disorder
HTN
Dyslipidemia
Bipolar disorder
Bladder CA s/p cystoprostatectomy, ileal conduit
Additional Past Surgical History:
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
Allergy History:
Penicillins Allergy (Verified 03/23/24 11:59)
Hives; tolerated cefepime
Medications Reviewed: Yes
Current Antibiotics:
Cefepime d6
Social History
Tobacco: Former Smoker
Alcohol: None
Drug: None
Personal:
Family History
Family History: Not Pertinent
Review of Systems
Review of Systems
HEENT: Negative Sinus Problems or Headache
Respiratory: Negative Dyspnea or Cough
Gasteroenterology: Negative Diarrhea
Genital / Urological: Negative Flank Pain
Endocrine: Weakness
All systems: All other systems were reviewed and were negative
Vital Signs
Temp Pulse Resp BP Pulse Ox
97.3 F 76 16 134/84 96
09/08/24 07:00 09/08/24 07:00 09/08/24 07:00 09/08/24 07:00 09/08/24 08:45
Physical Exam
Physical Exam
Constitutional: No Acute Distress and Comfortable
Cardiovascular: Regular Rate and S1/S2
Pulmonary: Clear
Gastrointestinal: Soft, Non Tender and Non Distended
Genito-Urinary: Clear Urine (ileal conduit)
Extremities: Negative Edema
Neurological: Awake and Alert
Lab / Diagnostic Study Results
09/05/24 06:46
09/07/24 06:10
Abs Immat Gran (auto) 0.2 10^3/uL (0-0.05) H 09/05/24 06:46
Absolute Neuts (auto) 3.2 10^3/uL (1.4-6.5) 09/05/24 06:46
Absolute Lymphs (auto) 1.9 10^3/uL (1.2-3.4) 09/05/24 06:46
Absolute Monos (auto) 0.6 10^3/uL (0.1-0.6) 09/05/24 06:46
Absolute Basos (auto) 0.1 10^3/uL (0-0.2) 09/05/24 06:46
Immature Gran % 3.1 % (0-0.5) H 09/05/24 06:46
Neutrophils % 52.4 % (42.2-75.2) 09/05/24 06:46
Lymphocytes % 30.9 % (20.5-51.1) 09/05/24 06:46
Monocytes % 9.4 % (1.7-9.3) H 09/05/24 06:46
Eosinophils % 3.1 % (0-6) 09/05/24 06:46
Basophils % 1.1 % (0-2) 09/05/24 06:46
Lactic Acid Cancelled 09/02/24 20:45
Ur Squamous Epith Cells 0-2 /LPF (Few) 09/02/24 12:24
Microbiology Results
Micro:
09/04/24 09:42 Blood Culture - Preliminary
Blood/Venous No Growth in 4 days- Final report to follow
09/02/24 16:53 Blood Culture - Final
Blood/Venous No Growth - Final Report
09/02/24 17:00 Blood Culture - Final
Blood/Venous Staphylococcus epidermidis
Additional testing on request
Gram Stain - Final
09/02/24 12:24 Urine Culture - Final
Urine
09/02/24 CT a/p: Prior cystectomy with urinary diversion and right lower quadrant urostomy and ileal conduit again seen. Mild left renal collecting system and left ureteral dilatation similar in caliber to prior study most likely nonobstructive.
However, there is moderate left and mild right perinephric stranding, left slightly greater in comparison to prior study, findings possibly on the basis of urinary tract infection, cannot exclude left pyelonephritis on this study without intravenous
contrast.
Assessment / Plan
# Complicated UTI
# Leukocytosis resolved
# hx cystectomy with ileal conduit
- UCx : contaminated specimen
- Hx Pseudomonas and Serratia in urine
- Can transition cefepime (day6) to cipro 500mg po bid through 09/12/24.
# Conditions [employer]
DM
Seizure disorder
HTN
Dyslipidemia
Bipolar disorder
Bladder CA s/p cystoprostatectomy, ileal conduit
Care Review
Plan reviewed with: Physician (Dr. Mclain)
[2024-09-08] MEDS: NOVOLOG FLEXPEN-LOW RESISTANCE 2 UNITS SC (11:31)
--- NOTE | 2024-09-08 11:59 | CM ---
Pt is cleared for discharge to [facility] today. Family will drive.
PLAN: Transfer to [facility] today via family transport.
report [phone]
fax [phone]
[2024-09-08 12:10] LABS: Glucose - Point of Care 150 mg/dl (70-99)
[2024-09-08 12:47] LABS: Glucose - Point of Care 143 mg/dl (70-99)
--- NOTE | 2024-09-08 12:55 | PTCARENOTE ---
Called [facility] for report, no RN available to take report, gave # to return my call
--- NOTE | 2024-09-08 13:00 | W.DCSUMMARY ---
Discharge Summary
Discharge Data
Date of Admission: 09/02/24
Date of Discharge: 09/08/24
-
Pending Results: No
Hospital Course
Primary diagnoses:
Complicated urinary tract infection
Non-anion gap metabolic acidosis
Acute kidney injury
Secondary diagnoses:
h/o bladder cancer s/p resection and ileal conduit
Hyperkalemia
Generalized weakness
Bipolar disorder
Type 2 diabetes mellitus
Consultants:
Infectious disease
Imaging:
CT A/P 09/02/24: Prior cystectomy with urinary diversion and right lower quadrant urostomy and ileal conduit again seen. Mild left renal collecting system and left ureteral dilatation similar in caliber to prior study most likely nonobstructive.
However, there is moderate left and mild right perinephric stranding, left slightly greater in comparison to prior study, findings possibly on the basis of urinary tract infection, cannot exclude left pyelonephritis on this study without intravenous
contrast. Small bilateral simple renal cysts. Colonic diverticulosis.
74-year-old male who presented with chief complaints of weakness, intermittent fevers, vomiting as outlined in H&P done on admission. Hospital course by problem list:
Complicated UTI: The patient had a history of bladder cancer s/p resection and ileal conduit which was functioning appropriately. On admission the patient had a leukocytosis but was afebrile. Previously the patient had UCxs that grew Pseudomonas
aeruginosa and MDR Serratia marcescens (sensitive to Cipro). Patient was placed on cefepime. Initial blood cultures grew Staph epidermidis which was likely contaminant. Repeat blood cultures were no growth at the time of discharge. CT scan of
the abdomen pelvis above, notable for possible L pyelonephritis. Patient received IV fluids. His leukocytosis resolved. Patient was seen in consultation by infectious disease and transitioned to ciprofloxacin through 09/12/24.
Non-AG metabolic acidosis: Patient's bicarb dropped to 12, now 19 after IV and oral bicarb. This was likely related to ileal conduit. He was placed on oral bicarb with the dose increased to 1300mg TID.
MICHELLE: This was prerenal azotemia and resolved with IVFs.
Discharge Plan
-
Patient Disposition: Usp/SNF
Discharge Diagnosis/Procedures: Complicated urinary tract infection, non-anion gap metabolic acidosis, acute kidney injury
Condition: Good
Diet: Diabetic, Carb Controlled
Activity: With assistance
Driving Restrictions: Not until seen by your Dr
Blood Work: BMP and CBC in 1 week, script from PCP
Referrals:
UNKNOWN - PT NOT,INTERVIEWE [Family Provider] - in less than 1 week
Prescriptions:
New
sodium bicarbonate 650 mg Tablet
1,300 mg PO TID Qty: 0 0RF
polyethylene glycol 3350 17 gram Powder In Packet
17 g PO DAILYPRN PRN (Reason: constipation) Qty: 0 0RF
Continued
metformin 500 mg Tablet
500 mg PO BID
quetiapine 100 mg Tablet
100 mg PO HS
glimepiride 2 mg Tablet
2 mg PO BID
rosuvastatin 10 mg Tablet
10 mg PO DAILY
bupropion HCl 150 mg Tablet Extended Release 24 Hr
150 mg PO DAILY
tamsulosin [Flomax] 0.4 mg Capsule
0.4 mg PO DAILY
divalproex 500 mg tablet extended release 24 hr
1,500 mg PO DAILY
famotidine [Pepcid] 20 mg Tablet
20 mg PO DAILYPRN PRN (Reason: gerd)
vitamin B complex Tablet
1 tab PO DAILY
folic acid 0.8 mg Capsule
0.8 mg PO DAILY
ciprofloxacin HCl 500 mg Tablet
500 mg PO BID Qty: 0 0RF
Rx Instructions:
through 09/12/24
Discharge Orders:
Discharge Patient (As Directed); Ordered 09/08/24
Ordered By: Deuce Mclain
Discharge Date and Time
Print Language: SLOVENIAN
[2024-09-08 15:03] VITALS: BP 135/86
== END 2024-09-08 16:12 | DRG 698 ==
LOC: 4 EAST ACU 18:11
PROVIDERS: Emergency Medicine; Nurse Practitioner; ADMITTING PHYSICIAN Internal Medicine; ATTENDING PHYSICIAN Internal Medicine; EMERGENCY PHYSICIAN Emergency Medicine; OTHER PHYSICIAN Internal Medicine Infectious Disease
DX: T83.598A Infection and inflammatory reaction due to other prosthetic device, implant and graft in urinary system, initial encounter (principal); A41.9 Sepsis, unspecified organism; E87.20 Acidosis, unspecified; N12 Tubulo-interstitial nephritis, not specified as acute or chronic; N17.9 Acute kidney failure, unspecified; E87.5 Hyperkalemia; F31.9 Bipolar disorder, unspecified; E11.9 Type 2 diabetes mellitus without complications; Z87.891 Personal history of nicotine dependence; Z85.51 Personal history of malignant neoplasm of bladder; Y84.8 Other medical procedures as the cause of abnormal reaction of the patient, or of later complication, without mention of misadventure at the time of the procedure
CPT/HCPCS: 74176; 80048; 80053; 81003; 81015; 82962; 83036; 83605; 85025; 87040; 87086; 87154; 87205; 93005; 96361; 96374; 97163; 97166; 97530; 97535; 99285

== ENCOUNTER → 2024-09-15 11:29 | Outpatient (REF) | payer OTHER, SELFPAY ==
[2024-09-15 11:59] LABS: Hematocrit 30.7 % (39.0-52.0); Hemoglobin 9.7 g/dL (13.0-18.0); Mean Corp Hgb Conc. 31.6 g/dL (33.0-37.0); Mean Corpuscular Volume 95.6 fL (80.0-94.0); Nucleated Red Blood Cells % 0 % (-); Platelet Count 254 10^3/uL (130-400); Red Cell Dist. Width 15.4 % (11.5-14.5)
[2024-09-15 12:35] LABS: Blood Urea Nitrogen 23 mg/dl (9-20); Calcium 9.6 mg/dl (8.4-10.2); Carbon Dioxide 27 mmol/L (22-30); Chloride 109 mmol/L (98-107); Glucose 83 mg/dl (70-99); Potassium 4.6 mmol/L (3.5-5.1); Sodium 139 mmol/L (135-145); eGFR > 60.00
== END ==
LOC: OLABP 11:29
PROVIDERS: ATTENDING PHYSICIAN Family Medicine
DX: I10 Essential (primary) hypertension (principal); A41.9 Sepsis, unspecified organism; N17.9 Acute kidney failure, unspecified; E11.9 Type 2 diabetes mellitus without complications; F31.9 Bipolar disorder, unspecified; E87.5 Hyperkalemia
CPT/HCPCS: 36415; 80048; 85025

== ENCOUNTER 2024-11-18 20:32 | Inpatient (IN) | payer OTHER, SELFPAY ==
[2024-11-18 15:02] VITALS: BP 183/102
[2024-11-18 15:27] LABS: Hematocrit 33.0 % (39.0-52.0); Hemoglobin 10.5 g/dL (13.0-18.0); Mean Corp Hgb Conc. 31.8 g/dL (33.0-37.0); Mean Corpuscular Volume 92.2 fL (80.0-94.0); Nucleated Red Blood Cells % 0 % (-); Platelet Count 323 10^3/uL (130-400); Red Cell Dist. Width 14.7 % (11.5-14.5)
[2024-11-18 15:46] LABS: ALT (SGPT) 10 U/L (0-50); AST (SGOT) 17 U/L (17-59); Albumin 4.3 g/dl (3.5-5.0); Alkaline Phosphatase 93 U/L (38-126); Blood Urea Nitrogen 41 mg/dl (9-20); Calcium 10.4 mg/dl (8.4-10.2); Carbon Dioxide 18 mmol/L (22-30); Chloride 107 mmol/L (98-107); Glucose 176 mg/dl (70-99); Potassium 5.7 mmol/L (3.5-5.1); Sodium 137 mmol/L (135-145); Total Protein 8.8 g/dl (6.3-8.2); eGFR 21.74
[2024-11-18 18:00] VITALS: BP 149/75
--- NOTE | 2024-11-18 18:01 | ED.GENMED ---
History of Present Illness
<Sean Mathew PA-C - Last Filed: 11/18/24 21:15>
General
Chief Complaint: Urinary Symptoms
Source: patient, family and physician
Time Seen by Provider: 11/18/24 17:29
History of Present Illness
History of Present Illness:
74-year-old male with past medical history of bladder cancer, hypertension, hyperlipidemia, frequent urinary tract infections presenting to the emergency department at the request of his primary care provider for evaluation after he did outpatient
testing a few days ago, urinalysis came back with multidrug-resistant Serratia marcescens requiring IV antibiotics. Patient reports that he has not been feeling very well, persistently nauseous, mild bilateral back pain. He is unaware of any
fevers. Today he states that while he has not vomited he has been retching. He has not been on any antibiotics recently. He does note that about a month ago he had a stent placed at the [facility]. At present time patient is
without any other concern
Past History
<Sean Mathew PA-C - Last Filed: 11/18/24 21:15>
Past History
ED Past Medical History: Cancer, HTN, Hypercholesterolemia, NIDDM, Psychiatric and Other (Diverticulosis, depression, diabetes, bladder cancer, hypercholesterolemia)
ED Past Surgical History: Tonsilectomy and Urological (Ileostomy, TURP, bladder tumor removed)
Social History
Tobacco: Non-smoker
Alcohol: None
Drug: None
Personal:
Living: with family
Review of Systems
<Sean Mathew PA-C - Last Filed: 11/18/24 21:15>
Review of Systems
All Other Systems: ROS reviewed and negative except as documented in HPI and ROS
Phy Exam
<Sean Mathew PA-C - Last Filed: 11/18/24 21:15>
Physical Exam
Physical Exam:
GENERAL: Alert , in no apparent distress
EYE: clear conjunctiva b/l
HEAD: NCAT
ENT: o/p clr, mmm.
CARDIAC: Regular rate and rhythm .
LUNGS: Clear breath sounds bilaterally, no acute respiratory distress, no wheezes/rales/rhonchi
ABDOMEN: Soft, without focal tenderness, no r/g, no cvat
NEUROLOGICAL: Alert and oriented
SKIN: Warm and dry, skin intact.
MUSCULOSKELETAL: No edema, well perfused.
PSYCH: Normal and appropriate interaction.
Scores
<Sean Mathew PA-C - Last Filed: 11/18/24 21:15>
Heart Failure Risk
Heart Failure Risk Score: Not Applicable
Heart Score for Chest Pain Patients
STEMI patient?: Not applicable
Withdrawal Assessment of Alcohol
Withdrawal Assessment Completed?: Not applicable
Course
<Sean Mathew PA-C - Last Filed: 11/18/24 21:15>
Orders/Labs/Results
Orders:
Orders
11/18/24 15:11
Complete Blood Count/With Diff Urgent
Comprehensive Metabolic Panel Urgent
Lactic Acid Urgent
Blood Culture Urgent
KANDI Source: Blood/Venous
Specimen Description:
11/18/24 17:33
Electrocardiogram (*1) Urgent
Reason for Study: QTc Monitoring
EKG- Treatment ONCE
11/18/24 17:52
Urinalysis Reflex To Culture Urgent
Date Specimen was Collected: 11/18/24
Time Specimen was Collected: 17:43
Urine Microscopic Reflex Cult Urgent
Urine Culture Urgent
KANDI Source: U
Specimen Description:
Date Specimen was Collected: 11/18/24
Time Specimen was Collected: 17:43
11/18/24 17:59
CT Abd/pel Without Iv Or Oral Urgent
Comment:
Reason For Exam: renal failure, UTI, back pain
11/18/24 18:07
0.9% Sodium Chloride 1000 ml [Nss] 1,000 ml IV BOLUS
11/18/24 18:32
Cefepime HCl [Maxipime] 2,000 mg IV NOW STA
11/18/24 18:59
Sterile Water [Sterile Water For Injection] 10 ml .ROUTE .STK-MED ONE
11/18/24 20:06
Admit/Transfer Patient As Directed
Co-Sign Provider:
Level of Care: Inpatient admission
Assign to:: Medical/Surgical
Physician / Group: Ori
Diagnosis: complicated UTI
Reason for Hospitalization: complicated UTI, ureteral obstruction
Expected length of stay greater than two midnights?: Yes
ELOS- Estimated Length of Stay in days: 2
I certify the patient meets the requirements for IP care: Yes
PRN Pain Medication Management As Directed
May give lesser potent ordered pain med per pt: Yes
preference::
Protocol:: Medication orders for pain may be administered in a
manner that supports deferring to patient preference
when the pt is:
- Requesting an ordered lesser potent pain medication.
Least to most potent pain medications are defined
as: acetaminophen < NSAID < tramadol < opioids
(morphine, oxycodone, hydromorphone).
- Requesting a lesser dose of the same medication IF
ORDERED.
- Requesting a less intrusive route of administration
if both routes are prescribed by the provider (PO <
IV).
11/18/24 20:09
Code Status As Directed
Resuscitation Status: Full Code
11/18/24 20:15
Sodium Zirconium Cyclosilicate [Lokelma] 5 gram PO NOW STA
Abnormal Lab Results
11/18/24 11/18/24
15:11 17:52
WBC 11.0 H 10^3/uL
(4.8-10.8)
RBC 3.58 L 10^6/uL
(4.70-6.10)
Hgb 10.5 L g/dL
(13.0-18.0)
Hct 33.0 L %
(39.0-52.0)
MCHC 31.8 L g/dL
(33.0-37.0)
RDW 14.7 H %
(11.5-14.5)
Abs Immat Gran (auto) 0.1 H 10^3/uL
(0-0.05)
Absolute Neuts (auto) 8.0 H 10^3/uL
(1.4-6.5)
Absolute Monos (auto) 0.8 H 10^3/uL
(0.1-0.6)
Lymphocytes % 15.8 L %
(20.5-51.1)
Potassium 5.7 H mmol/L
(3.5-5.1)
Carbon Dioxide 18 L mmol/L
(22-30)
BUN 41 H mg/dl
(9-20)
Creatinine 2.9 H mg/dL
(0.7-1.3)
Glucose 176 H mg/dl
(70-99)
Calcium 10.4 H mg/dl
(8.4-10.2)
Total Protein 8.8 H g/dl
(6.3-8.2)
Ur Occult Blood Reflex 3+ A
(Negative)
Urine Nitrite (Reflex) Positive A
(Negative)
Leukocyte Esterase Rfl 3+ A
(Negative)
Urine RBC 21-25 A /HPF
(0-2)
Urine WBC (Reflex) 60-70 A /HPF
(0-5)
Urine Bacteria (Reflex) Many A
(Negative)
Urine Albumin (Reflex) 3+ A
(Neg - Trace)
11/18/24 15:11
11/18/24 15:11
Vital Signs
Initial and Last Documented VS:
Initial Vital Signs
Temp Pulse Resp BP Pulse Ox
98.5 F 95 20 183/102 98
11/18/24 15:02 11/18/24 15:02 11/18/24 15:02 11/18/24 15:02 11/18/24 15:02
Last Documented Vital Signs
Temp Pulse Resp BP Pulse Ox
98.5 F 80 12 157/70 98
11/18/24 15:02 11/18/24 19:30 11/18/24 19:30 11/18/24 19:00 11/18/24 19:30
<Christ Rodriguez MD - Last Filed: 11/18/24 20:44>
Orders/Labs/Results
Orders:
Orders
11/18/24 15:11
Complete Blood Count/With Diff Urgent
Comprehensive Metabolic Panel Urgent
Lactic Acid Urgent
Blood Culture Urgent
KANDI Source: Blood/Venous
Specimen Description:
11/18/24 17:33
Electrocardiogram (*1) Urgent
Reason for Study: QTc Monitoring
EKG- Treatment ONCE
11/18/24 17:52
Urinalysis Reflex To Culture Urgent
Date Specimen was Collected: 11/18/24
Time Specimen was Collected: 17:43
Urine Microscopic Reflex Cult Urgent
Urine Culture Urgent
KANDI Source: U
Specimen Description:
Date Specimen was Collected: 11/18/24
Time Specimen was Collected: 17:43
11/18/24 17:59
CT Abd/pel Without Iv Or Oral Urgent
Comment:
Reason For Exam: renal failure, UTI, back pain
11/18/24 18:07
0.9% Sodium Chloride 1000 ml [Nss] 1,000 ml IV BOLUS
11/18/24 18:32
Cefepime HCl [Maxipime] 2,000 mg IV NOW STA
11/18/24 18:59
Sterile Water [Sterile Water For Injection] 10 ml .ROUTE .STK-MED ONE
11/18/24 20:06
Admit/Transfer Patient As Directed
Co-Sign Provider:
Level of Care: Inpatient admission
Assign to:: Medical/Surgical
Physician / Group: Ori
Diagnosis: complicated UTI
Reason for Hospitalization: complicated UTI, ureteral obstruction
Expected length of stay greater than two midnights?: Yes
ELOS- Estimated Length of Stay in days: 2
I certify the patient meets the requirements for IP care: Yes
PRN Pain Medication Management As Directed
May give lesser potent ordered pain med per pt: Yes
preference::
Protocol:: Medication orders for pain may be administered in a
manner that supports deferring to patient preference
when the pt is:
- Requesting an ordered lesser potent pain medication.
Least to most potent pain medications are defined
as: acetaminophen < NSAID < tramadol < opioids
(morphine, oxycodone, hydromorphone).
- Requesting a lesser dose of the same medication IF
ORDERED.
- Requesting a less intrusive route of administration
if both routes are prescribed by the provider (PO <
IV).
11/18/24 20:09
Code Status As Directed
Resuscitation Status: Full Code
11/18/24 20:15
Sodium Zirconium Cyclosilicate [Lokelma] 5 gram PO NOW STA
Abnormal Lab Results
11/18/24 11/18/24
15:11 17:52
WBC 11.0 H 10^3/uL
(4.8-10.8)
RBC 3.58 L 10^6/uL
(4.70-6.10)
Hgb 10.5 L g/dL
(13.0-18.0)
Hct 33.0 L %
(39.0-52.0)
MCHC 31.8 L g/dL
(33.0-37.0)
RDW 14.7 H %
(11.5-14.5)
Abs Immat Gran (auto) 0.1 H 10^3/uL
(0-0.05)
Absolute Neuts (auto) 8.0 H 10^3/uL
(1.4-6.5)
Absolute Monos (auto) 0.8 H 10^3/uL
(0.1-0.6)
Lymphocytes % 15.8 L %
(20.5-51.1)
Potassium 5.7 H mmol/L
(3.5-5.1)
Carbon Dioxide 18 L mmol/L
(22-30)
BUN 41 H mg/dl
(9-20)
Creatinine 2.9 H mg/dL
(0.7-1.3)
Glucose 176 H mg/dl
(70-99)
Calcium 10.4 H mg/dl
(8.4-10.2)
Total Protein 8.8 H g/dl
(6.3-8.2)
Ur Occult Blood Reflex 3+ A
(Negative)
Urine Nitrite (Reflex) Positive A
(Negative)
Leukocyte Esterase Rfl 3+ A
(Negative)
Urine RBC 21-25 A /HPF
(0-2)
Urine WBC (Reflex) 60-70 A /HPF
(0-5)
Urine Bacteria (Reflex) Many A
(Negative)
Urine Albumin (Reflex) 3+ A
(Neg - Trace)
11/18/24 15:11
11/18/24 15:11
Vital Signs
Initial and Last Documented VS:
Initial Vital Signs
Temp Pulse Resp BP Pulse Ox
98.5 F 95 20 183/102 98
11/18/24 15:02 11/18/24 15:02 11/18/24 15:02 11/18/24 15:02 11/18/24 15:02
Last Documented Vital Signs
Temp Pulse Resp BP Pulse Ox
98.5 F 80 12 157/70 98
11/18/24 15:02 11/18/24 19:30 11/18/24 19:30 11/18/24 19:00 11/18/24 19:30
<Sean Mathew PA-C - Last Filed: 11/18/24 21:15>
MDM/Problems Addressed
Differential Diagnosis Includes:
Cystitis
Pyelonephritis
Prostatitis
Infected kidney stone
Acute kidney injury
Electrolyte imbalance
MDM/Problems Addressed:
74-year-old male presenting to the ER at the request of primary care provider for multidrug-resistant Serratia urinary tract infection. Unfortunately patient does not currently have the urine culture but is working on obtaining these results. I
also notified the primary care provider in hopes to obtain the culture report so as to initial proper antibiotics. Labs were initiated on arrival which show an acute kidney injury with a creatinine of 2.9, BUN of 41 and a bicarb of 18. Potassium
also elevated at 5.7. EKG without any ectopy or ischemia. Cultures ordered. Patient will require admission for further evaluation and treatment
Chronic conditions affecting care: Cancer
Acute Exacerbation and/or Progression of Chronic Illness: Cancer
<Sean Mathew PA-C - Last Filed: 11/18/24 21:15>
*Radiology
Radiology exam reviewed: radiology read reviewed
*Pulse Oximetry
SaO2: 98
Oxygen Mode of Delivery: Room air
Patient hypoxic: no
*EKG
Heart Rate: 80
Rate: normal
Rhythm: sinus
[place]: left axis deviation
Ischemia: no ischemia
*Trash Man Interpretation
Rate: normal
Heart Rate: 85
Rhythm: sinus
*Critical Care Note
Total Time (30-74mins, 75-104mins- exclusive of procedures): Not Applicable
Data Reviewed
Review of Other/Old Records Reveals: Labs and Records
<Sean Mathew PA-C - Last Filed: 11/18/24 21:15>
Patient Management
Discussion with other providers: Hospitalist and [employer] Laborer
Escalation/DeEscalation of care consider admission/obs:
Patient CT scan unfortunately shows a new soft tissue mass within the right lower quadrant of the abdomen which is causing compression/obstruction of the right ureter causing moderate right hydroureteronephrosis. Given his acute kidney injury
suspect that patient is having complications on the left side as well despite his stent. Notified hospitalist team who accepts for continued evaluation and treatment. Urology is also aware who will see the patient in consult tomorrow morning,
patient will likely need IR consultation for percutaneous nephrostomy tube.
ED Attending Note
<Sean Mathew PA-C - Last Filed: 11/18/24 21:15>
-
Portions of this chart may have been created with voice recognition software.� Occasional wrong word or��sound alike� substitutions may have occurred due to the inherent limitations of voice recognition software.
<Christ Rodriguez MD - Last Filed: 11/18/24 20:44>
ED Attending Note
Patient seen and examined by attending physician: Yes
ED Attending Note:
I have seen and evaluated the patient with a [id number] encounter. I have spoken to the advance practicer provider and involved in the medical history, the physical exam, medical decision making.
Evaluation and management service: agree unless noted differently below.
Results interpretation: agree unless noted differently below.
Focused HPI: 74-year-old male with past medical history as documented notable for bladder tumor status post resection with urostomy/ileal conduit who presents to the ER sent in by his primary doctor due to drug-resistant Serratia on outpatient urine
culture. He did notably have recent ureteral stent last month at outside hospital. Main complaint is back pain, no other acute complaints noted.
Physical exam: Awake and alert not in distress. Hypertensive but otherwise normal vitals. Abdomen soft, nontender. Urostomy bag noted with dark urine in the bag.
Medical Decision Makin-year-old male with history as noted ostensibly sent in for multidrug-resistant bacteria on outpatient urinalysis/culture. Labs were sent off including a CBC which showed a leukocytosis and CMP which showed acute kidney
injury with a creatinine of 2.9 from a prior baseline of 1.1. Urinalysis is indeed positive for infection. Treat with cefepime based on outpatient culture results provided by primary doctor. Was sent for a CT abdomen given new renal injury to
rule out obstructive cause�unfortunately this showed new mass in the right abdomen causing right ureteral obstruction and hydronephrosis. Will admit for continued management and specialist consultation.
Discharge Plan
Departure
Patient Disposition: Admit
Date of Disposition: 11/18/24
Time of Disposition: 19:33
Presentation/result/management discussed w/ accepting MD/DO: Hospitalist
Discharge Problem:
Complicated urinary tract infection, MICHELLE (acute kidney injury)
Interventions
Interventions:
*Risk Screen - Suicide Last Done: 11/18/24 18:52
*General Assessment Last Done: 11/18/24 15:02
*Neglect/Abuse Screening Last Done: 11/18/24 18:52
*ED- Fall Risk Assessment Last Done: 11/18/24 17:59
*ED COVID-19 Vaccine History Last Done: 11/18/24 17:59
*Nursing Disposition Last Done: 11/18/24 21:10
ED-Male Genitourinary Assessment Last Done: 11/18/24 17:58
Discharge Date and Time
Discharge Date/Time: 11/18/24 21:11
[2024-11-18 18:07] LABS: Urine Character Cloudy (Clear)
[2024-11-18 18:20] LABS: Urine Squamous Cell 0-2 /LPF (Few)
[2024-11-18 18:21] LABS: Urine Red Blood Cell 21-25 /HPF (0-2); Urine White Cell 60-70 /HPF (0-5)
[2024-11-18 18:36] VITALS: BP 186/74
[2024-11-18 19:00] VITALS: BP 157/70
[2024-11-18] MEDS: NSS 1000 IV (19:01)
[2024-11-18] MEDS: MAXIPIME 2000 MG IV (19:01)
--- NOTE | 2024-11-18 19:49 | HPS.HSE ---
Family Physician
-
Family Physician: NOT KNOW UNKNOWN - PT DOES
Chief Complaint
-
Urinary symptoms
History of Present Illness
This is a 74-year-old male with past medical history significant for bladder cancer status post surgical resection, bipolar, diabetes, BPH history of MICHELLE, with current resistant urinary tract infections will presents to the emergency department with
outpatient record showing UTI with MDR Serratia.
Patient reports that after her his surgical bladder resection and ileal neobladder with ostomy he has had recurrent urinary tract infections. He states that he usually gets urine testing and a few weeks ago he got outpatient urine testing which
showed ongoing positive Serratia marcescens that was not sensitive to oral outpatient antibiotics. He was requested to come into the emergency department. Patient himself reports mild symptoms but did not blood various ureter and little bit of
sediments in the ostomy bag. He reports feeling chills at this moment but denies having chills or fevers at home. He denies any nausea or vomiting. He denies any abdominal pain. He is not on any chemo. He has had a prior stent in the left
ureter.
Here in the emergency department he was afebrile, blood pressure was 157/70 with a pulse of 80 and was satting 98% on room air.
He had a white count of 11.0 hemoglobin and platelets were normal. His potassium was 5.7, his creatinine is 2.9 with a BUN of 41. Glucose was 176. Bicarb was 18. ECG shows a normal sinus rhythm at [address] or T wave changes. No
hyperkalemic changes.
UA was markedly positive with nitrites leukocyte esterase and many bacteria.
CT of the abdomen pelvis showing new soft tissue mass in the right lower quadrant of the abdomen concerning for recurrent disease, measuring approximately 4.4 x 4.0 x 5.4 cm in size. Obstruction of the distal right ureter at this level. Upstream
moderate right hydroureteronephrosis.
Previous cystoprostatectomy, right lower quadrant urostomy and ileal conduit.
Left ureteral stent in place.
Mild compression fracture at the T12 superior endplate, age indeterminate but new compared to the CT abdomen/pelvis from 09/02/2024 suggesting an acute or subacute fracture.
Large amount of stool in the rectum concerning for constipation/fecal impaction.
Medical History
Past Medical History
Past Medical History: Reports Other
Additional Past Medical History:
bladder cancer (status post bladder resection with ileal conduit at [facility] 06/2023), NIDDM, bipolar disorder
Past Surgical History: Reports Other
Additional Past Surgical History:
bladder resection with ileal conduit at [facility] 06/2023, skin cancer excision, left hand surgery after accidental amputation of third digit
Social History
Alcohol: Occasional
Drug: None
Personal:
Living: With Family
Family History
Family History: Not pertinent
Allergies / Home Medications
Allergies reflects when Allergies were last updated in [facility].
Home Medications with original date entered in [facility]
Allergy/Medication List:
Allergies
Allergy/AdvReac Type Severity Reaction Status Date / Time
Penicillins Allergy Hives; Verified 03/23/24 11:59
tolerated
cefepime
Home Medications
bupropion HCl 150 mg 24 hr tablet, extended release 150 mg PO DAILY Depression 12/06/23
glimepiride 2 mg tablet 2 mg PO BID Diabetes 12/06/23
metformin 500 mg tablet 500 mg PO BID Diabetes 12/06/23
quetiapine 100 mg tablet 100 mg PO HS Sleep 12/06/23
rosuvastatin 10 mg tablet 10 mg PO DAILY High Cholesterol 12/06/23
ciprofloxacin HCl 500 mg tablet 500 mg PO BID 09/02/24
divalproex 500 mg tablet,extended release 24 hr 1,500 mg PO DAILY 09/02/24
famotidine 20 mg tablet (Pepcid) 20 mg PO DAILYPRN PRN gerd 09/02/24
folic acid 0.8 mg capsule 0.8 mg PO DAILY 09/02/24
tamsulosin 0.4 mg capsule (Flomax) 0.4 mg PO DAILY 09/02/24
vitamin B complex 1 tab PO DAILY 09/02/24
Review of Systems
-
History Source: Patient
A 12 point ROS was completed and negative except as noted: Yes
Constitutional: Reports Fatigue and Chills
EENT: Reports No Symptoms
Respiratory: Reports No Symptoms
Cardiac: Reports No Symptoms
Abdomen/GI: Reports No Symptoms
: Reports No Symptoms
Musculoskeletal: Reports No Symptoms
Skin: Reports No Symptoms
Neurological: Reports No Symptoms
Endocrine: Reports No Symptoms
Hematologic/Lymphatic: Reports No Symptoms
Psych: Reports No Symptoms
Physical Exam
Vital Signs
Vital Signs
Temp Pulse Resp BP Pulse Ox
98.5 F 80 12 157/70 98
11/18/24 15:02 11/18/24 19:30 11/18/24 19:30 11/18/24 19:00 11/18/24 19:30
Physical Exam
General: Well Developed, Well Nourished and No Apparent Distress
HEENT: NormoCephalic, Moist mucous membranes and Atraumatic
Respiratory: Clear
Cardiac: S1/S2 and Regular Rhythm; No Murmur or Rub
GI: Soft, Non Tender, Non Distended, Normal Bowel Sounds and Ostomy; No Organomegaly
Rectal: Deferred by Provider
Musculoskeletal: No Clubbing, No Cyanosis and No Edema
Skin: No Rash
Neuro: AO x 3 and Nonfocal/grossly intact
Laboratory Results
-
11/18/24 15:11
11/18/24 15:11
Laboratory Results
Lactic Acid Cancelled 11/18/24 21:45
Total Bilirubin 0.6 mg/dl (0.2-1.3) 11/18/24 15:11
AST 17 U/L (17-59) 11/18/24 15:11
ALT 10 U/L (0-50) 11/18/24 15:11
Alkaline Phosphatase 93 U/L (38-126) 11/18/24 15:11
Data Reviewed
-
CT Scan: Report Reviewed by me
Medical Tests (Nuc Med, Echo, EKG etc): Image Personally Visualized and interpreted
Lab Data: Labs Reviewed by me
Old Records: Reviewed
Impression/Plan
-
IMPRESSION:
Complicated urinary tract infection in patient with history of bladder cancer status post cystoprostatectomy with ileal conduit and prior left ureteral stent who presents to the emergency department with feeling feverish and found to have a positive
UA with history of MDR in the past. Unfortunately during his initial evaluation and is found to have MICHELLE with a creatinine of 2.9 and a BUN of 41 and potassium of 5.7. He also has newfound obstruction with a soft tissue mass in the right lower
quadrant of the abdomen concerning for recurrent disease and causing obstruction of the distal right ureter with moderate right hydroureteronephrosis. Is afebrile here hemodynamically stable with a peripheral WBC of 11.0 and normal lactic acid
level.
PLAN:
1. Complicated urinary tract infection without sepsis at this time
- Admit to [facility]
-N.p.o. after midnight
-Discussed with urology IR consultation for right urostomy tube placement
-Blood cultures, urine cultures
- Based on prior outpatient cultures and our cultures here will treat with cefepime
- Monitor ins and outs
- Hold blood thinners
2. MICHELLE -suspect from the hydronephrosis 2/2 intraabdominal mass.
- Avoid nephrotoxic
- Renal dose medication
- Will restart oral bicarb to avoid worsening acidosis
- Hold metformin
- 1 dose of lokelma here
- urology consultation for eval of mass
3. Constipation
- Will start oral laxatives
4. DM2
- Hold metformin
- Continue glimepiride
- Sliding scale insulin
5. Bipolar
- Continue with Depakote
- Continue bupropion
DVT prophylaxis�SCDs for now
CODE STATUS�full code
[2024-11-18 21:34] VITALS: BP 170/82
--- NOTE | 2024-11-18 21:40 | PTCARENOTE ---
Pt arrived to room 414-01. Pt transferred from stretcher to bed. Pt AOOx3, VSS. Pt oriented to room, call turcios placed within reach.
[2024-11-18 22:22] LABS: Glucose - Point of Care 220 mg/dl (70-99)
[2024-11-18 22:29] VITALS: BMI 23.3
[2024-11-18] MEDS: TYLENOL 650 MG PO (22:30)
[2024-11-18] MEDS: SODIUM BICARBONATE 1300 MG PO (22:31)
[2024-11-18] MEDS: SEROQUEL 100 MG PO (22:31)
[2024-11-18] MEDS: LR 1000 IV (22:38)
[2024-11-18 23:15] VITALS: BP 141/70
[2024-11-19] VITALS (15 sets, daily range): BP systolic 86–188; BP diastolic 78–99
[2024-11-19] MEDS: LOKELMA 5 GRAM PO (00:49)
[2024-11-19] MEDS: STERILE WATER FOR INJECTION 10 ML IV ×2 (05:16→17:19)
[2024-11-19] MEDS: MAXIPIME 1000 MG IV ×2 (05:16→17:19)
[2024-11-19 05:55] LABS: Glucose - Point of Care 131 mg/dl (70-99)
--- NOTE | 2024-11-19 07:14 | W.PN.HOSP.TC ---
Today's Communication/Plan
-
NPO for nephrostomy tube
IVF supplementation
potassium restricted diet when diet resumed
glycemic control
abx as per ID
bowel regimen, once suppository
monitor renal function
Assessment / Plan
Assessment / Plan
Physical Exam
General: No acute distress, appears comfortable at this time
HEENT: NormoCephalic, Moist mucous membranes and Atraumatic
Respiratory: Clear
Cardiac: S1/S2 and Regular Rhythm; No Murmur or Rub
GI: Soft, Non Tender, Distended, Bowel sounds present, Urostomy bag in place
Musculoskeletal: No Clubbing, No Cyanosis and No Edema
Skin: No Rash
Neuro: AO x 3 conversant coherent
Psych: calm
74M Complicated urinary tract infection in patient with history of bladder cancer status post cystoprostatectomy ileal conduit and prior left ureteral stent who presents to the emergency department with feeling feverish and found to have a positive
UA with history of MDR in the past. Unfortunately was found to have MICHELLE with a creatinine of 2.9 and a BUN of 41 and potassium of 5.7. He also has newfound obstruction with a soft tissue mass in the right lower quadrant of the abdomen concerning
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 Otherwise VSS afebrile non-septic appearing.
PLAN:
# Complicated urinary tract infection without sepsis at this time
-NPO pending right nephrostomy placement
-IR eval appreciated
-ID eval appreciated cont Cefipime renally dosed
-Urology eval appreciated
-Blood cultures, urine cultures NGTD
- Monitor ins and outs
# MICHELLE -suspect from the hydronephrosis 2/2 intraabdominal mass.
#Hyperkalemia
- Avoid nephrotoxic
- Renal dose medication
- oral bicarb supplementation to avoid worsening acidosis
- Hold metformin
- received 1 dose of lokelma so far
- potassium restricted diet when diet resumed
- IVF supplementation
# Constipation
-bowel regimen
-once suppository
# DM2
- Hold metformin
- Continue glimepiride
- Sliding scale insulin
# Bipolar
- Continue with Depakote
- Continue bupropion
DVT prophylaxis�SCDs for now
CODE STATUS�full code
I spent a total of 50 minutes with the patient or on the floor. More than 50% of this time involved counseling and coordination of care.
Anticipated Discharge: 24 - 48 hours
Subjective/Interval History
-
Date of Service: November 19, 2024
Seen and examined at bedside in no acute distress resting comfortably in bed. Reports back pain with exertion, comfortable at rest. Constipation also perists.
Objective Data
-
Labs:
Laboratory Results
11/19/24
06:00
WBC Pending
Hgb Pending
Hct Pending
Plt Count Pending
Sodium Pending
Potassium Pending
Chloride Pending
Carbon Dioxide Pending
BUN Pending
Creatinine Pending
Glucose Pending
Calcium Pending
Vital Signs:
Vital Signs
Temp Pulse Resp BP Pulse Ox
97.3 F 92 16 141/70 97
11/18/24 23:15 11/18/24 23:15 11/18/24 23:15 11/18/24 23:15 11/18/24 23:15
I&O
11/18/24 11/19/24 11/20/24
06:59 06:59 06:59
Intake Total 240 / 240
Output Total 500 / 500
Balance -260 / -260
[2024-11-19] MEDS: NOVOLOG FLEXPEN-LOW RESISTANCE SC ×3 (07:59→17:10)
[2024-11-19] MEDS: DEPAKOTE ER (24 HR RELEASE) 1500 MG PO (08:00)
[2024-11-19] MEDS: FOLVITE 1 MG PO (08:00)
[2024-11-19] MEDS: AMARYL PO ×2 (08:00→08:06)
[2024-11-19] MEDS: SODIUM BICARBONATE 1300 MG PO ×2 (08:00→17:45)
[2024-11-19] MEDS: WELLBUTRIN XL (24 hour extended release) 150 MG PO (08:01)
[2024-11-19] MEDS: TYLENOL 650 MG PO ×2 (08:08→20:59)
[2024-11-19] MEDS: SENOKOT-S 1 TABLET PO ×2 (08:08→20:50)
--- NOTE | 2024-11-19 09:13 | VNURNOTE ---
Chart reviewed.� Patient is current with [facility] nursing.� Will continue to follow hospital course and DC plans.
[2024-11-19 09:40] LABS: Hematocrit 29.2 % (39.0-52.0); Hemoglobin 9.3 g/dL (13.0-18.0); Mean Corp Hgb Conc. 31.8 g/dL (33.0-37.0); Mean Corpuscular Volume 95.4 fL (80.0-94.0); Platelet Count 246 10^3/uL (130-400); Red Cell Dist. Width 14.9 % (11.5-14.5)
[2024-11-19 09:43] LABS: INR 1.03; PT 14.0 Sec (11.4-14.6)
--- NOTE | 2024-11-19 09:58 | W.PN.URO.CBU ---
Today's Communication / Plan
-
rt perc tube
Assessment / Plan
-
rt uretral obstruction and MDRO with stent MICHELLE WILL RECOMEND VIGOROUS HYDRATION AND RT PER TUBE SPOKE WITH QASIM Yaquelin WG=ROSE WITH PLAN AND REQUETS DR JUÁREZ u drew urology be included aware of soft tissue mass and possiibe need to
remove left stent and replace for now if iv abs and rt perc tube and serial tori profiles
Diagnosis
-
Date of Service: November 19, 2024
-
Patient Diagnosis:BCG REFRACTORY CIS BLADDER UNDERWENT ILEAL LOOP [employer] APPOX 1 YR AGO Had left ueteral obstruction and had stent placed creatinine summer 2024 1.1 now bilat back pain and urine from ileal loop with MDRO
Serratia but of concern creatinine 2.9 and new rt hydro with rt ureter obstructed by soft tissue mass not seen in September no colic
Post Op Day:
Subjective
-
back pain
Objective
-
Vital Signs
Temp Pulse Resp BP Pulse Ox
97.9 F 85 18 171/80 97
11/19/24 07:42 11/19/24 07:42 11/19/24 07:42 11/19/24 07:42 11/19/24 07:42
Intake and Output
11/18/24 11/19/24 11/20/24
06:59 06:59 06:59
Intake Total 240 / 240
Output Total 500 / 500
Balance -260 / -260
Intake:
Oral fluids 240 / 240
Output:
Urinary Drain Output (Total) 500 / 500
Right Nephrostomy 500 / 500
Laboratory Results
11/19/24 08:37
Review of Systems
-
: Flank Pain
Physical Exam
-
General - well developed, well nourished, no acute distress
Chest - clear bilaterally
Abdomen - soft, non-tender, positive bowel sounds, no CVAT, no incisional pain or distention has stoma rlq with dtent
Genitalia - no
Skin - warm & dry with no rash
Neuro - AOx3, no motor deficits
Extremities - no clubbing, no cyanosis, no edema
Incision - clean, dry
Dressing - clean, dry, intact
Care Review
Data Reviewed
Discussed with: Hospitalist, Nursing and Family
CT Scan: Image Pers Reviewed
[2024-11-19 10:46] LABS: Blood Urea Nitrogen 38 mg/dl (9-20); Calcium 9.9 mg/dl (8.4-10.2); Carbon Dioxide 22 mmol/L (22-30); Chloride 109 mmol/L (98-107); Estimated Creatinine Clearance 20 ml/min; Glucose 127 mg/dl (70-99); Magnesium 2.0 mg/dl (1.6-2.3); Potassium 5.6 mmol/L (3.5-5.1); Sodium 138 mmol/L (135-145); eGFR 21.74
[2024-11-19 12:09] LABS: Glucose - Point of Care 126 mg/dl (70-99)
--- NOTE | 2024-11-19 12:12 | CM ---
Patient seen bedside, initial assessment completed. Patient is a 74-year-old male with past medical history significant for bladder cancer status post surgical resection, bipolar, diabetes, BPH history of MICHELLE, with current resistant urinary tract
infections will presents to the emergency department with outpatient record showing UTI with MDR Serratia.
Patient resides w/ spouse in a 2STH, 3 steps to enter from the outside. Patient is independent w/ RW, independent w/ ADLs and personal care. Patient has a tub grab bar and shower chair. Patient was prev at [facility] for rehab in September. Patient is
current w/ [facility].
Address, point of contact and insurance verified
PCP: Black Graham
Pharmacy: [facility]
Plan: Anticipating home, MELISSA w/ [facility]
[2024-11-19] MEDS: LR IV (12:44)
[2024-11-19] MEDS: LIDOCAINE 4% PATCH 2 PATCH TOPICAL (12:48)
[2024-11-19] MEDS: NSS 1000 IV ×2 (12:48→21:55)
--- NOTE | 2024-11-19 12:48 | CON.ID ---
Consultation
-
Date/Time Consultation Requested: 11/19/2024 0810
Date/Time Consultation Performed: 11/19/2024 1240
Requesting Provider: Dr. Luevano
Performing Provider: Dr. Chaudhary
Reason for Consultation: Complicated urinary tract infection
Chief Complaint / Past History
History of Present Illness
Wesley Hernandez is a 74-year-old man with a significant past medical history of bladder CA (s/p cystoprostatectomy, ileal conduit) being evaluated at the request of Dr. Luevano in regards to a complicated urinary tract infection. History is obtained
from chart review, patient interview.
The patient is known to the Infectious Diseases service, having been seen in September 2024 for a complicated urinary tract infection. At that time, cultures revealed growth of Pseudomonas and Serratia. The patient improved during his hospitalization
and ultimately was discharged on 09/08, to continue with ciprofloxacin through 09/12/2024)
The patient presents back to the ER on 11/18 at the request of his PCP for evaluation of an outpatient urinalysis and recovery of a MDRO Serratia marcescens on culture. The patient reported at admission that he had not been feeling well, with
persistent nausea and mild bilateral back pain. He denied any fevers.
In the ER he was found to have a low-grade white count, and found to have MICHELLE. CT imaging of the abdomen showed a new soft tissue mass in the right lower quadrant, with obstruction of the distal right ureter and moderate right
hydroureteronephrosis. Infectious Diseases is asked to comment on further antimicrobial therapy management. Patient denies any fevers or chills prior to admission, although he reports occasional flank pain. He denies any difficulty around his
urostomy.
Past History
Additional Past Medical History:
DM
Seizure disorder
HTN
Dyslipidemia
Bipolar disorder
Bladder CA
Additional Past Surgical History:
Cystoprostatectomy
Ileal conduit
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
Allergy History:
Penicillins Allergy (Verified 11/18/24 15:02)
Hives; tolerated cefepime
Medications Reviewed: Yes
Current Antibiotics:
Cefepime 1 gm IV q.12 hours
Social History
Tobacco: Former Smoker
Alcohol: None
Drug: None
Personal:
Family History
Family History: Not Pertinent
Review of Systems
Vital Signs
Temp Pulse Resp BP Pulse Ox
97.9 F 85 18 171/80 97
11/19/24 07:42 11/19/24 07:42 11/19/24 07:42 11/19/24 07:42 11/19/24 07:42
Physical Exam
Physical Exam
Constitutional: No Acute Distress, Comfortable and Non-toxic
Head: Normocephalic
Eyes: Pupils Equal, No Conjunctival Hemorrhage and Sclera Anicteric
Oral: No Thrush and No Ulcers
Cardiovascular: Regular Rate and S1/S2; Negative S3/S4
Pulmonary: Clear; Negative Wheezes, Rales or Rhonchi
Gastrointestinal: Soft, Non Tender, Non Distended, Normal Bowel Sounds, No Rebound and No Guarding
Genito-Urinary: Other (Urostomy bag in place.)
Extremities: Negative Edema, Cyanosis or Erythema
Skin: Warm and Dry; Negative Rash
Neurological: Awake and Alert
Psychological: Calm
Lab / Diagnostic Study Results
11/19/24 08:37
11/19/24 08:37
Abs Immat Gran (auto) 0.1 10^3/uL (0-0.05) H 11/18/24 15:11
Absolute Neuts (auto) 8.0 10^3/uL (1.4-6.5) H 11/18/24 15:11
Absolute Lymphs (auto) 1.7 10^3/uL (1.2-3.4) 11/18/24 15:11
Absolute Monos (auto) 0.8 10^3/uL (0.1-0.6) H 11/18/24 15:11
Absolute Basos (auto) 0.1 10^3/uL (0-0.2) 11/18/24 15:11
Immature Gran % 0.5 % (0-0.5) 11/18/24 15:11
Neutrophils % 73.1 % (42.2-75.2) 11/18/24 15:11
Lymphocytes % 15.8 % (20.5-51.1) L 11/18/24 15:11
Monocytes % 7.3 % (1.7-9.3) 11/18/24 15:11
Eosinophils % 2.8 % (0-6) 11/18/24 15:11
Basophils % 0.5 % (0-2) 11/18/24 15:11
PT 14.0 Sec (11.4-14.6) 11/19/24 08:37
INR 1.03 11/19/24 08:37
Lactic Acid Cancelled 11/18/24 21:45
Ur Squamous Epith Cells 0-2 /LPF (Few) 11/18/24 17:52
Microbiology Results
Micro:
11/18/24 17:52 Urine Culture - Pending
Urine
11/18/24 15:11 Blood Culture - Pending
Blood/Venous
Collection Date: 11/11/2024 12:02:00
Result Recd: 11/17/2024 10:09:30
Report: 11/17/2024 10:05:00
Ordering Physician: TOÑITO SANTANA
Urinalysis, Routine - [id number]
NAME VALUE REFERENCE RANGE
Specific [place] 1.018 1.005-1.030
pH 6.0 5.0-7.5
Urine-Color Yellow Yellow
Appearance Turbid A Clear
WBC Esterase 3+ A Negative
Protein 3+ A Negative/Trace
Glucose Negative Negative
Ketones Negative Negative
Occult Blood 1+ A Negative
Bilirubin Negative Negative
Nitrite, Urine Positive Negative
Microscopic Examination See below:
Microscopic was indicated and was performed.
WBC >30 A 0 - 5 (/hpf)
RBC 3-10 A 0 - 2 (/hpf)
Epithelial Cells 0-10 0 - 10 (/hpf)
Bacteria Many None seen/Few
11/11/2024 - Urine culture (performend at [facility])
Serratia marcescens - Identified by MALDI-TOF mass spectrometry.
Greater than 100,000 colony forming units per mL
Antibiotic
Amikacin S
Amoxicillin/Clavulanic Acid R
Aztreonam S
Cefepime S
Cefotaxime S
Cefoxitin R
Ceftazidime S
Ceftazidime/avibactam S
Ceftriaxone S
Cefuroxime R
Ciprofloxacin I
Ertapenem S
Gentamicin S
Levofloxacin I
Meropenem S
Meropenem/vaborbactam S
Nitrofurantoin R
Tetracycline R
Tobramycin S
Imaging:
11/18/2024 CT abdomen/pelvis without contrast: A new soft tissue mass in the right lower quadrant of the abdomen concerning for recurrent disease measuring approximately 4.4 x 4.0 x 5.4 cm. Obstruction of the distal right ureter is noted at this
level with upstream moderate right hydroureteronephrosis noted. Patient is status post previous cystoprostatectomy with right lower quadrant urostomy and ileal conduit. There is a large amount of stool in the rectum concerning for
constipation/fecal impaction. Please see full dictation for additional detail.
Assessment / Plan
Complicated urinary tract infection
Obstructive uropathy.
Leukocytosis
MICHELLE
DM
Seizure disorder
HTN
Dyslipidemia
Bipolar disorder
Bladder CA
Recommendations:
Outpatient cultures reviewed.
Continue with cefepime for the present. Dose has been adjusted for renal insufficiency.
Await placement of right PCN
Follow white count and temperature curve.
Further recommendations as additional data is returned.
[2024-11-19] MEDS: MIRALAX PO (12:49)
--- NOTE | 2024-11-19 16:03 | PTCARENOTE ---
SUDHEER RN- spoke to tima Seay) post nephrostomy tube insertion and updated on status.
--- NOTE | 2024-11-19 16:22 | PTCARENOTE ---
IRAD RN- tubed drainage care instructions to [facility] for patient when discharged
[2024-11-19 16:35] LABS: Glucose - Point of Care 122 mg/dl (70-99)
[2024-11-19] MEDS: DULCOLAX 10 MG RECTAL (17:45)
[2024-11-19] MEDS: AMARYL 2 MG PO (20:50)
[2024-11-19] MEDS: REMOVE LIDOCAINE PATCH 1 PATCH REMOVE (20:50)
[2024-11-19 21:54] LABS: Glucose - Point of Care 203 mg/dl (70-99)
[2024-11-19] MEDS: SODIUM BICARBONATE 650 MG PO (22:36)
[2024-11-19] MEDS: SEROQUEL 100 MG PO (22:39)
[2024-11-20] MEDS: MAXIPIME 1000 MG IV ×2 (05:06→18:21)
[2024-11-20] MEDS: STERILE WATER FOR INJECTION 10 ML IV ×2 (05:06→18:21)
[2024-11-20 07:00] VITALS: BP 193/93
[2024-11-20 07:08] LABS: Glucose - Point of Care 113 mg/dl (70-99)
[2024-11-20 08:27] LABS: Hematocrit 28.3 % (39.0-52.0); Hemoglobin 9.3 g/dL (13.0-18.0); Mean Corp Hgb Conc. 32.9 g/dL (33.0-37.0); Mean Corpuscular Volume 94.6 fL (80.0-94.0); Platelet Count 240 10^3/uL (130-400); Red Cell Dist. Width 14.8 % (11.5-14.5)
--- NOTE | 2024-11-20 08:34 | W.PN.HOSP.TC ---
Today's Communication/Plan
-
cont abx
gas-x prn bloating gas discomfort
cont IVF support
once fleet enema
Assessment / Plan
Assessment / Plan
Physical Exam
General: No acute distress, appears comfortable at this time
HEENT: NormoCephalic, Moist mucous membranes and Atraumatic
Respiratory: Clear
Cardiac: S1/S2 and Regular Rhythm; No Murmur or Rub
Abd: Soft, some tenderness on palpation, Distended, Bowel sounds present, Urostomy bag in place, right Nephrostomy tube in place
Musculoskeletal: No Clubbing, No Cyanosis and No Edema
Skin: No Rash
Neuro: AO x 3 conversant coherent
Psych: calm
74M Complicated urinary tract infection in patient with history of bladder cancer status post cystoprostatectomy ileal conduit and prior left ureteral stent who presents to the emergency department with feeling feverish and found to have a positive
UA with history of MDR in the past. Unfortunately was found to have MICHELLE with a creatinine of 2.9 and a BUN of 41 and potassium of 5.7. He also has newfound obstruction with a soft tissue mass in the right lower quadrant of the abdomen concerning
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 Otherwise VSS afebrile non-septic appearing.
PLAN:
# Complicated urinary tract infection without sepsis at this time
-IR eval appreciated right nephrostomy placement 11/19/24
-ID eval appreciated cont Cefipime renally dosed
-Urology eval appreciated
-Blood cultures, urine cultures NGTD
# MICHELLE -suspect from the hydronephrosis 2/2 intraabdominal mass.
#Hyperkalemia
- Avoid nephrotoxic
- Monitor ins and outs
- Renal dose medication
- oral bicarb supplementation to avoid worsening acidosis
- Hold metformin
- received 1 dose of Lokelma so far
- IVF support
- hyperkalemia since resolved, potassium restricted diet discontinued
#Belching abd discomfort
# Constipation
-bowel regimen
-once suppository 11/19
-11/20 abd X-ray appreciated Small to moderate volume scattered colonic stool.
-Fleet enema 11/20
# DM2
- Hold metformin
- Continue glimepiride
- Sliding scale insulin
# Bipolar
- Continue with Depakote
- Continue bupropion
DVT prophylaxis�SCDs for now
CODE STATUS�full code
I spent a total of 45 minutes with the patient or on the floor. More than 50% of this time involved counseling and coordination of care.
Anticipated Discharge: 24 - 48 hours
Subjective/Interval History
-
Date of Service: November 20, 2024
No acute distress, resting comfortably in bed. Overall reports feeling well. Reports gas bloating discomfort.
Objective Data
-
Labs:
Laboratory Results
11/20/24
07:48
WBC 10.4
Hgb 9.3 L
Hct 28.3 L
Plt Count 240
Sodium Pending
Potassium Pending
Chloride Pending
Carbon Dioxide Pending
BUN Pending
Creatinine Pending
Glucose Pending
Calcium Pending
Vital Signs:
Vital Signs
Temp Pulse Resp BP Pulse Ox
97.9 F 88 12 193/93 97
11/20/24 07:00 11/20/24 07:00 11/20/24 07:00 11/20/24 07:00 11/20/24 07:00
I&O
11/19/24 11/20/24 11/21/24
06:59 06:59 06:59
Intake Total 240 / 240 1200 / 1200
Output Total 500 / 500 1275 / 1275
Balance -260 / -260 -75 / -75
--- NOTE | 2024-11-20 08:41 | W.PN.URO.CBU ---
Today's Communication / Plan
-
continue right perc and left ureteral stent
await cx's
trend cr level
Assessment / Plan
-
s/p cystectomy and ileal loop for bladder cancer
left ureteral obstruction- stented
right ureteral obstruction- suspected malig- perc placed
ASHLEY
UTI
continue urinary drains
hydrate- track cr levels
await ucx
eventually will need f/u at [facility] to discuss new clinical findings/developments
Diagnosis
-
Date of Service: November 20, 2024
-
Patient Diagnosis:
bladder cancer s/p cystectomy and ileal loop at [facility]
recurrent UTI
hx of left ureteral obstruction with nephro-ureteral stent with access thru stoma
New Diagnosis
suspected cancer recurrence with right ureteral obstruction
Post Op Day:
right nephrostomy 11/19
Subjective
-
pt feeling better
had right perc placed yesterday- purulent urine returned
no fevers
cx's and cr level pending
Objective
-
Vital Signs
Temp Pulse Resp BP Pulse Ox
97.9 F 88 12 193/93 97
11/20/24 07:00 11/20/24 07:00 11/20/24 07:00 11/20/24 07:00 11/20/24 07:00
Intake and Output
11/19/24 11/20/24 11/21/24
06:59 06:59 06:59
Intake Total 240 / 240 1200 / 1200
Output Total 500 / 500 1275 / 1275
Balance -260 / -260 -75 / -75
Intake:
Oral fluids 240 / 240
IV fluids (Total) 1200 / 1200
Output:
Urinary Drain Output (Total) 500 / 500 225 / 225
Right Nephrostomy 500 / 500 225 / 225
Urostomy output 1050 / 1050
Laboratory Results
11/20/24 07:48
Review of Systems
-
Constitutional: Fatigue
Respiratory: No Symptoms
Cardiac: No Symptoms
Abdomen/GI: No Symptoms
Physical Exam
-
General - no acute distress
Abdomen - soft, non-tender, right perc in place
Genitalia - normal
[2024-11-20] MEDS: LIDOCAINE 4% PATCH 2 PATCH TOPICAL (08:52)
[2024-11-20] MEDS: NOVOLOG FLEXPEN-LOW RESISTANCE SC ×2 (08:52→18:05)
[2024-11-20] MEDS: WELLBUTRIN XL (24 hour extended release) 150 MG PO (08:53)
[2024-11-20] MEDS: FOLVITE 1 MG PO (08:53)
[2024-11-20] MEDS: SODIUM BICARBONATE 650 MG PO ×3 (08:53→21:55)
[2024-11-20] MEDS: DEPAKOTE ER (24 HR RELEASE) PO ×2 (08:53→14:04)
[2024-11-20] MEDS: SENOKOT-S 1 TABLET PO ×2 (08:55→21:49)
[2024-11-20] MEDS: AMARYL 2 MG PO ×2 (08:55→21:54)
[2024-11-20] MEDS: MIRALAX 17 GRAMS PO (08:55)
[2024-11-20] MEDS: NSS 1000 IV ×2 (08:58→18:30)
[2024-11-20 09:07] LABS: Blood Urea Nitrogen 33 mg/dl (9-20); Calcium 9.3 mg/dl (8.4-10.2); Carbon Dioxide 20 mmol/L (22-30); Chloride 113 mmol/L (98-107); Estimated Creatinine Clearance 20 ml/min; Glucose 88 mg/dl (70-99); Magnesium 1.9 mg/dl (1.6-2.3); Potassium 4.6 mmol/L (3.5-5.1); Sodium 140 mmol/L (135-145); eGFR 22.67
[2024-11-20] MEDS: ZOFRAN 4 MG IV (09:34)
[2024-11-20 11:40] LABS: Glucose - Point of Care 173 mg/dl (70-99)
[2024-11-20 13:11] VITALS: BP 189/92; PULSE 88
[2024-11-20 13:12] VITALS: BP 189/92; PULSE 85; O2SAT 97
[2024-11-20] MEDS: NOVOLOG FLEXPEN-LOW RESISTANCE 1 UNITS SC (14:04)
[2024-11-20] MEDS: APRESOLINE 5 MG IV ×2 (14:08→22:04)
[2024-11-20] MEDS: MYLICON 80 MG PO (14:14)
--- NOTE | 2024-11-20 14:24 | W.PN.ID1 ---
Date of Service
Date of Service: November 20, 2024
Today's Communication
Continue antibiotics
Assessment / Plan
Complicated urinary tract infection
Obstructive uropathy.
Leukocytosis
MICHELLE
DM
Seizure disorder
HTN
Dyslipidemia
Bipolar disorder
Bladder CA
Recommendations:
Outpatient cultures reviewed with recovery of Serratia marcescens
Continue with cefepime for the present. Dose has been adjusted for renal insufficiency.
Monitor creatinine
Follow white count and temperature curve.
����������������������������������������������������������
Subjective / Review of Systems
Patient seen and examined. Reports back discomfort.
Review of Systems: No Fever and No Chills
Vital Signs / Physical Exam
Vital Signs
Vital Signs
Temp Pulse Resp BP Pulse Ox
97.9 F 90 12 168/106 97
11/20/24 07:00 11/20/24 14:08 11/20/24 07:00 11/20/24 14:08 11/20/24 07:00
Physical Exam
Constitutional: No Acute Distress, Comfortable, Chronically Ill and Non-toxic
Eyes: Sclera Anicteric
Cardiovascular: S1/S2; Negative S3/S4
Pulmonary: Clear and Non Labored
Gastrointestinal: Soft, Non Tender and Non Distended
Genito-Urinary: Other (Right urostomy in place. Right PCN in place with scant urine)
Extremities: Edema; Negative Cyanosis or Erythema
Neurological: Awake and Alert
Psychological: Calm
Objective Data
Lab Data
Lab Results
11/20/24 07:48
11/20/24 07:48
PT 14.0 Sec (11.4-14.6) 11/19/24 08:37
INR 1.03 11/19/24 08:37
Estimated Creat Clear 20 ml/min 11/20/24 07:48
Lactic Acid Cancelled 11/18/24 21:45
Total Bilirubin 0.6 mg/dl (0.2-1.3) 11/18/24 15:11
AST 17 U/L (17-59) 11/18/24 15:11
ALT 10 U/L (0-50) 11/18/24 15:11
Alkaline Phosphatase 93 U/L (38-126) 11/18/24 15:11
Most recent labs reviewed.
Micro Results:
11/19/24 15:29 Urine Culture - Preliminary
Urine NO GROWTH
11/18/24 15:11 Blood Culture - Preliminary
Blood/Venous No Growth in 24 hours- Final report to follow
11/18/24 17:52 Urine Culture - Final
Urine
Collection Date: 11/11/2024 12:02:00
Result Recd: 11/17/2024 10:09:30
Report: 11/17/2024 10:05:00
Ordering Physician: TOÑITO SANTANA
Urinalysis, Routine - [id number]
NAME VALUE REFERENCE RANGE
Specific [place] 1.018 1.005-1.030
pH 6.0 5.0-7.5
Urine-Color Yellow Yellow
Appearance Turbid A Clear
WBC Esterase 3+ A Negative
Protein 3+ A Negative/Trace
Glucose Negative Negative
Ketones Negative Negative
Occult Blood 1+ A Negative
Bilirubin Negative Negative
Nitrite, Urine Positive Negative
Microscopic Examination See below:
Microscopic was indicated and was performed.
WBC >30 A 0 - 5 (/hpf)
RBC 3-10 A 0 - 2 (/hpf)
Epithelial Cells 0-10 0 - 10 (/hpf)
Bacteria Many None seen/Few
11/11/2024 - Urine culture (performend at [facility])
Serratia marcescens - Identified by MALDI-TOF mass spectrometry.
Greater than 100,000 colony forming units per mL
Antibiotic
Amikacin S
Amoxicillin/Clavulanic Acid R
Aztreonam S
Cefepime S
Cefotaxime S
Cefoxitin R
Ceftazidime S
Ceftazidime/avibactam S
Ceftriaxone S
Cefuroxime R
Ciprofloxacin I
Ertapenem S
Gentamicin S
Levofloxacin I
Meropenem S
Meropenem/vaborbactam S
Nitrofurantoin R
Tetracycline R
Tobramycin S
Imaging:
11/18/2024 CT abdomen/pelvis without contrast: A new soft tissue mass in the right lower quadrant of the abdomen concerning for recurrent disease measuring approximately 4.4 x 4.0 x 5.4 cm. Obstruction of the distal right ureter is noted at this
level with upstream moderate right hydroureteronephrosis noted. Patient is status post previous cystoprostatectomy with right lower quadrant urostomy and ileal conduit. There is a large amount of stool in the rectum concerning for
constipation/fecal impaction. Please see full dictation for additional detail.
[2024-11-20 15:00] VITALS: BP 171/91
[2024-11-20] MEDS: FLEET MINERAL OIL ENEMA 133 ML RECTAL (16:05)
[2024-11-20 16:35] LABS: Glucose - Point of Care 109 mg/dl (70-99)
[2024-11-20 19:25] VITALS: BP 174/86
[2024-11-20] MEDS: REMOVE LIDOCAINE PATCH 2 PATCH REMOVE (21:49)
[2024-11-20] MEDS: SEROQUEL 100 MG PO (21:54)
[2024-11-20 23:01] LABS: Glucose - Point of Care 138 mg/dl (70-99)
[2024-11-20 23:15] VITALS: BP 171/86
[2024-11-21] VITALS (7 sets, daily range): BP systolic 141–188; BP diastolic 90–102
[2024-11-21] MEDS: MAXIPIME 1000 MG IV ×2 (05:21→17:24)
[2024-11-21] MEDS: STERILE WATER FOR INJECTION 10 ML IV ×2 (05:21→17:24)
[2024-11-21 07:04] LABS: Glucose - Point of Care 72 mg/dl (70-99)
--- NOTE | 2024-11-21 07:40 | W.PN.HOSP.TC ---
Today's Communication/Plan
-
scheduled laxatives switched to PRN
cont IV abx
PT/OT
cont IVF
monitor renal function
Assessment / Plan
Assessment / Plan
Physical Exam
General: No acute distress, appears comfortable at this time
HEENT: NormoCephalic, Moist mucous membranes and Atraumatic
Respiratory: Clear
Cardiac: S1/S2 and Regular Rhythm; No Murmur or Rub
Abd: Soft, some tenderness on palpation, Distended, Bowel sounds present, Urostomy bag in place, right Nephrostomy tube in place
Musculoskeletal: No Clubbing, No Cyanosis and No Edema
Skin: No Rash
Neuro: AO x 3 conversant coherent
Psych: calm
74M Complicated urinary tract infection in patient with history of bladder cancer status post cystoprostatectomy ileal conduit and prior left ureteral stent who presents to the emergency department with feeling feverish and found to have a positive
UA with history of MDR in the past. Unfortunately was found to have MICHELLE with a creatinine of 2.9 and a BUN of 41 and potassium of 5.7. He also has newfound obstruction with a soft tissue mass in the right lower quadrant of the abdomen concerning
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 Otherwise VSS afebrile non-septic appearing.
PLAN:
# Complicated urinary tract infection without sepsis at this time
-IR eval appreciated right nephrostomy placement 11/19/24
-ID eval appreciated cont Cefipime renally dosed
-Urology eval appreciated
-Blood cultures, urine cultures NGTD
# MICHELLE -suspect from the hydronephrosis 2/2 intraabdominal mass.
#Hyperkalemia
- Avoid nephrotoxic
- Monitor ins and outs
- Renal dose medication
- oral bicarb supplementation to avoid worsening acidosis
- Hold metformin
- received 1 dose of Lokelma so far
- IVF support
- hyperkalemia since resolved, potassium restricted diet discontinued
-trend Cr high 2.9 trending down
#Belching abd discomfort
# Constipation
-bowel regimen
-once suppository 11/19
-11/20 abd X-ray appreciated Small to moderate volume scattered colonic stool.
-Fleet enema 11/20
-constipation since resovled
-laxatives switched to prn
-gas-x prn
# DM2
- Hold metformin
- Continue glimepiride
- Sliding scale insulin
# Bipolar
- Continue with Depakote
- Continue bupropion
DVT prophylaxis�SCDs for now
CODE STATUS�full code
Discussed with patient and patient's son Estuardo
I spent a total of 45 minutes with the patient or on the floor. More than 50% of this time involved counseling and coordination of care.
Anticipated Discharge: 24 - 48 hours
Subjective/Interval History
-
Date of Service: November 21, 2024
No acute distress, overall reports feeling well. Sitting up comfortably in bed. Constipation resolved. Belching intermittent gas discomfort persists.
Objective Data
-
Labs:
Laboratory Results
11/21/24
06:00
WBC Pending
Hgb Pending
Hct Pending
Plt Count Pending
Sodium Pending
Potassium Pending
Chloride Pending
Carbon Dioxide Pending
BUN Pending
Creatinine Pending
Glucose Pending
Calcium Pending
Vital Signs:
Vital Signs
Temp Pulse Resp BP Pulse Ox
98.3 F 92 18 163/92 98
11/21/24 03:45 11/21/24 03:45 11/21/24 03:45 11/21/24 03:45 11/21/24 03:45
I&O
09/19/25 09/20/25 09/21/25
06:59 06:59 06:59
Intake Total 1200 / 1200 1350 / 1350
Output Total 1275 / 1275 1950 / 1950
Balance -75 / -75 -600 / -600
[2024-11-21] MEDS: APRESOLINE 5 MG IV ×2 (07:44→20:25)
[2024-11-21] MEDS: WELLBUTRIN XL (24 hour extended release) 150 MG PO (07:45)
[2024-11-21] MEDS: NOVOLOG FLEXPEN-LOW RESISTANCE SC ×2 (07:45→16:38)
[2024-11-21] MEDS: SODIUM BICARBONATE 650 MG PO ×3 (07:45→21:00)
[2024-11-21] MEDS: DEPAKOTE ER (24 HR RELEASE) 1500 MG PO (07:45)
[2024-11-21] MEDS: FOLVITE 1 MG PO (07:46)
[2024-11-21] MEDS: LIDOCAINE 4% PATCH TOPICAL ×2 (07:46→07:59)
[2024-11-21] MEDS: AMARYL 2 MG PO ×2 (07:46→20:22)
[2024-11-21] MEDS: MIRALAX PO (07:46)
[2024-11-21] MEDS: SENOKOT-S PO (07:47)
[2024-11-21] MEDS: NSS IV (07:52)
[2024-11-21] MEDS: ZOFRAN 4 MG IV (07:56)
[2024-11-21 08:20] LABS: Hematocrit 30.9 % (39.0-52.0); Hemoglobin 9.9 g/dL (13.0-18.0); Mean Corp Hgb Conc. 32.0 g/dL (33.0-37.0); Mean Corpuscular Volume 93.6 fL (80.0-94.0); Platelet Count 263 10^3/uL (130-400); Red Cell Dist. Width 15.0 % (11.5-14.5)
[2024-11-21 08:43] LABS: Blood Urea Nitrogen 27 mg/dl (9-20); Calcium 9.8 mg/dl (8.4-10.2); Carbon Dioxide 21 mmol/L (22-30); Chloride 112 mmol/L (98-107); Estimated Creatinine Clearance 24 ml/min; Glucose 70 mg/dl (70-99); Magnesium 1.8 mg/dl (1.6-2.3); Potassium 4.7 mmol/L (3.5-5.1); Sodium 141 mmol/L (135-145); eGFR 27.28
[2024-11-21] MEDS: DILAUDID 0.25 MG IV (09:46)
[2024-11-21 11:25] LABS: Glucose - Point of Care 179 mg/dl (70-99)
[2024-11-21] MEDS: NOVOLOG FLEXPEN-LOW RESISTANCE 1 UNITS SC (12:02)
[2024-11-21] MEDS: NSS 1000 IV ×2 (12:02→22:50)
--- NOTE | 2024-11-21 13:51 | PTCARENOTE ---
Urostomy detached. [facility] called for supplies. When supplies arrive, this RN, will do urostomy care.
[2024-11-21 16:37] LABS: Glucose - Point of Care 144 mg/dl (70-99)
[2024-11-21] MEDS: REMOVE LIDOCAINE PATCH REMOVE (20:27)
[2024-11-21] MEDS: SEROQUEL 100 MG PO (21:00)
[2024-11-21 21:45] LABS: Glucose - Point of Care 142 mg/dl (70-99)
[2024-11-22] VITALS (9 sets, daily range): BP systolic 135–190; BP diastolic 76–101
[2024-11-22] MEDS: MAXIPIME 1000 MG IV ×2 (05:41→17:00)
[2024-11-22] MEDS: STERILE WATER FOR INJECTION 10 ML IV ×2 (05:41→17:00)
[2024-11-22] MEDS: FLUSH (NSS) 1 FLUSH IV (05:43)
--- NOTE | 2024-11-22 07:52 | W.PN.HOSP.TC ---
Today's Communication/Plan
-
cont abx as per ID
NPO except meds, bowel rest
IVF support
Blood pressure control
PT/OT
Monitor renal function
Assessment / Plan
Assessment / Plan
Physical Exam
General: No acute distress, appears comfortable at this time
HEENT: NormoCephalic, Moist mucous membranes and Atraumatic
Respiratory: Clear
Cardiac: S1/S2 and Regular Rhythm; No Murmur or Rub
Abd: Soft, some tenderness on palpation, Distended, Bowel sounds present, Urostomy bag in place, right Nephrostomy tube in place
Musculoskeletal: No Clubbing, No Cyanosis and No Edema
Skin: No Rash
Neuro: AO x 3 conversant coherent
Psych: calm
74M Complicated urinary tract infection in patient with history of bladder cancer status post cystoprostatectomy ileal conduit and prior left ureteral stent who presents to the emergency department with feeling feverish and found to have a positive
UA with history of MDR in the past. Unfortunately was found to have MICHELLE with a creatinine of 2.9 and a BUN of 41 and potassium of 5.7. He also has newfound obstruction with a soft tissue mass in the right lower quadrant of the abdomen concerning
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 Otherwise VSS afebrile non-septic appearing.
PLAN:
# Complicated urinary tract infection without sepsis at this time
-IR eval appreciated right nephrostomy placement 11/19/24
-ID eval appreciated cont Cefipime renally dosed, transition to oral cefdinir on discharge
-Urology eval appreciated
-Blood cultures, urine cultures NGTD
# MICHELLE -suspect from the hydronephrosis 2/2 intraabdominal mass.
#Hyperkalemia
- Avoid nephrotoxic
- Monitor ins and outs
- Renal dose medication
- oral bicarb supplementation to avoid worsening acidosis
- Hold metformin
- received 1 dose of Lokelma so far
- IVF support
- mild hyperkalemia, monitor
-trend Cr high 2.9 trending down, consider Nephro eval if MICHELLE persists
#Belching abd discomfort
# Constipation
#Ileus
-once suppository 11/19
-11/20 abd X-ray appreciated Small to moderate volume scattered colonic stool.
-Fleet enema 11/20
-Bowel movements noted with above treatment however significant distension abd discomfort belching nausea persist/worsen
-11/22 CT abd/pelvis Probable reactive small bowel ileus. Small volume abdominopelvic ascites
-11/22 bowel rest for now, NPO except meds, cont IVF support as above
# DM2
- Hold metformin
- Glimepiride on hold while NPO
- Sliding scale insulin
# Bipolar
- Continue with Depakote
- Continue bupropion
#HTN
started on low dose Amlodipine 2.5 mg daily
cont prn IV hydralazine SBP>160 or DBP>100
PT/OT appreciated SNF rehab
DVT prophylaxis�SCDs for now
CODE STATUS�full code
Discussed with patient and patient's son Estuardo
I spent a total of 45 minutes with the patient or on the floor. More than 50% of this time involved counseling and coordination of care.
Anticipated Discharge: 24 - 48 hours
Subjective/Interval History
-
Date of Service: November 22, 2024
Persistent nausea belching discomfort
Objective Data
-
Labs:
Laboratory Results
11/22/24
06:00
WBC Pending
Hgb Pending
Hct Pending
Plt Count Pending
Sodium Pending
Potassium Pending
Chloride Pending
Carbon Dioxide Pending
BUN Pending
Creatinine Pending
Glucose Pending
Calcium Pending
Vital Signs:
Vital Signs
Temp Pulse Resp BP Pulse Ox
98.7 F 104 18 151/85 97
11/22/24 03:13 11/22/24 03:13 11/22/24 03:13 11/22/24 03:13 11/22/24 03:13
I&O
11/21/24 11/22/24 11/23/24
06:59 06:59 06:59
Intake Total 1350 / 1350 3490 / 3490
Output Total 1950 / 1950 2024
Balance -600 / -600 1465 / 1465
--- NOTE | 2024-11-22 08:15 | W.PN.URO.CBU ---
Today's Communication / Plan
-
Maintain right PCN to drainage, ileal conduit to bag
Trend Cr
F/U UCx
Per patient request, he will F/U w/ Dr. Frederick @[place] after discharge for further management
Detailed discussion had w/ patient regarding CT findings of soft tissue mass w/ malignant obstruction of right ureter indicative of cancer recurrence.
Patient expressed wishes to pursue additional imaging and IR biopsy @[place] - offered while inpatient @[facility] - deferred.
Assessment / Plan
-
Suspected cancer recurrence w/ right ureteral obstruction (new)
MICHELLE
Bladder cancer s/p robotic cystectomy + ileal loop ([place])
Shaheen
H/o left ureteral obstruction with nephroureteral stent with access via stoma
11/19: s/p right nephrostomy (IR)
Diagnosis
-
Date of Service: November 22, 2024
-
Patient Diagnosis:
Bladder cancer s/p robotic cystectomy + ileal loop ([place])
Shaheen
H/o left ureteral obstruction with nephroureteral stent with access via stoma
Suspected cancer recurrence w/ right ureteral obstruction (new)
Post Op Day:
11/19: s/p right nephrostomy (IR)
Subjective
-
Tolerating diet.
Good UOP per right PCN.
Objective
-
Vital Signs
Temp Pulse Resp BP Pulse Ox
98.6 F 98 16 190/98 97
11/22/24 08:00 11/22/24 08:00 11/22/24 08:00 11/22/24 09:38 11/22/24 08:00
Intake and Output
11/21/24 11/22/24 11/23/24
06:59 06:59 06:59
Intake Total 1350 / 1350 3490 / 3490
Output Total 1950 / 1949
Balance -600 / -600 1465 / 1465 -15 -15
Intake:
Oral fluids 460 / 460
IV fluids (Total) 1350 / 1350 3000 / 3000
IV piggybacks
Output:
Emesis
Urinary Drain Output (Total) 750 / 750 750 / 750
Right Nephrostomy 750 / 750 750 / 750
Urine, [place] 525 / 525
Urostomy output 1200 / 1200 750 / 750
Other:
Number of immeasurable emeses? 1
Laboratory Results
11/22/24 07:54
11/22/24 07:54
Review of Systems
-
Constitutional: No Symptoms
Respiratory: No Symptoms
Cardiac: No Symptoms
Abdomen/GI: Other (belching)
: No Symptoms
Musculoskeletal: No Symptoms
Skin: No Symptoms
Neurological: No Symptoms
Physical Exam
-
General - well developed, well nourished, no acute distress
Abdomen - soft, non-tender, non-distended
- right PCN to drainage bag, ileal conduit stoma healthy
Skin - warm & dry with no rash
Neuro - AOx3, no motor deficits
Extremities - no clubbing, no cyanosis, no edema
Care Review
Data Reviewed
Discussed with: Hospitalist
CT Scan: Report Pers Reviewed and Image Pers Reviewed
Total Time Spent with Patient (in minutes): 30
[2024-11-22 08:23] LABS: Glucose - Point of Care 125 mg/dl (70-99)
[2024-11-22] MEDS: NOVOLOG FLEXPEN-LOW RESISTANCE SC ×3 (08:25→17:58)
[2024-11-22] MEDS: SODIUM BICARBONATE 650 MG PO (08:25)
[2024-11-22] MEDS: AMARYL 2 MG PO (08:25)
[2024-11-22] MEDS: FOLVITE 1 MG PO (08:25)
[2024-11-22] MEDS: LIDOCAINE 4% PATCH 2 PATCH TOPICAL (08:26)
[2024-11-22] MEDS: DEPAKOTE ER (24 HR RELEASE) 1500 MG PO (08:26)
[2024-11-22] MEDS: WELLBUTRIN XL (24 hour extended release) 150 MG PO (08:26)
[2024-11-22] MEDS: NSS 1000 IV ×2 (08:27→19:08)
[2024-11-22 08:40] LABS: Hematocrit 32.0 % (39.0-52.0); Hemoglobin 10.3 g/dL (13.0-18.0); Mean Corp Hgb Conc. 32.2 g/dL (33.0-37.0); Mean Corpuscular Volume 95.2 fL (80.0-94.0); Platelet Count 278 10^3/uL (130-400); Red Cell Dist. Width 15.3 % (11.5-14.5)
[2024-11-22 09:04] LABS: Blood Urea Nitrogen 26 mg/dl (9-20); Calcium 9.8 mg/dl (8.4-10.2); Carbon Dioxide 19 mmol/L (22-30); Chloride 114 mmol/L (98-107); Estimated Creatinine Clearance 25 ml/min; Glucose 105 mg/dl (70-99); Magnesium 1.7 mg/dl (1.6-2.3); Potassium 5.4 mmol/L (3.5-5.1); Sodium 140 mmol/L (135-145); eGFR 28.71
[2024-11-22] MEDS: PEPCID 20 MG PO (09:32)
[2024-11-22] MEDS: APRESOLINE 5 MG IV ×2 (09:38→17:30)
[2024-11-22 12:21] LABS: Glucose - Point of Care 134 mg/dl (70-99)
--- NOTE | 2024-11-22 13:10 | W.PN.ID1 ---
Date of Service
Date of Service: November 22, 2024
Today's Communication
Continue antibiotics.
Assessment / Plan
Complicated urinary tract infection
Obstructive uropathy.
Leukocytosis
MICHELLE
DM
Seizure disorder
HTN
Dyslipidemia
Bipolar disorder
Bladder CA
Recommendations:
Outpatient cultures reviewed with recovery of Serratia marcescens
Continue with cefepime for the present. Dose has been adjusted for renal insufficiency.
- Patient can likely be transition to oral cefdinir at time of discharge. (Outpatient Serratia isolate susceptible to ceftriaxone)
Monitor creatinine
Follow white count and temperature curve.
����������������������������������������������������������
Chief Complaint
-: UTI
Subjective / Review of Systems
Patient seen and examined. Reports nausea today. Also notes ongoing back discomfort.
Review of Systems: No Fever
Vital Signs / Physical Exam
Vital Signs
Vital Signs
Temp Pulse Resp BP Pulse Ox
98.2 F 107 18 161/92 98
11/22/24 11:30 11/22/24 11:30 11/22/24 11:30 11/22/24 11:35 11/22/24 11:30
Physical Exam
Constitutional: Chronically Ill and Non-toxic
Eyes: Sclera Anicteric
Cardiovascular: S1/S2; Negative S3/S4
Pulmonary: Clear and Non Labored
Gastrointestinal: Soft, Non Tender and Non Distended
Genito-Urinary: Other (Right urostomy in place. Right PCN in place)
Extremities: Edema; Negative Cyanosis or Erythema
Neurological: Awake and Alert
Psychological: Calm
Objective Data
Lab Data
Lab Results
11/22/24 07:54
11/22/24 07:54
PT 14.0 Sec (11.4-14.6) 11/19/24 08:37
INR 1.03 11/19/24 08:37
Estimated Creat Clear 25 ml/min 11/22/24 07:54
Lactic Acid Cancelled 11/18/24 21:45
Total Bilirubin 0.6 mg/dl (0.2-1.3) 11/18/24 15:11
AST 17 U/L (17-59) 11/18/24 15:11
ALT 10 U/L (0-50) 11/18/24 15:11
Alkaline Phosphatase 93 U/L (38-126) 11/18/24 15:11
Most recent labs reviewed.
Micro Results:
11/18/24 15:11 Blood Culture - Preliminary
Blood/Venous No Growth in 72 hours- Final report to follow
11/19/24 15:29 Urine Culture - Final
Urine NO GROWTH
11/18/24 17:52 Urine Culture - Final
Urine
Collection Date: 11/11/2024 12:02:00
Result Recd: 11/17/2024 10:09:30
Report: 11/17/2024 10:05:00
Ordering Physician: TOÑITO SANTANA
Urinalysis, Routine - [id number]
NAME VALUE REFERENCE RANGE
Specific [place] 1.018 1.005-1.030
pH 6.0 5.0-7.5
Urine-Color Yellow Yellow
Appearance Turbid A Clear
WBC Esterase 3+ A Negative
Protein 3+ A Negative/Trace
Glucose Negative Negative
Ketones Negative Negative
Occult Blood 1+ A Negative
Bilirubin Negative Negative
Nitrite, Urine Positive Negative
Microscopic Examination See below:
Microscopic was indicated and was performed.
WBC >30 A 0 - 5 (/hpf)
RBC 3-10 A 0 - 2 (/hpf)
Epithelial Cells 0-10 0 - 10 (/hpf)
Bacteria Many None seen/Few
[facility]11[facility]2024 - [facility]
Serratia marcescens - Identified by MALDI-TOF mass spectrometry.
Greater than 100,000 colony forming units per mL
Antibiotic
Amikacin S
Amoxicillin/Clavulanic Acid R
Aztreonam S
Cefepime S
Cefotaxime S
Cefoxitin R
Ceftazidime S
Ceftazidime/avibactam S
Ceftriaxone S
Cefuroxime R
Ciprofloxacin I
Ertapenem S
Gentamicin S
Levofloxacin I
Meropenem S
Meropenem/vaborbactam S
Nitrofurantoin R
Tetracycline R
Tobramycin S
Imaging:
11/18/2024 CT abdomen/pelvis without contrast: A new soft tissue mass in the right lower quadrant of the abdomen concerning for recurrent disease measuring approximately 4.4 x 4.0 x 5.4 cm. Obstruction of the distal right ureter is noted at this
level with upstream moderate right hydroureteronephrosis noted. Patient is status post previous cystoprostatectomy with right lower quadrant urostomy and ileal conduit. There is a large amount of stool in the rectum concerning for
constipation/fecal impaction. Please see full dictation for additional detail.
[2024-11-22] MEDS: OMNIPAQUE 50 ML PO (13:16)
[2024-11-22] MEDS: DILAUDID 0.25 MG IV ×2 (13:28→22:03)
[2024-11-22] MEDS: SODIUM BICARBONATE 1300 MG PO ×2 (16:59→21:54)
[2024-11-22 17:49] LABS: Glucose - Point of Care 94 mg/dl (70-99)
[2024-11-22] MEDS: REMOVE LIDOCAINE PATCH 2 PATCH REMOVE (19:12)
[2024-11-22] MEDS: NORVASC 2.5 MG PO (19:19)
[2024-11-22] MEDS: MYLICON 80 MG PO (19:19)
[2024-11-22 21:21] LABS: Glucose - Point of Care 96 mg/dl (70-99)
[2024-11-22] MEDS: SEROQUEL 100 MG PO (21:54)
[2024-11-23] VITALS (7 sets, daily range): BP systolic 111–177; BP diastolic 81–93; BMI 24.8
[2024-11-23] MEDS: NSS 1000 IV (05:02)
[2024-11-23] MEDS: MAXIPIME 1000 MG IV ×2 (05:02→18:22)
[2024-11-23] MEDS: STERILE WATER FOR INJECTION 10 ML IV ×2 (05:02→18:22)
[2024-11-23 05:57] LABS: Glucose - Point of Care 80 mg/dl (70-99)
[2024-11-23] MEDS: NOVOLOG FLEXPEN-LOW RESISTANCE SC ×3 (06:43→18:35)
[2024-11-23 07:51] LABS: Hematocrit 30.6 % (39.0-52.0); Hemoglobin 9.9 g/dL (13.0-18.0); Mean Corp Hgb Conc. 32.4 g/dL (33.0-37.0); Mean Corpuscular Volume 95.3 fL (80.0-94.0); Platelet Count 271 10^3/uL (130-400); Red Cell Dist. Width 15.4 % (11.5-14.5)
[2024-11-23] MEDS: SODIUM BICARBONATE 1300 MG PO ×3 (08:05→21:23)
[2024-11-23] MEDS: FOLVITE 1 MG PO (08:06)
[2024-11-23] MEDS: DEPAKOTE ER (24 HR RELEASE) PO ×2 (08:06→08:17)
[2024-11-23] MEDS: WELLBUTRIN XL (24 hour extended release) 150 MG PO (08:06)
[2024-11-23] MEDS: LIDOCAINE 4% PATCH 2 PATCH TOPICAL (08:07)
[2024-11-23] MEDS: NORVASC 2.5 MG PO (08:12)
[2024-11-23 08:25] LABS: Blood Urea Nitrogen 24 mg/dl (9-20); Calcium 9.9 mg/dl (8.4-10.2); Carbon Dioxide 21 mmol/L (22-30); Chloride 113 mmol/L (98-107); Estimated Creatinine Clearance 27 ml/min; Glucose 67 mg/dl (70-99); Magnesium 1.7 mg/dl (1.6-2.3); Potassium 5.2 mmol/L (3.5-5.1); Sodium 140 mmol/L (135-145); eGFR 32.02
--- NOTE | 2024-11-23 09:15 | W.PN.HOSP.TC ---
Today's Communication/Plan
-
continue IVF - Bicarb
monitor labs
GI eval for ileus
continue Abx for UTI - follow Urology/ID recs
Assessment / Plan
Assessment / Plan
Physical Exam
General: No acute distress, appears comfortable at this time
HEENT: Normocephalic, Moist mucous membranes and Atraumatic
Respiratory: Clear
Cardiac: S1/S2 and Regular Rhythm; No Murmur or Rub
Abd: Soft, some tenderness on palpation, Distended, Bowel sounds present, Urostomy bag in place, right Nephrostomy tube in place
Musculoskeletal: No Clubbing, No Cyanosis and No Edema
Skin: No Rash
Neuro: AO x 3 conversant coherent
Psych: calm
74M Complicated urinary tract infection in patient with history of bladder cancer status post cystoprostatectomy ileal conduit and prior left ureteral stent who presents to the emergency department with feeling feverish and found to have a positive
UA with history of MDR in the past. Unfortunately was found to have MICHELLE with a creatinine of 2.9 and a BUN of 41 and potassium of 5.7. He also has newfound obstruction with a soft tissue mass in the right lower quadrant of the abdomen concerning
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 Otherwise VSS afebrile non-septic appearing.
Assessment:
Complicated urinary tract infection
Hx of bladder cancer s/p cystoprostatectomy ileal conduit (UTI related to obstructive mass)
- s/p IR eval and placement of R PCN 11/19
- ID following; continue Cefepime (Cefdinir at discharge)
- Urology following; patient will follow up with Dr. Frederick - [facility] for biopsy. 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
Obstructive MICHELLE
Metabolic acidosis
Hyperkalemia
- continue oral bicarb
- Lokelma x 1; monitor K
- hold nephrotoxins (including Metformin)
- continue IVF (Switch to bicarbonate) while remains NPO
Ileus
Constipation
- s/p suppository, enema with some BMs
- continue NPO, bowel rest
- trial Simethicone for ongoing belching
- GI evaluation
Type 2 DM
- holding Metformin with MICHELLE
- holding Glimepiride
- SSI while NPO
Bipolar disorder
- Continue with Depakote
- Continue bupropion
Essential [place]
- continue low dose Amlodipine 2.5 mg daily
- cont prn IV hydralazine SBP>160 or DBP>100
DVT prophylaxis: SCDs
Code: Full
Anticipated Discharge: > 48 hours
Subjective/Interval History
-
Date of Service: November 23, 2024
reports abd discomfort but lasting at least for 1 month
reports poor appetite, nausea/belching but no vomiting
last BM 2 days ago; passing gas
no fevers
Objective Data
-
Labs:
Laboratory Results
11/23/24
06:34
WBC 10.6
Hgb 9.9 L
Hct 30.6 L
Plt Count 271
Sodium 140
Potassium 5.2 H
Chloride 113 H
Carbon Dioxide 21 L
BUN 24 H
Creatinine 2.1 H
Glucose 67 L
Calcium 9.9
Vital Signs:
Vital Signs
Temp Pulse Resp BP Pulse Ox
98.1 F 94 16 176/85 97
11/23/24 07:00 11/23/24 07:00 11/23/24 07:00 11/23/24 07:00 11/23/24 07:00
I&O
11/22/24 11/23/24 11/24/24
06:59 06:59 06:59
Intake Total 3490 / 3490 1500 / 1500
Output Total 2024 1565 / 156
Balance 1465 / 1465 -65 / -65
Data Reviewed
-
Total Time Spent with Patient (in minutes): 42
Labs: Labs Reviewed by me
[2024-11-23] MEDS: SODIUM BICARBONATE 1150 MEQ IV ×2 (11:31→23:11)
[2024-11-23 12:19] LABS: Glucose - Point of Care 79 mg/dl (70-99)
--- NOTE | 2024-11-23 13:05 | CON.GI ---
Addendum entered and electronically signed by Erin Lloyd MD 11/23/24 17:28:
I saw and examined the patient.
The LICENSED EMBALMER SUPERVISOR or PA's note was reviewed and I agree with the plan
This patient is a 74-year-old man with a history of a complicated UTI, cystoprotatectomy, with abd distention, nausea, hiccups. he was given an enema 3 days ago and had a bm. none since then.
abd: distended but soft
CT scan (viewed personally) distended rectum with stool, stool in right colon, sb ileus
impression:
constipation
SB ileus
nausea
plan:
iv ppi bid
zofran prn
enema
check xray in am
ngt if vomits
keep electrolytes corrected
Original Note:
Consultation
-
Date/Time Consultation Requested: November 23, 2024
Date/Time Consultation Performed: November 23, 2024
Requesting Provider: Natalya Lou
Performing Provider: Erin Lloyd
Reason for Consultation: ileus, constipation
Medical History
Chief Complaint / HPI
Chief Complaint: ileus, constipation
History of Present Illness:
74 yo M who who is here for a complicated UTI after feeling feverish on 11/18.
He is experiencing nausea/belching. He reports that this has been going on for about 1 month but worsened last week around when he presented to the hospital. He reports that he vomited before he presented to the hospital, did not appreciate any
blood. Further discussion with nursing does not report any vomiting during this admission.
This admission, he had a R PCN placed 11/19.
He received enema and suppository few days prior with some BM passage after. Nursing reports nothing further since then. He is currently trialing simethicone.
He endorses passing flatus. Has been NPO since 11/22.
he denies any abdominal pain.
PMH: bipolar disorder, diabetes 2, HTN
PSH:
Reviewed chart records
06/2023: cystoprostatectomy, right lower quadrant urostomy and ileal conduit at [facility] for bladder cancer.
08/2022: cystoscopy, pyelograms, and transurethral resection of bladder tumor.
07/2021: Pathology report showed urothelial carcinoma.
Past Medical History
Past Medical History: HTN, NIDDM and Psychiatric (bipolar disorder)
Past Surgical History: Urological (cystoprostatectomy)
Social History
Alcohol: Occasional
Drug: None
Personal:
Living: With Family
Family History
Family History: Reviewed & Not Pertinent
Allergies / Home Medications
Allergy/AdvReac Type Severity Reaction Status Date / Time
Penicillins Allergy Hives; Verified 11/18/24 15:02
tolerated
cefepime
�Medication �Instructions �Recorded
bupropion HCl 150 mg 24 hr tablet, 150 mg PO DAILY Depression 12/06/23
extended release
glimepiride 2 mg tablet 2 mg PO BID Diabetes 12/06/23
metformin 500 mg tablet 500 mg PO BID Diabetes 12/06/23
quetiapine 100 mg tablet 100 mg PO HS Sleep 12/06/23
rosuvastatin 10 mg tablet 10 mg PO DAILY High Cholesterol 12/06/23
divalproex 500 mg tablet,extended 1,500 mg PO DAILY Mental 09/02/24
release 24 hr Health/Anxiety
folic acid 0.8 mg capsule 0.8 mg PO DAILY Supplement 09/02/24
sodium bicarbonate 650 mg tablet 1,300 mg (2 x 650 mg) PO TID #0 09/08/24
tabs
Review of Systems
-
History Source: Patient
Constitutional: Reports Fever
EENT: Reports No Symptoms
Respiratory: Reports No Symptoms
Cardiac: Reports No Symptoms
Abdomen/GI: Reports Nausea and Constipated
Musculoskeletal: Reports Other (back pain)
Skin: Reports No Symptoms
Neurological: Reports No Symptoms
Endocrine: Reports No Symptoms
Hematologic/Lymphatic: Reports No Symptoms
Vital Signs
Temp Pulse Resp BP Pulse Ox
97.6 F 95 18 111/81 96
11/23/24 11:00 11/23/24 11:00 11/23/24 11:00 11/23/24 11:00 11/23/24 11:00
Physical Exam
Exam
General: No Apparent Distress
HEENT: Anicteric
Respiratory: Clear
Cardiac: Regular Rhythm
GI: Non Tender, Distended and Other (hypoactive bowel sounds)
Genito-urinary: Other (right percutaneous nephrostomy tube)
Musculoskeletal: No Edema
Skin: Warm
Neuro: Awake and Alert
Psych: Calm
Results
WBC 10.6 10^3/uL (4.8-10.8) 11/23/24 06:34
Hgb 9.9 g/dL (13.0-18.0) L 11/23/24 06:34
Hct 30.6 % (39.0-52.0) L 11/23/24 06:34
MCV 95.3 fL (80.0-94.0) H 11/23/24 06:34
Plt Count 271 10^3/uL (130-400) 11/23/24 06:34
Absolute Neuts (auto) 8.0 10^3/uL (1.4-6.5) H 11/18/24 15:11
PT 14.0 Sec (11.4-14.6) 11/19/24 08:37
INR 1.03 11/19/24 08:37
Sodium 140 mmol/L (135-145) 11/23/24 06:34
Potassium 5.2 mmol/L (3.5-5.1) H 11/23/24 06:34
Chloride 113 mmol/L (98-107) H 11/23/24 06:34
Carbon Dioxide 21 mmol/L (22-30) L 11/23/24 06:34
BUN 24 mg/dl (9-20) H 11/23/24 06:34
Creatinine 2.1 mg/dL (0.7-1.3) H 11/23/24 06:34
Calcium 9.9 mg/dl (8.4-10.2) 11/23/24 06:34
Total Bilirubin 0.6 mg/dl (0.2-1.3) 11/18/24 15:11
AST 17 U/L (17-59) 11/18/24 15:11
ALT 10 U/L (0-50) 11/18/24 15:11
Alkaline Phosphatase 93 U/L (38-126) 11/18/24 15:11
Diagnostic Image Results:
CT Abdomen pelvis, 11/22/2024
Bowel: Prominent fluid and contrast-filled small bowel loops throughout the mid to lower abdomen, progressed from prior and likely related to ileus. No payton transition point. Diverticulosis coli without evidence for diverticulitis.
Peritoneum: Small volume abdominopelvic ascites, new from prior. No free intraperitoneal air. Probable stable ill-defined right lower quadrant soft tissue mass.
Reproductive Organs: Within normal limits.
Bladder: Cystoprostatectomy with ileal conduit change redemonstrated.
IMPRESSION:
Interval right percutaneous nephrostomy tube placement with interval resolution of previously seen right-sided hydroureteronephrosis.
Probable stable ill-defined right lower quadrant soft tissue mass.
Probable reactive small bowel ileus. Small volume abdominopelvic ascites, new from prior.
Unchanged T12 compression deformity.
Abdominal x-ray 11/20/2024:
FINDINGS:
Bowel: Intestinal bowel gas pattern is grossly nonobstructive. There is small to moderate volume scattered colonic stool.
Soft tissues: Bilateral nephrostomy catheters are seen.
Osseous structures: Osseous degenerative changes are noted.
Prior GI Procedures:
Colonoscopy:
03/26/2019
Impression:
- Diverticulosis in the sigmoid colon, in the descending colon, in the transverse colon and in the ascending colon.
- The examination was otherwise normal.
- No specimens collected.
Assessment / Plan
-
In summary, this is a 74 yo M PMH of bladder cancer s/p cystoprostatectomy with ileal conduit who presented with a complicated UTI with concern for possible recurrence of malignancy, s/p R PCN 11/19 for hydroureteronephrosis. More recently, he now
also developed symptoms (nausea, belching) concerning for ileus and constipation, prompting a GI consult.
# Ileus
# Constipation
- Patient endorses nausea, belching but no vomiting over the past few days.
- He endorses passing flatus, denies any BM since last week which occurred s/p enema/suppository.
- He denies abdominal pain.
- CT A/P read as small bowel ileus; however, noted an ill-defined mass in RLQ
- the ddx for ileus includes electrolyte abnormalities, reactive post-procedure, mechanical obstruction.
- In this patient, electrolytes are largely within normal limits.
- Reassuringly he is passing flatus.
- This may be a reactive ileus in the setting of infection with complicated UTI, post-procedure from percutaneous nephrostomy on 11/19, possible malignancy recurrence (ill-defined RLQ mass).
- He is on hydromorphone 0.25mg q4hprn.
- NPO since 11/22
Plan:
- Continue simethicone trial
- Continue ondansetron iv prn (QTc 401ms from EKG 11/18)
- Encourage out of bed/ambulation as tolerated
- Abdominal x-ray 11/24
- monitor electrolytes and replete as needed
- NPO since 11/22
- Follow-up urology recommendations
- Recommendations are not final until discussed with attending, Dr. Lloyd
- Will review with Dr. Lloyd if there is any need for decompression but currently passing gas.
Data Reviewed
-
Radiology: Report Reviewed by me
CT Scan: Report Reviewed by me
-
-
Thank you for consultation and allowing me to participate in the patient's care. Please call the store product demonstrator GI physician during the after hours with any questions or concerns.
--- NOTE | 2024-11-23 14:33 | W.PN.ID1 ---
Date of Service
Date of Service: November 23, 2024
Today's Communication
Continue antibiotics.
Assessment / Plan
Complicated urinary tract infection
Obstructive uropathy.
Leukocytosis
MICHELLE
DM
Seizure disorder
HTN
Dyslipidemia
Bipolar disorder
Bladder CA
Recommendations:
White count normalized today.
Outpatient cultures reviewed with recovery of Serratia marcescens
Continue with cefepime for the present. Dose has been adjusted for renal insufficiency.
- Patient can likely be transition to oral cefdinir at time of discharge. (Outpatient Serratia isolate susceptible to ceftriaxone)
Monitor creatinine
Follow white count and temperature curve.
����������������������������������������������������������
Chief Complaint
-: UTI
Subjective / Review of Systems
Patient seen and examined. Reports some low abdominal discomfort today. Denies fevers or chills.
Review of Systems: No Fever and No Chills
Vital Signs / Physical Exam
Vital Signs
Vital Signs
Temp Pulse Resp BP Pulse Ox
97.6 F 95 18 111/81 96
11/23/24 11:00 11/23/24 11:00 11/23/24 11:00 11/23/24 11:00 11/23/24 11:00
Physical Exam
Constitutional: No Acute Distress, Comfortable and Non-toxic
Eyes: Sclera Anicteric
Pulmonary: Clear and Non Labored
Gastrointestinal: Soft, Non Tender and Non Distended
Genito-Urinary: Other (Right urostomy in place. Right PCN in place)
Extremities: Edema; Negative Cyanosis or Erythema
Neurological: Awake and Alert
Psychological: Calm
Objective Data
Lab Data
Lab Results
11/23/24 06:34
11/23/24 06:34
PT 14.0 Sec (11.4-14.6) 11/19/24 08:37
INR 1.03 11/19/24 08:37
Estimated Creat Clear 27 ml/min 11/23/24 06:34
Lactic Acid Cancelled 11/18/24 21:45
Total Bilirubin 0.6 mg/dl (0.2-1.3) 11/18/24 15:11
AST 17 U/L (17-59) 11/18/24 15:11
ALT 10 U/L (0-50) 11/18/24 15:11
Alkaline Phosphatase 93 U/L (38-126) 11/18/24 15:11
Most recent labs reviewed.
Micro Results:
11/18/24 15:11 Blood Culture - Preliminary
Blood/Venous No Growth in 4 days- Final report to follow
11/19/24 15:29 Urine Culture - Final
Urine NO GROWTH
11/18/24 17:52 Urine Culture - Final
Urine
Collection Date: 11/11/2024 12:02:00
Result Recd: 11/17/2024 10:09:30
Report: 11/17/2024 10:05:00
Ordering Physician: TOÑITO SANTANA
Urinalysis, Routine - [id number]
NAME VALUE REFERENCE RANGE
Specific [place] 1.018 1.005-1.030
pH 6.0 5.0-7.5
Urine-Color Yellow Yellow
Appearance Turbid A Clear
WBC Esterase 3+ A Negative
Protein 3+ A Negative/Trace
Glucose Negative Negative
Ketones Negative Negative
Occult Blood 1+ A Negative
Bilirubin Negative Negative
Nitrite, Urine Positive Negative
Microscopic Examination See below:
Microscopic was indicated and was performed.
WBC >30 A 0 - 5 (/hpf)
RBC 3-10 A 0 - 2 (/hpf)
Epithelial Cells 0-10 0 - 10 (/hpf)
Bacteria Many None seen/Few
11/11[facility]2024 - [facility]
Serratia marcescens - Identified by MALDI-TOF mass spectrometry.
Greater than 100,000 colony forming units per mL
Antibiotic
Amikacin S
Amoxicillin/Clavulanic Acid R
Aztreonam S
Cefepime S
Cefotaxime S
Cefoxitin R
Ceftazidime S
Ceftazidime/avibactam S
Ceftriaxone S
Cefuroxime R
Ciprofloxacin I
Ertapenem S
Gentamicin S
Levofloxacin I
Meropenem S
Meropenem/vaborbactam S
Nitrofurantoin R
Tetracycline R
Tobramycin S
Imaging:
11/18/2024 CT abdomen/pelvis without contrast: A new soft tissue mass in the right lower quadrant of the abdomen concerning for recurrent disease measuring approximately 4.4 x 4.0 x 5.4 cm. Obstruction of the distal right ureter is noted at this
level with upstream moderate right hydroureteronephrosis noted. Patient is status post previous cystoprostatectomy with right lower quadrant urostomy and ileal conduit. There is a large amount of stool in the rectum concerning for
constipation/fecal impaction. Please see full dictation for additional detail.
--- NOTE | 2024-11-23 14:45 | CM ---
Chart reviewed. Care ongoing
Cont abx for UTI, likely able to transition to oral at d/c
Cont IVF
Plan: Home, MELISSA w/ [facility]
[2024-11-23] MEDS: APRESOLINE 5 MG IV ×2 (16:44→21:22)
[2024-11-23 18:31] LABS: Glucose - Point of Care 69 mg/dl (70-99)
[2024-11-23] MEDS: DEXTROSE 50% SYRINGE 12.5 GRAMS IV (18:44)
[2024-11-23 19:03] LABS: Glucose - Point of Care 149 mg/dl (70-99)
[2024-11-23] MEDS: REMOVE LIDOCAINE PATCH 1 PATCH REMOVE (20:44)
[2024-11-23] MEDS: PROTONIX IV 40 MG IV (20:45)
[2024-11-23] MEDS: NSS (PRESERVATIVE FREE) 10 ML IV (20:45)
[2024-11-23 20:56] LABS: Glucose - Point of Care 93 mg/dl (70-99)
[2024-11-23] MEDS: SEROQUEL 100 MG PO (21:22)
[2024-11-23 23:14] LABS: Glucose - Point of Care 80 mg/dl (70-99)
[2024-11-24] VITALS (7 sets, daily range): BP systolic 143–165; BP diastolic 69–94
[2024-11-24 03:33] LABS: Glucose - Point of Care 85 mg/dl (70-99)
[2024-11-24 06:04] LABS: Glucose - Point of Care 86 mg/dl (70-99)
[2024-11-24] MEDS: STERILE WATER FOR INJECTION 10 ML IV ×2 (06:18→17:09)
[2024-11-24] MEDS: MAXIPIME 1000 MG IV ×2 (06:18→17:08)
[2024-11-24] MEDS: NOVOLOG FLEXPEN-LOW RESISTANCE SC ×2 (07:41→16:55)
[2024-11-24] MEDS: LIDOCAINE 4% PATCH TOPICAL ×2 (07:41→07:51)
[2024-11-24] MEDS: NSS (PRESERVATIVE FREE) 10 ML IV ×2 (07:42→19:38)
[2024-11-24] MEDS: DEPAKOTE ER (24 HR RELEASE) 1500 MG PO (07:42)
[2024-11-24] MEDS: SODIUM BICARBONATE 1300 MG PO ×3 (07:42→21:16)
[2024-11-24] MEDS: PROTONIX IV 40 MG IV ×2 (07:42→19:38)
[2024-11-24] MEDS: WELLBUTRIN XL (24 hour extended release) 150 MG PO (07:42)
[2024-11-24] MEDS: FOLVITE 1 MG PO (07:42)
[2024-11-24 07:45] LABS: Hematocrit 26.6 % (39.0-52.0); Hemoglobin 8.7 g/dL (13.0-18.0); Mean Corp Hgb Conc. 32.7 g/dL (33.0-37.0); Mean Corpuscular Volume 94.0 fL (80.0-94.0); Platelet Count 265 10^3/uL (130-400); Red Cell Dist. Width 14.8 % (11.5-14.5)
[2024-11-24] MEDS: NORVASC 2.5 MG PO ×2 (07:45→10:30)
[2024-11-24 08:14] LABS: Blood Urea Nitrogen 25 mg/dl (9-20); Calcium 9.5 mg/dl (8.4-10.2); Carbon Dioxide 26 mmol/L (22-30); Chloride 105 mmol/L (98-107); Estimated Creatinine Clearance 30 ml/min; Glucose 87 mg/dl (70-99); Magnesium 1.6 mg/dl (1.6-2.3); Potassium 4.1 mmol/L (3.5-5.1); Sodium 140 mmol/L (135-145); eGFR 36.11
[2024-11-24 08:49] LABS: Glucose - Point of Care 100 mg/dl (70-99)
[2024-11-24] MEDS: DILAUDID 0.25 MG IV (08:55)
--- NOTE | 2024-11-24 09:44 | W.PN.HOSP.TC ---
Today's Communication/Plan
-
clears
follow GI recs
titrate tylenol for back pain
PT/OT
Assessment / Plan
Assessment / Plan
Physical Exam
General: No acute distress, appears comfortable at this time
HEENT: Normocephalic, Moist mucous membranes and Atraumatic
Respiratory: Clear
Cardiac: S1/S2 and Regular Rhythm; No Murmur or Rub
Abd: Soft, some tenderness on palpation, Distended, Bowel sounds present, Urostomy bag in place, right Nephrostomy tube in place
Musculoskeletal: No Clubbing, No Cyanosis and No Edema
Skin: No Rash
Neuro: AO x 3 conversant coherent
Psych: calm
74M Complicated urinary tract infection in patient with history of bladder cancer status post cystoprostatectomy ileal conduit and prior left ureteral stent who presents to the emergency department with feeling feverish and found to have a positive
UA with history of MDR in the past. Unfortunately was found to have MICHELLE with a creatinine of 2.9 and a BUN of 41 and potassium of 5.7. He also has newfound obstruction with a soft tissue mass in the right lower quadrant of the abdomen concerning
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 Otherwise VSS afebrile non-septic appearing.
Assessment:
Complicated urinary tract infection
Hx of bladder cancer s/p cystoprostatectomy ileal conduit (UTI related to obstructive mass)
- s/p IR eval and placement of R PCN 11/19
- ID following; continue Cefepime (Cefdinir at discharge)
- Urology following; patient will follow up with Dr. Yoly [facility] for biopsy. 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
Obstructive MICHELLE
Metabolic acidosis
Hyperkalemia
- continue oral bicarb
- Lokelma x 1; monitor K
- hold nephrotoxins (including Metformin)
- continue IVF (bicarbonate) while remains NPO
Ileus
Constipation
- s/p suppository, enema with some BMs
- s/p subsequent additional enema 11/23 with large BM
- repeat AXR with contrast progression into colon
- trial clears
- continue Simethicone for ongoing belching
- GI following
Type 2 DM
- holding Metformin with MICHELLE
- holding Glimepiride
- SSI while NPO
Bipolar disorder
- Continue with Depakote
- Continue bupropion
Essential TN
- increase Amlodipine to 5mg daily
- cont prn IV hydralazine SBP>160 or DBP>100
DVT prophylaxis: SCDs
Code: Full
Anticipated Discharge: 24 - 48 hours
Subjective/Interval History
-
Date of Service: November 24, 2024
s/p enema yesterday with large BM
no new complaints, reports that hiccups improving
has chronic back pain and reports that he needs at least 1 hour a day to get out of bed
Objective Data
-
Labs:
Laboratory Results
11/24/24
06:43
WBC 9.0
Hgb 8.7 L
Hct 26.6 L
Plt Count 265
Sodium 140
Potassium 4.1
Chloride 105
Carbon Dioxide 26
BUN 25 H
Creatinine 1.9 H
Glucose 87
Calcium 9.5
Vital Signs:
Vital Signs
Temp Pulse Resp BP Pulse Ox
98.1 F 94 16 175/88 97
11/24/24 07:00 11/24/24 07:45 11/24/24 07:00 11/24/24 07:45 11/24/24 07:00
I&O
11/23/24 11/24/24 11/25/24
06:59 06:59 06:59
Intake Total 1500 / 1500 1200 / 1200
Output Total 1565 / 1565 4400 / 4400
Balance -65 / -65 -3200 / -3200
Data Reviewed
-
Total Time Spent with Patient (in minutes): 42
Labs: Labs Reviewed by me
[2024-11-24] MEDS: TYLENOL 1000 MG PO ×3 (10:30→22:42)
[2024-11-24 12:17] LABS: Glucose - Point of Care 277 mg/dl (70-99)
[2024-11-24] MEDS: NOVOLOG FLEXPEN-LOW RESISTANCE 3 UNITS SC (12:32)
--- NOTE | 2024-11-24 13:52 | W.PN.ID1 ---
Date of Service
Date of Service: November 24, 2024
Today's Communication
Continue antibiotics.
Assessment / Plan
Complicated urinary tract infection 2* Serratia marcescens
Obstructive uropathy
- s/p right PCN placement
Leukocytosis
MICHELLE
DM
Seizure disorder
HTN
Dyslipidemia
Bipolar disorder
Bladder CA
Recommendations:
White count normalized today.
Outpatient cultures reviewed with recovery of Serratia marcescens
Continue with cefepime (d#6). Dose has been adjusted for renal insufficiency.
- Patient can likely be transition to oral cefdinir at time of discharge. (Outpatient Serratia isolate susceptible to ceftriaxone)
- Complete a 14 day course of abx.
Monitor creatinine
Follow white count and temperature curve.
����������������������������������������������������������
Chief Complaint
-: UTI
Subjective / Review of Systems
Review of Systems: No Fever and No Chills
Vital Signs / Physical Exam
Vital Signs
Vital Signs
Temp Pulse Resp BP Pulse Ox
97.6 F 92 14 165/80 97
11/24/24 10:34 11/24/24 10:34 11/24/24 10:34 11/24/24 10:34 11/24/24 10:34
Physical Exam
Constitutional: No Acute Distress, Comfortable and Non-toxic
Eyes: Sclera Anicteric
Pulmonary: Clear and Non Labored
Gastrointestinal: Soft, Non Tender and Non Distended
Genito-Urinary: Other (Right urostomy in place. Right PCN in place)
Extremities: Edema; Negative Cyanosis or Erythema
Neurological: Awake and Alert
Psychological: Calm
Objective Data
Lab Data
Lab Results
11/24/24 06:43
11/24/24 06:43
PT 14.0 Sec (11.4-14.6) 11/19/24 08:37
INR 1.03 11/19/24 08:37
Estimated Creat Clear 30 ml/min 11/24/24 06:43
Lactic Acid Cancelled 11/18/24 21:45
Total Bilirubin 0.6 mg/dl (0.2-1.3) 11/18/24 15:11
AST 17 U/L (17-59) 11/18/24 15:11
ALT 10 U/L (0-50) 11/18/24 15:11
Alkaline Phosphatase 93 U/L (38-126) 11/18/24 15:11
Most recent labs reviewed.
Micro Results:
11/18/24 15:11 Blood Culture - Final
Blood/Venous No Growth - Final Report
11/19/24 15:29 Urine Culture - Final
Urine NO GROWTH
11/18/24 17:52 Urine Culture - Final
Urine
Collection Date: 11/11/2024 12:02:00
Result Recd: 11/17/2024 10:09:30
Report: 11/17/2024 10:05:00
Ordering Physician: TOÑITO SANTANA
Urinalysis, Routine - [id number]
NAME VALUE REFERENCE RANGE
Specific [place] 1.018 1.005-1.030
pH 6.0 5.0-7.5
Urine-Color Yellow Yellow
Appearance Turbid A Clear
WBC Esterase 3+ A Negative
Protein 3+ A Negative/Trace
Glucose Negative Negative
Ketones Negative Negative
Occult Blood 1+ A Negative
Bilirubin Negative Negative
Nitrite, Urine Positive Negative
Microscopic Examination See below:
Microscopic was indicated and was performed.
WBC >30 A 0 - 5 (/hpf)
RBC 3-10 A 0 - 2 (/hpf)
Epithelial Cells 0-10 0 - 10 (/hpf)
Bacteria Many None seen/Few
11/11/2024 - [facility]
Serratia marcescens - Identified by MALDI-TOF mass spectrometry.
Greater than 100,000 colony forming units per mL
Antibiotic
Amikacin S
Amoxicillin/Clavulanic Acid R
Aztreonam S
Cefepime S
Cefotaxime S
Cefoxitin R
Ceftazidime S
Ceftazidime/avibactam S
Ceftriaxone S
Cefuroxime R
Ciprofloxacin I
Ertapenem S
Gentamicin S
Levofloxacin I
Meropenem S
Meropenem/vaborbactam S
Nitrofurantoin R
Tetracycline R
Tobramycin S
Imaging:
11/18/2024 CT abdomen/pelvis without contrast: A new soft tissue mass in the right lower quadrant of the abdomen concerning for recurrent disease measuring approximately 4.4 x 4.0 x 5.4 cm. Obstruction of the distal right ureter is noted at this
level with upstream moderate right hydroureteronephrosis noted. Patient is status post previous cystoprostatectomy with right lower quadrant urostomy and ileal conduit. There is a large amount of stool in the rectum concerning for
constipation/fecal impaction. Please see full dictation for additional detail.
--- NOTE | 2024-11-24 14:05 | W.PN.GI.CBS2 ---
Addendum entered and electronically signed by Nancy Lobo Do, MD 11/24/24 15:47:
I saw and evaluated the patient. I reviewed the resident�s note and agree with findings and plan as documented in the resident�s note.
Raul had large BM post enema yesterday night. His abd feels less bloated. He is tolerating CLD. He is sitting up OOB in chair. Vitals stable exam soft abdomen obese, NTTP. Labs reviewed
Recommendations
- Adv to full liquid diet
- Serial abd exam if tolerating consider advancement to low residue tomorrow
- Add miralax daily today
- Encourage ambulation
- Can follow up with Dr Lloyd outpatient basis in our GI office
Will follow with you
Original Note:
Today's Communication / Plan
-
- Recommendations are not final until discussed with attending, Dr. Escalante
- Keep on CLD for now, monitor for flatus and bowel movements
- Continue simethicone prn
- Continue ondansetron iv prn
- Continue pantoprazole IV bid
- Encourage out of bed/ambulation as tolerated
- monitor electrolytes and replete as needed
- if vomits, decompression can be considered
- consider abdominal x-ray in AM.
Assessment / Plan
-
In summary, this is a 74 yo M PMH of bladder cancer s/p cystoprostatectomy with ileal conduit who presented with a complicated UTI with concern for possible recurrence of malignancy, s/p R PCN 11/19 for hydroureteronephrosis. GI has been consulted
for management of ileus and constipation.
# Ileus
# Constipation
- Received enema yesterday followed by a bowel movement
- He is on CLD since yesterday, but now denies passing flatus.
- Abdominal xray shows probable small bowel ileus with progression of oral contrast into colon.
- Xray suggests that motility is returning (progression of oral contrast), and clinically he feels better.
- However, since he not passing flatus, may be reasonable to obtain an additional abdominal x-ray tomorrow morning.
- He continues to deny abdominal pain.
- His electrolytes are within normal limits (Na 140, K 4.1)
- This may be a reactive ileus in the setting of infection with complicated UTI, post-procedure from percutaneous nephrostomy on 11/19, possible malignancy recurrence (ill-defined RLQ mass).
Plan:
- Recommendations are not final until discussed with attending, Dr. Escalante
- Keep on CLD for now, monitor for flatus and bowel movements
- Continue simethicone prn
- Continue ondansetron iv prn (QTc 401ms from EKG 11/18)
- Continue pantoprazole IV bid
- Encourage out of bed/ambulation as tolerated
- monitor electrolytes and replete as needed
- if vomits, decompression can be considered
- consider abdominal x-ray in AM.
Subjective
Subjective
Date of Service: November 24, 2024
Today, he feels better after receiving an enema 11/23 evening followed by a bowel movement.
No other complaints, reports he started a clear liquid diet. Denies passing flatus today. No other bowel movements.
Denies any vomiting.
Objective
Data Reviewed
Laboratory Data:
Laboratory Results
11/24/24 06:43
11/24/24 06:43
Laboratory Results
PT 14.0 Sec (11.4-14.6) 11/19/24 08:37
INR 1.03 11/19/24 08:37
Phosphorus 3.1 mg/dl (2.5-4.5) 11/24/24 06:43
Magnesium 1.6 mg/dl (1.6-2.3) 11/24/24 06:43
Total Bilirubin 0.6 mg/dl (0.2-1.3) 11/18/24 15:11
AST 17 U/L (17-59) 11/18/24 15:11
ALT 10 U/L (0-50) 11/18/24 15:11
Alkaline Phosphatase 93 U/L (38-126) 11/18/24 15:11
Vital Signs and I&O:
Vital Signs
Temp Pulse Resp BP Pulse Ox
97.6 F 92 14 165/80 97
11/24/24 10:34 11/24/24 10:34 11/24/24 10:34 11/24/24 10:34 11/24/24 10:34
I&O
11/23/24 11/24/24 11/25/24
06:59 06:59 06:59
Intake Total 1500 / 1500 1200 / 1200
Output Total 1565 / 1565 4400 / 4400
Balance -65 / -65 -3200 / -3200
Imaging:
abdominal x-ray 11/24
IMPRESSION:
Persistent probable small bowel ileus. Oral contrast has progressed through the colon.
Physical Exam
Physical Exam
HEENT: Anicteric
Cardiology: Other (no murmurs on my exam)
Pulmonary: Clear
GI: Soft, Distended (improved from yesterday on my exam), Non Tender and Normal Bowel Sounds (hypoactive bowel sounds)
Extremities: No Edema
[2024-11-24] MEDS: MIRALAX 17 GRAMS PO (16:00)
[2024-11-24 16:27] LABS: Glucose - Point of Care 133 mg/dl (70-99)
[2024-11-24] MEDS: TYLENOL 650 MG PO (19:40)
[2024-11-24] MEDS: REMOVE LIDOCAINE PATCH REMOVE (19:56)
[2024-11-24] MEDS: SEROQUEL 100 MG PO (21:15)
[2024-11-24 21:43] LABS: Glucose - Point of Care 145 mg/dl (70-99)
[2024-11-25] VITALS (7 sets, daily range): BP systolic 139–163; BP diastolic 80–85; BMI 24.8
[2024-11-25] MEDS: MAXIPIME 1000 MG IV ×2 (05:07→18:38)
[2024-11-25] MEDS: STERILE WATER FOR INJECTION 10 ML IV ×2 (05:08→18:40)
[2024-11-25] MEDS: DILAUDID 0.25 MG IV (05:17)
[2024-11-25 08:03] LABS: Glucose - Point of Care 131 mg/dl (70-99)
[2024-11-25] MEDS: DEPAKOTE ER (24 HR RELEASE) 1500 MG PO (08:12)
[2024-11-25] MEDS: NOVOLOG FLEXPEN-LOW RESISTANCE SC ×2 (08:12→18:38)
[2024-11-25] MEDS: PROTONIX IV 40 MG IV ×2 (08:20→19:58)
[2024-11-25] MEDS: NSS (PRESERVATIVE FREE) 10 ML IV ×2 (08:20→19:58)
[2024-11-25] MEDS: NORVASC 5 MG PO (08:20)
[2024-11-25] MEDS: FLUSH (NSS) 1 FLUSH IV (08:23)
[2024-11-25] MEDS: MIRALAX 17 GRAMS PO (08:24)
[2024-11-25] MEDS: WELLBUTRIN XL (24 hour extended release) 150 MG PO (08:25)
[2024-11-25] MEDS: TYLENOL PO (08:26)
[2024-11-25] MEDS: SODIUM BICARBONATE 1300 MG PO ×3 (08:27→21:34)
[2024-11-25] MEDS: FOLVITE 1 MG PO (08:27)
[2024-11-25] MEDS: LIDOCAINE 4% PATCH TOPICAL ×2 (08:28→08:31)
[2024-11-25] MEDS: PEPCID 20 MG PO (08:34)
--- NOTE | 2024-11-25 09:04 | W.PN.UPDATE ---
Update Note
Progress Note Update
Patient and son decided that given patient has multiple ongoing medical issues this admission and desire to minimize hospitalizations/trips, they wish to pursue biopsy of ureteral/pelvic mass [facility].
Original plan was to F/U w/ Dr. Frederick @[place] as expressed by patient this weekend.
s/p right PCN placement
- IR consult for evaluation of percutaneous biopsy of pelvic mass (d/w Dr. Gillette)
- will need contrast-enhanced imaging to delineate anatomy for consideration of biopsy per IR
- due to renal function, CT w/ IV contrast suboptimal - MRI Pelvis w/wo IV contrast ordered by Hospitalist
- Maintain right PCN to drainage, ileal conduit to bag
- Trend Cr
F
D/w Dr. Gillette.
D/w Dr. Lou.
[2024-11-25 09:21] LABS: Hematocrit 28.8 % (39.0-52.0); Hemoglobin 9.1 g/dL (13.0-18.0); Mean Corp Hgb Conc. 31.6 g/dL (33.0-37.0); Mean Corpuscular Volume 92.9 fL (80.0-94.0); Platelet Count 285 10^3/uL (130-400); Red Cell Dist. Width 14.9 % (11.5-14.5)
[2024-11-25 09:55] LABS: Blood Urea Nitrogen 24 mg/dl (9-20); Calcium 9.6 mg/dl (8.4-10.2); Carbon Dioxide 27 mmol/L (22-30); Chloride 105 mmol/L (98-107); Estimated Creatinine Clearance 30 ml/min; Glucose 118 mg/dl (70-99); Magnesium 1.7 mg/dl (1.6-2.3); Potassium 4.0 mmol/L (3.5-5.1); Sodium 140 mmol/L (135-145); eGFR 36.11
--- NOTE | 2024-11-25 10:36 | W.PN.HOSP.TC ---
Today's Communication/Plan
-
MRI pelvis; IR/urology following
advanced LRD; GI following
Abx as per ID
dc planning to SNF
Assessment / Plan
Assessment / Plan
Physical Exam
General: No acute distress, appears comfortable at this time
HEENT: Normocephalic, Moist mucous membranes and Atraumatic
Respiratory: Clear
Cardiac: S1/S2 and Regular Rhythm; No Murmur or Rub
Abd: Soft, some tenderness on palpation, Distended, Bowel sounds present, Urostomy bag in place, right Nephrostomy tube in place
Musculoskeletal: No Clubbing, No Cyanosis and No Edema
Skin: No Rash
Neuro: AO x 3 conversant coherent
Psych: calm
74M Complicated urinary tract infection in patient with history of bladder cancer status post cystoprostatectomy ileal conduit and prior left ureteral stent who presents to the emergency department with feeling feverish and found to have a positive
UA with history of MDR in the past. Unfortunately was found to have MICHELLE with a creatinine of 2.9 and a BUN of 41 and potassium of 5.7. He also has newfound obstruction with a soft tissue mass in the right lower quadrant of the abdomen concerning
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 Otherwise VSS afebrile non-septic appearing.
Assessment:
Complicated urinary tract infection
Hx of bladder cancer s/p cystoprostatectomy ileal conduit (UTI related to obstructive mass)
- s/p IR eval and placement of R PCN 11/19
- ID following; continue Cefepime (Cefdinir at discharge) through 12/02/24
- Urology following; patient originally planned for follow up with Dr. [facility] for biopsy of soft tissue mass w/ malignant obstruction of right ureter indicative of cancer recurrence. But family has requested pursuot at [facility]; MRI
ordered after discussion with IR/urology before Perc biopsy attempt.
Obstructive MICHELLE
Metabolic acidosis
Hyperkalemia
- continue oral bicarb
- Lokelma x 1; monitor K
- hold nephrotoxins (including Metformin)
- Cr stable 1.9
Ileus
Constipation
- s/p suppository, enema with some BMs
- s/p subsequent additional enema 11/23 with large BM and 11/24
- repeat AXR with contrast progression into colon; improving on todays AXR
- diet: trial LRD
- continue Simethicone for ongoing belching
- GI following
Type 2 DM
- holding Metformin with MICHELLE
- holding Glimepiride
- SSI while NPO
Bipolar disorder
- Continue with Depakote
- Continue bupropion
Essential TN
- increase Amlodipine to 5mg daily
- cont prn IV hydralazine SBP>160 or DBP>100
DVT prophylaxis: SCDs
Code: Full
Anticipated Discharge: > 48 hours
Subjective/Interval History
-
Date of Service: November 25, 2024
tolerating full liquids
reports additional BM yesterday
Objective Data
-
Labs:
Laboratory Results
11/25/24
08:38
WBC 10.3
Hgb 9.1 L
Hct 28.8 L
Plt Count 285
Sodium 140
Potassium 4.0
Chloride 105
Carbon Dioxide 27
BUN 24 H
Creatinine 1.9 H
Glucose 118 H
Calcium 9.6
Vital Signs:
Vital Signs
Temp Pulse Resp BP Pulse Ox
98.3 F 78 16 163/83 98
11/25/24 07:05 11/25/24 07:05 11/25/24 07:05 11/25/24 07:05 11/25/24 07:05
I&O
11/24/24 11/25/24 11/26/24
06:59 06:59 06:59
Intake Total 1200 / 1200 1210 / 1210
Output Total 4400 / 4400 2150 / 2150
Balance -3200 / -3200 -940 / -940
Data Reviewed
-
Total Time Spent with Patient (in minutes): 42
Labs: Labs Reviewed by me
--- NOTE | 2024-11-25 11:15 | CM ---
Chart reviewed. Care ongoing.
Cont IV abx, will transition to oral at d/c
Therapy rec SNF at d/c. Discussed w/ patient bedside, agreeable to SNF. Patient prefers [facility]. CM encouraged additional facilities to have options. CM provided Medicare.gov list to patient.
Per hospitalist, tentative d/c on Saturday
Patient will require an auth
Plan: SNF
[2024-11-25 11:52] LABS: Glucose - Point of Care 281 mg/dl (70-99)
[2024-11-25] MEDS: NOVOLOG FLEXPEN-LOW RESISTANCE 3 UNITS SC (12:14)
--- NOTE | 2024-11-25 12:32 | W.PN.ID1 ---
Date of Service
Date of Service: November 25, 2024
Today's Communication
Continue antibiotics
Assessment / Plan
Complicated urinary tract infection 2* Serratia marcescens
Obstructive uropathy
- s/p right PCN placement
Leukocytosis
MICHELLE
DM
Seizure disorder
HTN
Dyslipidemia
Bipolar disorder
Bladder CA
Recommendations:
White count normal.
Outpatient cultures reviewed with recovery of Serratia marcescens
Continue with cefepime (d#7). Dose has been adjusted for renal insufficiency.
Patient for further workup and biopsy of abdominal mass.
- Patient can likely be transition to oral cefdinir at time of discharge. (Outpatient Serratia isolate susceptible to ceftriaxone)
- Complete a 14 day course of abx.
Monitor creatinine
Follow white count and temperature curve.
����������������������������������������������������������
Chief Complaint
-: UTI
Subjective / Review of Systems
Patient seen and examined. Reports ongoing low back discomfort. Denies fevers or chills.
Review of Systems: No Fever and No Chills
Vital Signs / Physical Exam
Vital Signs
Vital Signs
Temp Pulse Resp BP Pulse Ox
97.6 F 95 20 156/82 97
11/25/24 11:18 11/25/24 11:18 11/25/24 11:18 11/25/24 11:18 11/25/24 11:18
Physical Exam
Constitutional: No Acute Distress, Comfortable and Non-toxic
Eyes: Sclera Anicteric
Cardiovascular: S1/S2; Negative S3/S4
Pulmonary: Clear and Non Labored
Gastrointestinal: Soft, Non Tender and Non Distended
Genito-Urinary: Other (Right urostomy in place. Right PCN in place; clear urine)
Extremities: Edema; Negative Cyanosis or Erythema
Neurological: Awake and Alert
Psychological: Calm
Objective Data
Lab Data
Lab Results
11/25/24 08:38
11/25/24 08:38
PT 14.0 Sec (11.4-14.6) 11/19/24 08:37
INR 1.03 11/19/24 08:37
Estimated Creat Clear 30 ml/min 11/25/24 08:38
Lactic Acid Cancelled 11/18/24 21:45
Total Bilirubin 0.6 mg/dl (0.2-1.3) 11/18/24 15:11
AST 17 U/L (17-59) 11/18/24 15:11
ALT 10 U/L (0-50) 11/18/24 15:11
Alkaline Phosphatase 93 U/L (38-126) 11/18/24 15:11
Most recent labs reviewed.
Micro Results:
11/18/24 15:11 Blood Culture - Final
Blood/Venous No Growth - Final Report
11/19/24 15:29 Urine Culture - Final
Urine NO GROWTH
11/18/24 17:52 Urine Culture - Final
Urine
Collection Date: 11/11/2024 12:02:00
Result Recd: 11/17/2024 10:09:30
Report: 11/17/2024 10:05:00
Ordering Physician: TOÑITO SANTANA
Urinalysis, Routine - [id number]
NAME VALUE REFERENCE RANGE
Specific [place] 1.018 1.005-1.030
pH 6.0 5.0-7.5
Urine-Color Yellow Yellow
Appearance Turbid A Clear
WBC Esterase 3+ A Negative
Protein 3+ A Negative/Trace
Glucose Negative Negative
Ketones Negative Negative
Occult Blood 1+ A Negative
Bilirubin Negative Negative
Nitrite, Urine Positive Negative
Microscopic Examination See below:
Microscopic was indicated and was performed.
WBC >30 A 0 - 5 (/hpf)
RBC 3-10 A 0 - 2 (/hpf)
Epithelial Cells 0-10 0 - 10 (/hpf)
Bacteria Many None seen/Few
11/11/2024 - [facility]
Serratia marcescens - Identified by MALDI-TOF mass spectrometry.
Greater than 100,000 colony forming units per mL
Antibiotic
Amikacin S
Amoxicillin/Clavulanic Acid R
Aztreonam S
Cefepime S
Cefotaxime S
Cefoxitin R
Ceftazidime S
Ceftazidime/avibactam S
Ceftriaxone S
Cefuroxime R
Ciprofloxacin I
Ertapenem S
Gentamicin S
Levofloxacin I
Meropenem S
Meropenem/vaborbactam S
Nitrofurantoin R
Tetracycline R
Tobramycin S
Imaging:
11/18/2024 CT abdomen/pelvis without contrast: A new soft tissue mass in the right lower quadrant of the abdomen concerning for recurrent disease measuring approximately 4.4 x 4.0 x 5.4 cm. Obstruction of the distal right ureter is noted at this
level with upstream moderate right hydroureteronephrosis noted. Patient is status post previous cystoprostatectomy with right lower quadrant urostomy and ileal conduit. There is a large amount of stool in the rectum concerning for
constipation/fecal impaction. Please see full dictation for additional detail.
--- NOTE | 2024-11-25 15:57 | W.PN.GI.CBS2 ---
Today's Communication / Plan
-
Tolerating low residue diet
C/w miralax
GI will sign off please call for ?
Assessment / Plan
-
74 yo M PMH of bladder cancer s/p cystoprostatectomy with ileal conduit who presented with a complicated UTI with concern for possible recurrence of malignancy, s/p R PCN 11/19 for hydroureteronephrosis. GI has been consulted for management of ileus
and constipation.
Recommendations
- AXR improving
- Tolerating low residue diet
- Cw miralax daily
- Encourage ambulation
- Can follow up with Dr Lloyd outpatient basis in our GI office
GI will sign off please call for ?
Subjective
Subjective
Date of Service: November 25, 2024
He feels well. Tolerating lowrsidue diet. Less bloating.
Objective
Data Reviewed
Laboratory Data:
Laboratory Results
11/25/24 08:38
11/25/24 08:38
Laboratory Results
PT 14.0 Sec (11.4-14.6) 11/19/24 08:37
INR 1.03 11/19/24 08:37
Phosphorus 3.0 mg/dl (2.5-4.5) 11/25/24 08:38
Magnesium 1.7 mg/dl (1.6-2.3) 11/25/24 08:38
Total Bilirubin 0.6 mg/dl (0.2-1.3) 11/18/24 15:11
AST 17 U/L (17-59) 11/18/24 15:11
ALT 10 U/L (0-50) 11/18/24 15:11
Alkaline Phosphatase 93 U/L (38-126) 11/18/24 15:11
Vital Signs and I&O:
Vital Signs
Temp Pulse Resp BP Pulse Ox
97.6 F 95 20 156/82 97
11/25/24 11:18 11/25/24 11:18 11/25/24 11:18 11/25/24 11:18 11/25/24 11:18
I&O
11/24/24 11/25/24 11/26/24
06:59 06:59 06:59
Intake Total 1200 / 1200 1210 / 1210
Output Total 4400 / 4400 2150 / 2150
Balance -3200 / -3200 -940 / -940
Physical Exam
Physical Exam
GEN: No acute distress, conversant, pleasant
HEENT: anicteric, extraocular movements intact, clear oropharynx without exudates
GI: soft, distended, not tender to palpation, normal active bowel sounds, no hepatosplenomegaly
EXT: warm, well perfused, trace edema bilaterally
NEURO: AAOx3, non-focal
[2024-11-25 17:18] LABS: Glucose - Point of Care 122 mg/dl (70-99)
[2024-11-25] MEDS: TYLENOL 1000 MG PO ×2 (18:38→21:39)
[2024-11-25] MEDS: REMOVE LIDOCAINE PATCH REMOVE (19:56)
[2024-11-25 20:54] LABS: Glucose - Point of Care 172 mg/dl (70-99)
[2024-11-25] MEDS: SEROQUEL 100 MG PO (21:35)
[2024-11-26] VITALS (7 sets, daily range): BP systolic 131–174; BP diastolic 59–91; PULSE 94–100; O2SAT 98
[2024-11-26] MEDS: STERILE WATER FOR INJECTION 10 ML IV ×2 (05:10→18:23)
[2024-11-26] MEDS: MAXIPIME 1000 MG IV ×2 (05:10→18:23)
[2024-11-26 06:59] LABS: Hematocrit 28.4 % (39.0-52.0); Hemoglobin 9.5 g/dL (13.0-18.0); Mean Corp Hgb Conc. 33.5 g/dL (33.0-37.0); Mean Corpuscular Volume 93.7 fL (80.0-94.0); Platelet Count 267 10^3/uL (130-400); Red Cell Dist. Width 14.9 % (11.5-14.5)
[2024-11-26 07:08] LABS: Glucose - Point of Care 116 mg/dl (70-99)
[2024-11-26 07:19] LABS: Blood Urea Nitrogen 22 mg/dl (9-20); Calcium 9.4 mg/dl (8.4-10.2); Carbon Dioxide 28 mmol/L (22-30); Chloride 108 mmol/L (98-107); Estimated Creatinine Clearance 27 ml/min; Glucose 111 mg/dl (70-99); Magnesium 1.7 mg/dl (1.6-2.3); Potassium 3.8 mmol/L (3.5-5.1); Sodium 141 mmol/L (135-145); eGFR 32.02
[2024-11-26] MEDS: FOLVITE 1 MG PO (08:55)
[2024-11-26] MEDS: MIRALAX 17 GRAMS PO (08:55)
[2024-11-26] MEDS: DEPAKOTE ER (24 HR RELEASE) 1500 MG PO (08:55)
[2024-11-26] MEDS: PROTONIX IV 40 MG IV ×2 (08:55→20:03)
[2024-11-26] MEDS: NSS (PRESERVATIVE FREE) 10 ML IV ×2 (08:55→20:03)
[2024-11-26] MEDS: TYLENOL 1000 MG PO ×3 (08:55→21:31)
[2024-11-26] MEDS: NORVASC 5 MG PO ×2 (08:55→14:12)
[2024-11-26] MEDS: LIDOCAINE 4% PATCH TOPICAL ×2 (08:56→09:05)
[2024-11-26] MEDS: NOVOLOG FLEXPEN-LOW RESISTANCE SC (08:57)
[2024-11-26] MEDS: SODIUM BICARBONATE 1300 MG PO ×3 (09:02→21:28)
[2024-11-26] MEDS: WELLBUTRIN XL (24 hour extended release) 150 MG PO (09:02)
--- NOTE | 2024-11-26 11:35 | W.PN.ID1 ---
Date of Service
Date of Service: November 26, 2024
Today's Communication
Continue antibiotics
Assessment / Plan
Complicated urinary tract infection 2* Serratia marcescens
Obstructive uropathy
- s/p right PCN placement
Leukocytosis
MICHELLE
DM
Seizure disorder
HTN
Dyslipidemia
Bipolar disorder
Bladder CA
Recommendations:
White count normal.
Outpatient cultures reviewed with recovery of Serratia marcescens
Continue with cefepime (d#8). Dose has been adjusted for renal insufficiency.
Patient for further workup and biopsy of abdominal mass.
Transition to cefdinir 300 mg PO daily at time of discharge; continue through 12/02/24. (Outpatient Serratia isolate susceptible to ceftriaxone)
����������������������������������������������������������
Chief Complaint
-: UTI
Subjective / Review of Systems
Review of Systems: No Fever and No Chills
Vital Signs / Physical Exam
Vital Signs
Vital Signs
Temp Pulse Resp BP Pulse Ox
98.1 F 83 16 156/86 97
11/26/24 11:34 11/26/24 11:34 11/26/24 11:34 11/26/24 11:34 11/26/24 11:34
Physical Exam
Constitutional: No Acute Distress, Comfortable and Non-toxic
Eyes: Sclera Anicteric
Cardiovascular: S1/S2; Negative S3/S4
Pulmonary: Clear and Non Labored
Gastrointestinal: Soft, Non Tender and Non Distended
Genito-Urinary: Other (Right urostomy in place. Right PCN in place; clear urine)
Extremities: Edema; Negative Cyanosis or Erythema
Neurological: Awake and Alert
Psychological: Calm
Objective Data
Lab Data
Lab Results
11/26/24 06:01
11/26/24 06:01
PT 14.0 Sec (11.4-14.6) 11/19/24 08:37
INR 1.03 11/19/24 08:37
Estimated Creat Clear 27 ml/min 11/26/24 06:01
Lactic Acid Cancelled 11/18/24 21:45
Total Bilirubin 0.6 mg/dl (0.2-1.3) 11/18/24 15:11
AST 17 U/L (17-59) 11/18/24 15:11
ALT 10 U/L (0-50) 11/18/24 15:11
Alkaline Phosphatase 93 U/L (38-126) 11/18/24 15:11
Most recent labs reviewed.
Micro Results:
11/18/24 15:11 Blood Culture - Final
Blood/Venous No Growth - Final Report
11/19/24 15:29 Urine Culture - Final
Urine NO GROWTH
11/18/24 17:52 Urine Culture - Final
Urine
Collection Date: 11/11/2024 12:02:00
Result Recd: 11/17/2024 10:09:30
Report: 11/17/2024 10:05:00
Ordering Physician: TOÑITO SANTANA
Urinalysis, Routine - [id number]
NAME VALUE REFERENCE RANGE
Specific [place] 1.018 1.005-1.030
pH 6.0 5.0-7.5
Urine-Color Yellow Yellow
Appearance Turbid A Clear
WBC Esterase 3+ A Negative
Protein 3+ A Negative/Trace
Glucose Negative Negative
Ketones Negative Negative
Occult Blood 1+ A Negative
Bilirubin Negative Negative
Nitrite, Urine Positive Negative
Microscopic Examination See below:
Microscopic was indicated and was performed.
WBC >30 A 0 - 5 (/hpf)
RBC 3-10 A 0 - 2 (/hpf)
Epithelial Cells 0-10 0 - 10 (/hpf)
Bacteria Many None seen/Few
11/11/2024 - Urine culture (performend at [facility])
Serratia marcescens - Identified by MALDI-TOF mass spectrometry.
Greater than 100,000 colony forming units per mL
Antibiotic
Amikacin S
Amoxicillin/Clavulanic Acid R
Aztreonam S
Cefepime S
Cefotaxime S
Cefoxitin R
Ceftazidime S
Ceftazidime/avibactam S
Ceftriaxone S
Cefuroxime R
Ciprofloxacin I
Ertapenem S
Gentamicin S
Levofloxacin I
Meropenem S
Meropenem/vaborbactam S
Nitrofurantoin R
Tetracycline R
Tobramycin S
Imaging:
11/25/2024 MRI pelvis: There is a 4.0 x 3.6 x 4.0 cm heterogeneously enhancing lesion within the posterior aspect of the right lower quadrant which appears to extend along the distal right ureter. This lesion abuts the adjacent small bowel as well as
the adjacent right iliac vessels. This lesion is concerning for disease recurrence or a possible enlarged right iliac lymph node.
11/18/2024 CT abdomen/pelvis without contrast: A new soft tissue mass in the right lower quadrant of the abdomen concerning for recurrent disease measuring approximately 4.4 x 4.0 x 5.4 cm. Obstruction of the distal right ureter is noted at this
level with upstream moderate right hydroureteronephrosis noted. Patient is status post previous cystoprostatectomy with right lower quadrant urostomy and ileal conduit. There is a large amount of stool in the rectum concerning for
constipation/fecal impaction. Please see full dictation for additional detail.
[2024-11-26 11:52] LABS: Glucose - Point of Care 172 mg/dl (70-99)
[2024-11-26] MEDS: NOVOLOG FLEXPEN-LOW RESISTANCE 1 UNITS SC ×2 (12:28→18:21)
--- NOTE | 2024-11-26 12:49 | W.PN.URO.CBU ---
Today's Communication / Plan
-
discharge when medically stable
Assessment / Plan
-
Suspected cancer recurrence w/ right ureteral obstruction (new)
MICHELLE
Bladder cancer s/p robotic cystectomy + ileal loop ([facility])
Shaheen
H/o left ureteral obstruction with nephroureteral stent with access via stoma
11/19: s/p right nephrostomy (IR)
pt stable
unfortunately- even with max kidney drainage- cr has settled at around 2
on antibx for UTI
tolerating low residue diet
in terms of abd mass- confirmed on MRI- but IR does not feel amenable to perc bx
reviewed with pt and family
plan is for SNIF- then f/u at [facility]
Diagnosis
-
Date of Service: November 26, 2024
-
Patient Diagnosis:
Bladder cancer s/p robotic cystectomy + ileal loop ([facility])
UTI
H/o left ureteral obstruction with nephroureteral stent with access via stoma
Suspected cancer recurrence w/ right ureteral obstruction (new)
Post Op Day:
11/19: s/p right nephrostomy (IR)
Subjective
-
pt feels somewhat better
no fevers/wbc normalized
cr still elevated
urine clear
Objective
-
Vital Signs
Temp Pulse Resp BP Pulse Ox
98.1 F 83 16 156/86 97
11/26/24 11:34 11/26/24 11:34 11/26/24 11:34 11/26/24 11:34 11/26/24 11:34
Intake and Output
11/25/24 11/26/24 11/27/24
06:59 06:59 06:59
Intake Total 1210 / 1210
Output Total 2150 / 2150 2550 / 2550
Balance -940 / -940 -2550 / -2550
Intake:
Oral fluids 1200 / 1200
IV piggybacks
Output:
Urinary Drain Output (Total) 800 / 800 1225 / 1225
Right Nephrostomy 800 / 800 1225 / 1225
Urine, [place] 200 / 200
Urostomy output 1150 / 1150 1325 / 1325
Laboratory Results
11/26/24 06:01
11/26/24 06:01
Review of Systems
-
Constitutional: Fatigue
Respiratory: No Symptoms
Cardiac: No Symptoms
Abdomen/GI: No Symptoms
Musculoskeletal: Other (back pain)
Physical Exam
-
General - no acute distress
Abdomen - soft, non-tender,right perc/ healthy stoma with stent
Genitalia - normal
--- NOTE | 2024-11-26 12:55 | W.PN.HOSP.TC ---
Today's Communication/Plan
-
dc to SNF
Assessment / Plan
Assessment / Plan
Physical Exam
General: No acute distress, appears comfortable at this time
HEENT: Normocephalic, Moist mucous membranes and Atraumatic
Respiratory: Clear
Cardiac: S1/S2 and Regular Rhythm; No Murmur or Rub
Abd: Soft, some tenderness on palpation, Distended, Bowel sounds present, Urostomy bag in place, right Nephrostomy tube in place
Musculoskeletal: No Clubbing, No Cyanosis and No Edema
Skin: No Rash
Neuro: AO x 3 conversant coherent
Psych: calm
74M Complicated urinary tract infection in patient with history of bladder cancer status post cystoprostatectomy ileal conduit and prior left ureteral stent who presents to the emergency department with feeling feverish and found to have a positive
UA with history of MDR in the past. Unfortunately was found to have MICHELLE with a creatinine of 2.9 and a BUN of 41 and potassium of 5.7. He also has newfound obstruction with a soft tissue mass in the right lower quadrant of the abdomen concerning
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 Otherwise VSS afebrile non-septic appearing.
Assessment:
Complicated urinary tract infection
Hx of bladder cancer s/p cystoprostatectomy ileal conduit (UTI related to obstructive mass)
- s/p IR eval and placement of R PCN 11/19
- ID following; continue Cefepime (Cefdinir at discharge) through 12/02/24
- Urology following; patient originally planned for follow up with Dr. 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 But family has requested pursuit at [facility]; MRI
reviewed with IR/urology and IR does not feel amenable to perc bx
Obstructive MICHELLE
Metabolic acidosis
Hyperkalemia
- continue oral bicarb
- Lokelma x 1; monitor K
- hold nephrotoxins (including Metformin)
- Cr stable 2.1
Ileus
Constipation
- s/p suppository, enema with some BMs
- s/p subsequent additional enema 11/23 with large BM and 11/24
- repeat AXR with contrast progression into colon; improving on todays AXR
- diet: LRD
- continue Simethicone for ongoing belching
- GI signed off
Type 2 DM
- holding Metformin with MICHELLE
- holding Glimepiride
- SSI
Bipolar disorder
- Continue with Depakote
- Continue bupropion
Essential [place]
- continue Amlodipine 10mg
- cont prn IV hydralazine SBP>160 or DBP>100
DVT prophylaxis: SCDs
Code: Full
Anticipated Discharge: 24 - 48 hours
Subjective/Interval History
-
Date of Service: November 26, 2024
resting comfortably
tolerating diet
Objective Data
-
Labs:
Laboratory Results
11/26/24
06:01
WBC 9.1
Hgb 9.5 L
Hct 28.4 L
Plt Count 267
Sodium 141
Potassium 3.8
Chloride 108 H
Carbon Dioxide 28
BUN 22 H
Creatinine 2.1 H
Glucose 111 H
Calcium 9.4
Vital Signs:
Vital Signs
Temp Pulse Resp BP Pulse Ox
98.1 F 83 16 156/86 97
11/26/24 11:34 11/26/24 11:34 11/26/24 11:34 11/26/24 11:34 11/26/24 11:34
I&O
11/25/24 11/26/24 11/27/24
06:59 06:59 06:59
Intake Total 1210 / 1210
Output Total 2150 / 2150 2550 / 2550
Balance -0 / - -2549 / -2549
Data Reviewed
-
Total Time Spent with Patient (in minutes): 42
MRI: Report Reviewed by me
Labs: Labs Reviewed by me
[2024-11-26] MEDS: AMARYL 1 MG PO (14:09)
[2024-11-26 17:47] LABS: Glucose - Point of Care 157 mg/dl (70-99)
[2024-11-26] MEDS: REMOVE LIDOCAINE PATCH REMOVE (20:05)
[2024-11-26 21:22] LABS: Glucose - Point of Care 185 mg/dl (70-99)
[2024-11-26] MEDS: SEROQUEL 100 MG PO (21:28)
[2024-11-27 03:21] VITALS: BP 138/73
[2024-11-27] MEDS: STERILE WATER FOR INJECTION 10 ML IV (05:11)
[2024-11-27] MEDS: MAXIPIME 1000 MG IV (05:11)
[2024-11-27 07:00] VITALS: BP 130/91
[2024-11-27 07:46] LABS: Glucose - Point of Care 88 mg/dl (70-99)
[2024-11-27] MEDS: NOVOLOG FLEXPEN-LOW RESISTANCE SC (07:54)
[2024-11-27] MEDS: NORVASC 10 MG PO (07:56)
[2024-11-27] MEDS: DEPAKOTE ER (24 HR RELEASE) 1500 MG PO (07:56)
[2024-11-27] MEDS: FOLVITE 1 MG PO (07:57)
[2024-11-27] MEDS: SODIUM BICARBONATE 1300 MG PO (07:57)
[2024-11-27] MEDS: TYLENOL 1000 MG PO (07:57)
[2024-11-27] MEDS: WELLBUTRIN XL (24 hour extended release) 150 MG PO (07:58)
[2024-11-27] MEDS: PROTONIX 40 MG PO (08:00)
[2024-11-27] MEDS: LIDOCAINE 4% PATCH TOPICAL (08:02)
[2024-11-27] MEDS: MIRALAX 17 GRAMS PO (08:05)
[2024-11-27] MEDS: AMARYL 1 MG PO (08:16)
[2024-11-27] MEDS: ULTRAM 25 MG PO (08:36)
--- NOTE | 2024-11-27 09:53 | W.PN.ID1 ---
Date of Service
Date of Service: November 27, 2024
Today's Communication
Transition to cefdinir 300 mg PO daily at time of discharge; continue through 12/02/24. (Outpatient Serratia isolate susceptible to ceftriaxone)
Assessment / Plan
Complicated urinary tract infection 2* Serratia marcescens
Obstructive uropathy
- s/p right PCN placement
Leukocytosis
MICHELLE
DM
Seizure disorder
HTN
Dyslipidemia
Bipolar disorder
Bladder CA
Recommendations:
Outpatient cultures reviewed with recovery of Serratia marcescens
Continue with cefepime (d#9). Dose has been adjusted for renal insufficiency.
Patient for further workup and biopsy of abdominal mass outpatient at [facility]
Transition to cefdinir 300 mg PO daily at time of discharge; continue through 12/02/24. (Outpatient Serratia isolate susceptible to ceftriaxone)
����������������������������������������������������������
Chief Complaint
-: UTI
Subjective / Review of Systems
afebrile
BP stable
no events overnight
no complaints
Vital Signs / Physical Exam
Vital Signs
Vital Signs
Temp Pulse Resp BP Pulse Ox
98.5 F 91 18 130/91 96
11/27/24 07:00 11/27/24 07:00 11/27/24 03:21 11/27/24 07:00 11/27/24 07:00
Physical Exam
Constitutional: No Acute Distress
Cardiovascular: Regular Rate and S1/S2; Negative Murmur or Rub
Pulmonary: Clear and Symmetric; Negative Wheezes or Rales
Gastrointestinal: Soft, Non Tender, Non Distended and Normal Bowel Sounds
Skin: Warm and Dry; Negative Rash or Jaundice
Objective Data
Lab Data
Lab Results
11/26/24 06:01
11/26/24 06:01
PT 14.0 Sec (11.4-14.6) 11/19/24 08:37
INR 1.03 11/19/24 08:37
Estimated Creat Clear 27 ml/min 11/26/24 06:01
Lactic Acid Cancelled 11/18/24 21:45
Total Bilirubin 0.6 mg/dl (0.2-1.3) 11/18/24 15:11
AST 17 U/L (17-59) 11/18/24 15:11
ALT 10 U/L (0-50) 11/18/24 15:11
Alkaline Phosphatase 93 U/L (38-126) 11/18/24 15:11
Most recent labs reviewed.
Micro Results:
11/18/24 15:11 Blood Culture - Final
Blood/Venous No Growth - Final Report
11/19/24 15:29 Urine Culture - Final
Urine NO GROWTH
11/18/24 17:52 Urine Culture - Final
Urine
Collection Date: 11/11/2024 12:02:00
Result Recd: 11/17/2024 10:09:30
Report: 11/17/2024 10:05:00
Ordering Physician: TOÑITO SANTANA
Urinalysis, Routine - [id number]
NAME VALUE REFERENCE RANGE
Specific [place] 1.018 1.005-1.030
pH 6.0 5.0-7.5
Urine-Color Yellow Yellow
Appearance Turbid A Clear
WBC Esterase 3+ A Negative
Protein 3+ A Negative/Trace
Glucose Negative Negative
Ketones Negative Negative
Occult Blood 1+ A Negative
Bilirubin Negative Negative
Nitrite, Urine Positive Negative
Microscopic Examination See below:
Microscopic was indicated and was performed.
WBC >30 A 0 - 5 (/hpf)
RBC 3-10 A 0 - 2 (/hpf)
Epithelial Cells 0-10 0 - 10 (/hpf)
Bacteria Many None seen/Few
[facility]11[facility]2024 - [facility]
Serratia marcescens - Identified by MALDI-TOF mass spectrometry.
Greater than 100,000 colony forming units per mL
Antibiotic
Amikacin S
Amoxicillin/Clavulanic Acid R
Aztreonam S
Cefepime S
Cefotaxime S
Cefoxitin R
Ceftazidime S
Ceftazidime/avibactam S
Ceftriaxone S
Cefuroxime R
Ciprofloxacin I
Ertapenem S
Gentamicin S
Levofloxacin I
Meropenem S
Meropenem/vaborbactam S
Nitrofurantoin R
Tetracycline R
Tobramycin S
Imaging:
11/25/2024 MRI pelvis: There is a 4.0 x 3.6 x 4.0 cm heterogeneously enhancing lesion within the posterior aspect of the right lower quadrant which appears to extend along the distal right ureter. This lesion abuts the adjacent small bowel as well as
the adjacent right iliac vessels. This lesion is concerning for disease recurrence or a possible enlarged right iliac lymph node.
11/18/2024 CT abdomen/pelvis without contrast: A new soft tissue mass in the right lower quadrant of the abdomen concerning for recurrent disease measuring approximately 4.4 x 4.0 x 5.4 cm. Obstruction of the distal right ureter is noted at this
level with upstream moderate right hydroureteronephrosis noted. Patient is status post previous cystoprostatectomy with right lower quadrant urostomy and ileal conduit. There is a large amount of stool in the rectum concerning for
constipation/fecal impaction. Please see full dictation for additional detail.
--- NOTE | 2024-11-27 11:46 | W.PN.HOSP.TC ---
Today's Communication/Plan
-
dc today to [facility]
Assessment / Plan
Assessment / Plan
Physical Exam
General: No acute distress, appears comfortable at this time
HEENT: Normocephalic, Moist mucous membranes and Atraumatic
Respiratory: Clear
Cardiac: S1/S2 and Regular Rhythm; No Murmur or Rub
Abd: Soft, some tenderness on palpation, Distended, Bowel sounds present, Urostomy bag in place, right Nephrostomy tube in place
Musculoskeletal: No Clubbing, No Cyanosis and No Edema
Skin: No Rash
Neuro: AO x 3 conversant coherent
Psych: calm
74M Complicated urinary tract infection in patient with history of bladder cancer status post cystoprostatectomy ileal conduit and prior left ureteral stent who presents to the emergency department with feeling feverish and found to have a positive
UA with history of MDR in the past. Unfortunately was found to have MICHELLE with a creatinine of 2.9 and a BUN of 41 and potassium of 5.7. He also has newfound obstruction with a soft tissue mass in the right lower quadrant of the abdomen concerning
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 Otherwise VSS afebrile non-septic appearing.
Assessment:
Complicated urinary tract infection
Hx of bladder cancer s/p cystoprostatectomy ileal conduit (UTI related to obstructive mass)
- s/p IR eval and placement of R PCN 11/19
- ID following; continue Cefepime (Cefdinir at discharge) through 12/02/24
- Urology following; patient originally planned for follow up with Dr. 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 But family has requested pursuit at [facility]; MRI
reviewed with IR/urology and IR does not feel amenable to perc bx
Obstructive MICHELLE
Metabolic acidosis
Hyperkalemia
- continue oral bicarb
- Lokelma x 1; monitor K
- hold nephrotoxins (including Metformin)
- Cr stable around 2.0
Ileus
Constipation
- s/p suppository, enema with some BMs
- s/p subsequent additional enema 11/23 with large BM and 11/24
- repeat AXR with contrast progression into colon; improving on todays AXR
- diet: LRD
- continue Simethicone for ongoing belching
- GI signed off
Type 2 DM
- stop Metformin
- renally dosed Glimepiride
- SSI
Bipolar disorder
- Continue with Depakote
- Continue bupropion
Essential TN
- continue Amlodipine 10mg
- cont prn IV hydralazine SBP>160 or DBP>100
DVT prophylaxis: SCDs
Code: Full
More than 30 minutes spent in discharge including
Final examination of the patient
Summarizing hospital stay
Instructions for continuing care to all relevant caregivers
Preparation of discharge records, prescriptions, and referral forms
Total time spent (in minutes):41
Anticipated Discharge: Today
Subjective/Interval History
-
Date of Service: November 27, 2024
resting comfortably, no complaints
Objective Data
-
Vital Signs:
Vital Signs
Temp Pulse Resp BP Pulse Ox
98.5 F 91 18 130/91 96
11/27/24 07:00 11/27/24 07:00 11/27/24 03:21 11/27/24 07:00 11/27/24 07:00
I&O
11/26/24 11/27/24 11/28/24
06:59 06:59 06:59
Intake Total 1080 / 1080
Output Total 2550 / 2550 2049
Balance -2550 / -2550 -970 / -970
Data Reviewed
-
Total Time Spent with Patient (in minutes): 41
Labs: Labs Reviewed by
--- NOTE | 2024-11-27 12:04 | W.DS.TRANS ---
DC Summary - [employer]
-
Discharge Instructions:
Discharge Diagnosis/Procedures Complicated urinary tract infection, ureteral
mass, MICHELLE. Ileus
Diet Low Residue
Activity As tolerated
Bathing Restrictions None
Other Services PT,OT
Instructions:
Stand-Alone Forms:
Changes to Home Medications: Yes
Discharge Medications:
DC Medications w/original date entered in [facility]
bupropion HCl 150 mg 24 hr tablet, extended release 150 mg PO DAILY Depression 12/06/23
metformin 500 mg tablet 500 mg PO BID Diabetes 12/06/23
quetiapine 100 mg tablet 100 mg PO HS Sleep 12/06/23
rosuvastatin 10 mg tablet 10 mg PO DAILY High Cholesterol 12/06/23
divalproex 500 mg tablet,extended release 24 hr 1,500 mg PO DAILY Mental Health/Anxiety 09/02/24
folic acid 0.8 mg capsule 0.8 mg PO DAILY Supplement 09/02/24
sodium bicarbonate 650 mg tablet 1,300 mg (2 x 650 mg) PO TID #0 tabs 09/08/24
acetaminophen 325 mg tablet 650 mg (2 x 325 mg) PO Q4HPRN PRN mild pain/MESSINA/temp> 100.4F #30 tabs 11/27/24
acetaminophen 500 mg tablet (Tylenol Extra Strength) 1,000 mg (2 x 500 mg) PO TID #30 tabs 11/27/24
amlodipine 10 mg tablet 10 mg PO DAILY #30 tabs 11/27/24
cefdinir 300 mg capsule 300 mg PO BID #12 caps 11/27/24
glimepiride 1 mg tablet 1 mg PO DAILY #30 tabs 11/27/24
pantoprazole 40 mg tablet,delayed release 40 mg PO DAILY #30 tabs 11/27/24
tramadol 50 mg tablet 25 mg (1/2 x 50 mg) PO Q6HPRN PRN moderate pain #10 tabs 11/27/24
Home Medication Changes
Glimiperide to 1mg daily for renal function dosing
stopped Metformin
Pending Results: No
Total time spent discharging patient (in min): 41
[2024-11-27 12:09] VITALS: BP 147/79; PULSE 88; O2SAT 97
[2024-11-27 12:52] LABS: Glucose - Point of Care 204 mg/dl (70-99)
--- NOTE | 2024-11-27 13:01 | CM ---
Patient will d/c today to [facility]
CM called [employer] to obtain auth, spoke w/ Josh. Auth approved beginning today, NRD is 12/01
Auth ref # [id number]
Updated patient bedside, IMM verbally reviewed, copy provided, copy on chart
Patient stated he will try and find a ride, will let CM know if he needs transport arranged
[facility]
Report: [phone] (4th Floor)

Plan: D/c to [facility] today
[2024-11-27] MEDS: NOVOLOG FLEXPEN-LOW RESISTANCE 2 UNITS SC (13:10)
== END 2024-11-27 15:30 | DRG 683 ==
LOC: 4 WEST ACU 20:32
PROVIDERS: Emergency Medicine; Internal Medicine; Physician Assistant Medical; Radiology Vascular & Interventional Radiology; ADMITTING PHYSICIAN Internal Medicine; ATTENDING PHYSICIAN Internal Medicine; CONSULT PHYSICIAN Internal Medicine; CONSULT PHYSICIAN Internal Medicine Infectious Disease; CONSULT PHYSICIAN Specialist; EMERGENCY PHYSICIAN Emergency Medicine; FAMILY PHYSICIAN Internal Medicine
PROC: 0T9330Z Drainage of Right Kidney Pelvis with Drainage Device, Percutaneous Approach (ICD-10-PCS; 2024-11-19)
DX: N17.9 Acute kidney failure, unspecified (principal); E87.20 Acidosis, unspecified; K56.7 Ileus, unspecified; Z16.24 Resistance to multiple antibiotics; R18.8 Other ascites; N13.6 Pyonephrosis; E78.00 Pure hypercholesterolemia, unspecified; I10 Essential (primary) hypertension; F31.9 Bipolar disorder, unspecified; E11.9 Type 2 diabetes mellitus without complications; E87.5 Hyperkalemia; G40.909 Epilepsy, unspecified, not intractable, without status epilepticus; N40.0 Benign prostatic hyperplasia without lower urinary tract symptoms; K57.30 Diverticulosis of large intestine without perforation or abscess without bleeding; N28.89 Other specified disorders of kidney and ureter; Z85.51 Personal history of malignant neoplasm of bladder; Z87.440 Personal history of urinary (tract) infections; Z90.6 Acquired absence of other parts of urinary tract; Z90.79 Acquired absence of other genital organ(s); Z85.828 Personal history of other malignant neoplasm of skin; Z88.0 Allergy status to penicillin; Z79.899 Other long term (current) drug therapy; Z79.84 Long term (current) use of oral hypoglycemic drugs; Z89.022 Acquired absence of left finger(s); Z87.891 Personal history of nicotine dependence; Z86.008 Personal history of in-situ neoplasm of other site; Z93.6 Other artificial openings of urinary tract status
CPT/HCPCS: 50432; 72197; 74018; 74176; 80048; 80053; 81003; 81015; 82962; 83605; 83735; 84100; 85025; 85027; 85610; 87040; 87086; 93005; 96374; 97110; 97116; 97163; 97167; 97530; 97535; 99152; 99153; 99285; A9575; C1729; C1769

== ENCOUNTER → 2024-12-16 11:54 | Outpatient (REF) | payer OTHER, SELFPAY ==
[2024-12-16 13:12] LABS: Hematocrit 27.9 % (39.0-52.0); Hemoglobin 8.9 g/dL (13.0-18.0); Mean Corp Hgb Conc. 31.9 g/dL (33.0-37.0); Mean Corpuscular Volume 94.3 fL (80.0-94.0); Nucleated Red Blood Cells % 0 % (-); Platelet Count 321 10^3/uL (130-400); Red Cell Dist. Width 14.4 % (11.5-14.5)
[2024-12-16 13:43] LABS: Blood Urea Nitrogen 29 mg/dl (9-20); Calcium 10.2 mg/dl (8.4-10.2); Carbon Dioxide 25 mmol/L (22-30); Chloride 106 mmol/L (98-107); Glucose 150 mg/dl (70-99); Potassium 4.3 mmol/L (3.5-5.1); Sodium 141 mmol/L (135-145); eGFR 27.28
== END ==
LOC: OLABP 11:54
PROVIDERS: ATTENDING PHYSICIAN Internal Medicine
DX: N39.0 Urinary tract infection, site not specified (principal); E11.9 Type 2 diabetes mellitus without complications; E87.5 Hyperkalemia; F31.9 Bipolar disorder, unspecified; I10 Essential (primary) hypertension
CPT/HCPCS: 36415; 80048; 85025